=== PATIENT | female | born 1960 | race Caucasian/White ===

== ENCOUNTER 2020-06-20 15:31 | Outpatient (REF) | payer OTHER, SELFPAY ==
--- NOTE | 2020-06-20 | MM_ITS ---
EXAMINATION: MM SCREENING DIGITAL BREAST TOMOSYNTHESIS, BILATERAL CLINICAL INFORMATION: Screening. Asymptomatic. The lifetime risk of breast cancer based on the Tyrer-Cuzick Model is 11%. COMPARISON: Mammography: 09/20/2018, 09/06/2017, 07/31/2016 TECHNIQUE: Digital breast tomosynthesis is performed in both the craniocaudal and mediolateral oblique views along with computer-aided detection (CAD). Synthesized 2D images are generated from the tomosynthesis. Additional right MLO view is provided. FINDINGS: There are scattered areas of fibroglandular density (ACR BI-RADS breast composition Category b). There are no significant masses, abnormal calcifications, or other abnormalities. Parenchymal pattern is similar to prior studies. MM/MM tomosynthesis screening BI IMPRESSION: No mammographic evidence of malignancy. ASSESSMENT: BI-RADS 1: Negative RECOMMENDATION: Routine annual mammography screening. This patient's information was entered into a reminder system with a target due date for their next mammogram.
== END 2020-06-20 15:32 | disposition home or self-care (01) ==
LOC: HO.MAMMO 15:31
PROVIDERS: PCP Family Medicine; Visit Provider Family Medicine
DX: Z12.31 Encounter for screening mammogram for malignant neoplasm of breast (principal)
CPT/HCPCS: 77063; 77067

== ENCOUNTER 2020-09-23 17:35 | Emergency (ER) | payer OTHER, SELFPAY ==
--- NOTE | ~2020-09-23 | XR_ITS ---
EXAMINATION: LUMBAR SPINE AND LEFT HIP CLINICAL INFORMATION: Back pain radiating to hip COMPARISON: Lumbar spine 02/25/[address] abdomen pelvis 02/16/2011 TECHNIQUE: 4 views lumbosacral spine, single view pelvis with 2 additional views left hip FINDINGS: Lumbar spine: Degenerative changes are present in the lumbar spine with mild disc space narrowing at L2-L3 and L4-L5 with large anterior osteophytes. Degenerative changes also present at L5-S1. No bony destructive lesions are seen. Pelvis and left hip: Mild degenerative changes are present in both hips, left greater than right with supra-acetabular sclerosis and osteophyte formation. No fractures or bony destructive lesions are seen. Degenerative changes present in both SI joints as well. XR/XR lumbar spine 2-3V IMPRESSION: 1. Mild degenerative changes lumbar spine. 2. Mild degenerative changes both hips, left greater than right. 3. Sclerotic degenerative changes SI joints
--- NOTE | ~2020-09-23 | XR_ITS ---
EXAMINATION: LUMBAR SPINE AND LEFT HIP CLINICAL INFORMATION: Back pain radiating to hip COMPARISON: Lumbar spine 02/25/[address] abdomen pelvis 02/16/2011 TECHNIQUE: 4 views lumbosacral spine, single view pelvis with 2 additional views left hip FINDINGS: Lumbar spine: Degenerative changes are present in the lumbar spine with mild disc space narrowing at L2-L3 and L4-L5 with large anterior osteophytes. Degenerative changes also present at L5-S1. No bony destructive lesions are seen. Pelvis and left hip: Mild degenerative changes are present in both hips, left greater than right with supra-acetabular sclerosis and osteophyte formation. No fractures or bony destructive lesions are seen. Degenerative changes present in both SI joints as well. XR/XR hip LT w PEL1V IMPRESSION: 1. Mild degenerative changes lumbar spine. 2. Mild degenerative changes both hips, left greater than right. 3. Sclerotic degenerative changes SI joints
[2020-09-23 18:38] VITALS: BP 154/83; PULSE 98; RESP 18; TEMP 36.1; O2SAT 97; BMI 40.6
[2020-09-23] MEDS: predniSONE 20 MG TABLET 60 MG PO (19:59)
[2020-09-23] MEDS: Cyclobenzaprine HCl 5 MG TABLET PO (19:59)
[2020-09-23] MEDS: Ketorolac Tromethamine 30 MG/ML VIAL IM (20:00)
--- NOTE | 2020-09-23 20:05 | ED.GENADULT ---
HPI - General Adult General Chief complaint: Extremity Problem Stated complaint: LEG PAIN Time Seen by Provider: 09/23/20 18:50 Source: patient Mode of arrival: ambulatory Limitations: no limitations History of Present Illness HPI narrative: Patient presents to left lower back left hip pain radiating down leg. Patient states yesterday she was in the shower and took a step and turned too quickly and felt sudden pain in her left lower back and left hip. Patient states she feels like she pulled a muscle in her back. Patient denies falling to the ground hitting or head. Patient states left low back pain radiating down leg. Patient denies any actual pain on leg. Patient denies any urinary/bowel incontinence Related Data Previous Rx's Medication Instructions Recorded acetaminophen [Tylenol] 325 mg PO QID PRN #28 cap 09/23/20 cyclobenzaprine 10 mg PO TID PRN #18 tab 09/23/20 prednisone 40 mg PO DAILY 7 Days #14 tab 09/23/20 Allergies Allergy/AdvReac Type Severity Reaction Status Date / Time No Known Allergies Allergy Unverified 03/07/20 16:08 [No Known Allergies*] seafood Allergy Unknown Unknown Uncoded 09/23/20 18:35 whey protein Allergy Unknown Unknown Uncoded 09/23/20 18:35 Review of Systems Review of Systems: Yes all other systems are reviewed and are negative Constitutional: Constitutional: Reports as per HPI and Reports no additional constitutional complaints Eyes: Eyes: Reports as per HPI and Reports no additional eye complaints ENT: Reports system reviewed and no additional complaints, except as documented and Reports as per HPI Cardiovascular: Cardiovascular: Reports as per HPI and Reports no additional cardiovascular complaints Respiratory: Respiratory: Reports as per HPI and Reports no additional respiratory complaints Gastrointestinal: Gastrointestinal: Reports as per HPI and Reports no additional gastrointestinal complaints Genitourinary: Genitourinary: Reports no additional female genitourinary complaints and Reports as per HPI Musculoskeletal: Musculoskeletal: Reports no additional musculoskeletal complaints, Reports as per HPI and Reports back pain (Left-sided radiating down left leg.) Neurologic: Reports system reviewed and no additional complaints, except as documented and Reports as per HPI Psychiatric: Psychiatric: Reports no additional psychiatric complaints and Reports as per HPI PMF Social History Social History Alcohol intake: never Smoking Status: Former smoker Smoked in Last 30 Days: No Use of substances other than those prescribed or required for medical reasons: No Advance Directives: No Advance Directives Information Provided: Yes Physical Exam Vital Signs: Vital Signs: Last Vital Signs Temp 97.0 F 09/23/20 18:38 Pulse 98 09/23/20 18:38 Resp 18 09/23/20 18:38 BP 154/83 H 09/23/20 18:38 Pulse Ox 97 09/23/20 18:38 Body Mass Index 40.6 Const: General: cooperative, healthy appearing, comfortable, no acute distress, well developed, alert, awake and Physically active Orientation/consciousness: oriented to time and patient oriented x3 HENMT: Head: Yes normal to inspection, Yes No palpable skull fracture present, Yes normocephalic, Yes atraumatic, No abrasion, No Dorantes's sign, No contusion, No cranial bruits, No hematoma, No laceration, No occipital foramen tenderness, No palpable skull fracture, No raccoon eyes, No scalp lesion, No scalp tenderness, No Temporal artery tenderness present and No periorbital ecchymosis Eyes: General: appearance normal, both eyes and all related structures Neck: Neck: Yes normal visual inspection and Yes full ROM Chest: Chest palpation & inspection: normal inspection of the chest and normal palpation of entire chest wall Resp: Effort & Inspection: normal respiratory effort and able to speak in complete sentences Cardio: Jugular venous distension: no JVD Heart sounds: S1 normal heart sound present and S2 normal heart sound present GI: Inspection: Yes normal to inspection and No abdominal wall ecchymosis Palpation (GI): Soft to palpation, not firm, nontender, no guarding and not rigid : Other: Patient refused rectal exam. General: No CVA tenderness and Yes no CVA tenderness Back/Spine/Pelvis: Back: no CVA tenderness, No CVA tenderness and back tenderness ( left sided Lumbar tenderness) Skin: General skin exam: no rashes or lesions noted and elasticity normal Neuro: General: oriented to time, patient oriented x3 and CN's II-XI intact bilaterally Cranial nerves: Yes CN's II-XII intact bilaterally Extrem: Other: Bilateral lower extremities negative for any tenderness, redness, swelling, crepitus, or calf pain. Bilateral lower extremities positive for pedal pulses. Vascular and neuro exam is intact. Mild left hip tenderness Course Course Course Narrative: History physical exam indicates muscle spasm/muscle strain but due to the age will do x-ray to rule out fractures. patient does not want rectal exam, which was recommended due to slight dragging of left leg. Patient refused even when explained it was necessary to make there was no sign of cord compression ( although very unlikely due to history). Reevaluation(s) Reevaluation #1: X-ray negative for fracture but shows chronic arthritis. Patient informed to follow-up with PCP for MRI if back pain does not improve. Medical Decision Making MDM Narrative Medical decision making narrative: Osteoarthritis. Back strain Discharge Plan Discharge Clinical Impression: Low back strain, Hip strain, Osteoarthritis Patient Disposition: Home, Self-Care Instructions: Osteoarthritis (ED), Low Back Strain (ED), Arthritis (ED) Additional Instructions: Regrese inmediatamente al servicio de urgencias si tiene incontinencia urinaria / intestinal, incapacidad para caminar, dolor intenso, disuria, hematuria, v?mitos, dolor abdominal, par?lisis de las extremidades inferiores, fiebre, escalofr?os o cualquier otro s?ntoma que le preocupe. Tesha un seguimiento con olivares PCP para brody resonancia magn?otilio si no hay mejor?a en el dolor Prescriptions: New prednisone 20 mg tablet 40 mg PO DAILY 7 Days Qty: 14 RF: 0 cyclobenzaprine 10 mg tablet 10 mg PO TID PRN (Reason: muscle spasm) Qty: 18 RF: 0 acetaminophen [Tylenol] 325 mg capsule 325 mg PO QID PRN (Reason: pain) Qty: 28 RF: 0 Interventions: ED Discharge Assessment Last Done: 09/23/20 20:38 Discharge Date/Time: 09/23/20 20:42
== END 2020-09-23 20:42 | disposition home or self-care (01) ==
PROVIDERS: Emergency Provider Internal Medicine
DX: S76.012A Strain of muscle, fascia and tendon of left hip, initial encounter (principal); S39.012A Strain of muscle, fascia and tendon of lower back, initial encounter; X50.1XXA Overexertion from prolonged static or awkward postures, initial encounter; M16.0 Bilateral primary osteoarthritis of hip; M47.816 Spondylosis without myelopathy or radiculopathy, lumbar region; R60.0 Localized edema; Y93.E1 Activity, personal bathing and showering; Y92.012 Bathroom of single-family (private) house as the place of occurrence of the external cause; Y99.9 Unspecified external cause status
CPT/HCPCS: 72100; 73502; 96372; 99284; J1885

== ENCOUNTER 2020-10-23 10:59 | Outpatient (REF) | payer SELFPAY | END 2020-10-23 11:00 | disposition home or self-care (01) | LOC: HO.HAP 10:59 | PROVIDERS: Visit Provider Family Medicine | DX: Z46.1 Encounter for fitting and adjustment of hearing aid (principal) | CPT/HCPCS: V5267 ==

== ENCOUNTER 2020-10-23 11:02 | Outpatient (REF) | payer OTHER, SELFPAY | END 2020-10-23 11:03 | disposition home or self-care (01) | LOC: HO.HAP 11:02 | PROVIDERS: Visit Provider Family Medicine | DX: Z46.1 Encounter for fitting and adjustment of hearing aid (principal) | CPT/HCPCS: V5266 ==

== ENCOUNTER → 2020-12-18 08:47 | Outpatient (REF) | payer OTHER, SELFPAY | LOC: HO.CARD 08:47 | PROVIDERS: Visit Provider Internal Medicine Cardiovascular Disease | DX: Z13.89 Encounter for screening for other disorder (principal) ==

== ENCOUNTER → 2020-12-31 09:06 | Outpatient (REF) | payer OTHER, SELFPAY ==
--- NOTE | ~2020-12-31 | NM_ITS ---
Lexiscan Myocardial perfusion study Indication: Chest pain, diabetes, hypertension, hyperlipidemia, assess for coronary disease and ischemia Technique: The patient was brought in for a Lexiscan perfusion study on 12/31/2020 and was injected 0.4 mg of Lexiscan intravenously. Within a minute of this injection 30 mCi of sestamibi was given intravenously. Images were obtained using the SPECT gamma camera interlaced with the gating device. Images were obtained in supine position. Resting perfusion study was performed on 01/01/2021. Patient was administered 30 mCi of sestamibi intravenously at rest. Images were then obtained in supine position. Total DLP 175mGy-cm. Images were processed with the software and compared side to side in short axis, horizontal long axis and vertical long axis views. Findings: Raw acquisition was reviewed. The stress perfusion study showed diminished tracer uptake along the distal anterolateral wall. With CT attenuation correction there is improvement and hence could be from soft tissue attenuation artifact. The gated study shows normal LV systolic function with calculated LVEF of 65%. LV cavity is normal in size. The gated study shows normal wall thickening and contraction of segments. Resting study shows no significant perfusion abnormality. Gating at rest reveals normal wall motion with ejection fraction at 67%. The findings are consistent with reversible distal anterolateral defect suspected to be from soft tissue attenuation artifact. NM/NM kofi perf SPECT rest & str Impression: 1. Myocardial perfusion imaging study shows no definitive evidence of any ischemia or infarction. Reversible distal anterolateral defect but improving with CT attenuation correction and hence likely from soft tissue attenuation artifact. 2. Gated LVEF is 65% during stress and 67% during rest. 3. Transient ischemic dilatation not present. EKG component of the test reported separately.
--- NOTE | 2020-12-31 09:30 | CA_ITS ---
Acquisition Time: 2020-12-31 09:40:19 Total Exercise Time: 00:02:00 Test Indications: CP Medications: SEE CHART Protocol: LEXISCAN Max HR: 129 BPM 80% of Pred: 161 BPM Max BP: 128/080 mmHG Max Work Load: 1.0 METS Pharmacological stress test using Lexiscan while sitting and kicking her feet. Pt tolerated well, denies any anginal sx. EKG with occasional PVC's, non-diagnostic for ischemia. Nuclear images to follow. Normotensive response tpo test. Test reviewed with Dr. Aguilar. Referred By: Lonny Mattson Overread By: Kimberly Saenz NP
== END ==
LOC: HO.CARD 09:06
PROVIDERS: Visit Provider Internal Medicine Cardiovascular Disease
DX: R07.9 Chest pain, unspecified (principal)
CPT/HCPCS: 78452; 93017; A9500; J0280; J2785

== ENCOUNTER → 2021-02-26 09:45 | Outpatient (BNVA) | payer OTHER, SELFPAY | PROVIDERS: PCP Family Medicine; Referring Provider Family Medicine; Visit Provider Internal Medicine Cardiovascular Disease | DX: R07.89 Other chest pain (principal); E78.5 Hyperlipidemia, unspecified | CPT/HCPCS: 93005; 99202 ==

== ENCOUNTER 2021-05-07 13:43 | Outpatient (REF) | payer OTHER, SELFPAY | END 2021-05-07 13:44 | disposition home or self-care (01) | LOC: HO.HAP 13:43 | PROVIDERS: Visit Provider Family Medicine | DX: Z46.1 Encounter for fitting and adjustment of hearing aid (principal); H90.3 Sensorineural hearing loss, bilateral | CPT/HCPCS: V5266 ==

== ENCOUNTER 2021-05-07 13:54 | Outpatient (REF) | payer SELFPAY | END 2021-05-07 13:55 | disposition home or self-care (01) | LOC: HO.HAP 13:54 | PROVIDERS: Visit Provider Family Medicine | DX: Z46.1 Encounter for fitting and adjustment of hearing aid (principal); H90.3 Sensorineural hearing loss, bilateral | CPT/HCPCS: V5267 ==

== ENCOUNTER 2021-07-23 11:46 | Outpatient (REF) | payer OTHER, SELFPAY ==
--- NOTE | ~2021-07-23 | MM_ITS ---
EXAMINATION: MM SCREENING DIGITAL BREAST TOMOSYNTHESIS, BILATERAL CLINICAL INFORMATION: Screening. Asymptomatic. The lifetime risk of breast cancer based on the Tyrer-Cuzick Model is 13%. COMPARISON: Mammography: 06/20/2020, 09/20/2018, 09/06/2017 TECHNIQUE: Digital breast tomosynthesis is performed in both the craniocaudal and mediolateral oblique views along with computer-aided detection (CAD). Synthesized 2D images are generated from the tomosynthesis. Additional bilateral MLO views are provided. FINDINGS: There are scattered areas of fibroglandular density (ACR BI-RADS breast composition Category b). There are no significant masses, abnormal calcifications, or other abnormalities. Parenchymal pattern is similar to prior studies. There is no developing density or architectural abnormality. The axilla and skin contours are unremarkable. No significant changes. MM/MM tomosynthesis screening BI IMPRESSION: No mammographic evidence of malignancy. ASSESSMENT: BI-RADS 1: Negative RECOMMENDATION: Routine annual mammography screening. This patient's information was entered into a reminder system with a target due date for their next mammogram.
== END 2021-07-23 11:47 | disposition home or self-care (01) ==
LOC: HO.MAMMO 11:46
PROVIDERS: PCP Family Medicine; Visit Provider Family Medicine
DX: Z12.31 Encounter for screening mammogram for malignant neoplasm of breast (principal)
CPT/HCPCS: 77063; 77067

== ENCOUNTER → 2021-07-30 14:01 | Outpatient (BNVA) | payer OTHER, SELFPAY | PROVIDERS: PCP Family Medicine; Referring Provider Family Medicine; Visit Provider Internal Medicine Cardiovascular Disease | DX: R07.89 Other chest pain (principal); E78.5 Hyperlipidemia, unspecified | CPT/HCPCS: 99212 ==

== ENCOUNTER 2021-11-10 13:38 | Outpatient (REF) | payer MEDICARE, MEDICAID, SELFPAY ==
--- NOTE | 2021-11-12 15:22 | MHC.AU.HAS ---
Hearing Aid Evaluation Date of Visit: 11/10/21 Commercial Lines Underwriter Used: Setswana- By Phone Historical Information: Description of Hearing: Moderate to severe sensorineural hearing loss bilaterally, worse in the right ear Current personal amplification information, if applicable: Oticon Nera Pro CIC, obtaiend 08/10/2014 Summary: Patient was seen for audiological evaluation (see separate report for details). The shell broke on her right hearing aid. Maintenance performed on the left instrument. Patient is eligible for new hearing aids. Options were discussed. She would like to switch to the AGUEDA style. She reports that she does not have a smartphone. Hearing Aid Prescription: Based on the individual?s shared listening needs, communication environments, dexterity, desire for connectivity, and personal preferences, the following prescription for amplification has been made: Right ear: Conductor Orchestra: Phonak Model: Audeo P70-R Battery Size: Rechargeable Color: Silver Investor Relations Analyst: 0M Left ear: Conductor Orchestra: Phonak Model: Audeo P70-R Battery Size: Rechargeable Color: Silver Investor Relations Analyst: 0M Action Taken/Action Needed: Medical Clearance to be requested from PCP/ENT Hearing Instrument Fitting to be scheduled when materials arrive Primary Diagnosis: H90.3 Bilateral Sensorineural Hearing Loss Signature: Provider: Norberto Chung, [facility]
--- NOTE | 2021-11-12 15:23 | MHC.AU.AHA ---
Adult Audiological Evaluation Date of Visit: 11/10/21 Nutrition Professor Used: [place]- By Phone Reason for Appointment: History of hearing loss. Patient's hearing was last evaluated in 2016. She suspects her hearing has decreased over the last 6 years. Previous Hearing Test Results: At this clinic on 07/17/2015- Moderate to moderately-severe sensorineural hearing loss bilaterally, worse in the right ear. Medical History: Medical History: Diabetes, Hypothyroidism, Seasonal Allergies Hearing Instrument History- Right Ear: Caretaker Resort: Oticon Model: Nera Pro CIC Dispensed By: [facility] Date of Fittin08/10/2014 Hearing Instrument History- Left Ear: Caretaker Resort: Oticon Model: Nera Pro CIC Dispensed By: [facility] Date of Fittin08/10/2014 Otoscopy: Right Ear: Unremarkable Left Ear: Unremarkable Hearing Evaluation: Transducer(s) Used: Insert Earphones Method: Conventional Audiometry Stimuli Used: Pure Tones Right Ear: Description of Hearing: Moderate to severe sensorineural hearing loss Left Ear: Description of Hearing: Moderate to severe sensorineural hearing loss Speech Recognition Threshold (SRT): Method Used: Recorded Lists Stimuli Used: [place] Trisyllable Words Right Ear: 70 dBHL Left Ear: 65 dBHL Word Discrimination: Method: Recorded Lists Word Lists Used: Lista Bisil?bica (Anguillan) Right Ear: 96% at 95 dBHL Left Ear: 96% at 90 dBHL Comparison: Compared to the most recent evaluation: Thresholds have decreased bilaterally. Recommendations: Audiological re-evaluation in one year. See Hearing Aid Evaluation report for more information. Diagnosis: Primary Diagnosis: H90.3 Bilateral Sensorineural Hearing Loss Signature: Provider: Norberto Chung, [facility]
--- NOTE | 2021-11-12 15:24 | MHC.AU.MED ---
Medical Clearance for Hearing Instrumentation Date: 11/12/21 Patient Name: Aaron Ignacio Date of : 1960 Referring Provider: Yashira Bethea MD We have seen your patient on 11/10/21 and have determined that they are a candidate for amplification (See accompanying report). Specifically, they would benefit from: Hearing aid use in both ears There is a statute that addresses Medical Evaluation Requirements prior to fitting a patient with a hearing aid. According to [place] statute 265 CMR:6.03(1), (a) General. Except as provided in 265 CMR 6.03(1)(b), a tour bus driver/guide shall not sell a hearing aid unless the prospective user has presented to the tour bus driver/guide a written statement signed by a licensed physician that states that the patient's hearing loss has been medically evaluated and the patient may be considered a candidate for a hearing aid. The medical evaluation must have taken place within the preceding six months. Please note: Due to the [place] Statute referenced above, we cannot accept a signature other than that of a licensed physician. EMPLOYEE RELATIONS DIRECTOR and PA signatures cannot be accepted. I am in agreement with the above recommendation. There is no medical contraindication for hearing instrumentation. Physician Signature Date Physician Name (Printed)
== END 2021-11-10 13:39 | disposition home or self-care (01) ==
LOC: HO.SH 13:38
PROVIDERS: Visit Provider Family Medicine
DX: Z01.118 Encounter for examination of ears and hearing with other abnormal findings (principal); H90.3 Sensorineural hearing loss, bilateral
CPT/HCPCS: 92557; 92591

== ENCOUNTER 2021-12-04 12:20 | Outpatient (REF) | payer MEDICARE, MEDICAID, SELFPAY ==
--- NOTE | 2021-12-08 11:25 | MHC.AU.HFA ---
Hearing Instrument Fitting- Adult- Binaural Date of Visit: 12/04/21 Nurse Emergency Used: No in-person hospital interpreters were available. Patient signed waiver for Demarcus Parra to provide [place] interpretation at today's visit. Hearing Instruments Dispensed: Right Ear: Precision Lens Technician: Phonak Model: Audeo P70-R Serial Number: [id number] Repair Warranty: 02/17/2025 Loss and Damage Warranty: 02/17/2025 Battery Size: Rechargeable Color: Silver Nurses Director: 0M Type of Mold: Small Power Type of Wax Guard: CeruShield Left Ear: Precision Lens Technician: Phonak Model: Audeo P70-R Serial Number: [id number] Repair Warranty: 02/17/2025 Loss and Damage Warranty: 02/17/2025 Battery Size: Rechargeable Color: Silver Nurses Director: 0M Type of Dome: Small Power Type of Wax Guard: CeruShield Summary of Fitting: Patient arrived for hearing aid fitting. Feedback house manager was run. Verifit was performed and levels adjusted to better reach targets. Target gain set to 100%. Patient was pleased with the sound and feel of the instruments. Hearing aid care and maintenance were discussed and practiced. Patient does not currently have a smartphone. Recommendations: Patient is an experienced hearing aid user and will call for follow-up if needed. Diagnosis Code(s): Primary Diagnosis: H90.3 Bilateral Sensorineural Hearing Loss Signature: Provider: Norberto Chung, [facility]
== END 2021-12-04 12:21 | disposition home or self-care (01) ==
LOC: HO.HAP 12:20
PROVIDERS: Visit Provider Family Medicine
DX: Z46.1 Encounter for fitting and adjustment of hearing aid (principal); H90.3 Sensorineural hearing loss, bilateral
CPT/HCPCS: V5011; V5020; V5160; V5261

== ENCOUNTER → 2022-03-19 12:52 | Outpatient (BNVA) | payer MEDICARE, MEDICAID, SELFPAY | PROVIDERS: PCP Family Medicine; Referring Provider Family Medicine; Visit Provider Nurse Practitioner Family | DX: R07.89 Other chest pain (principal); E78.5 Hyperlipidemia, unspecified | CPT/HCPCS: 93005; 99212 ==

== ENCOUNTER 2022-04-07 10:27 | Outpatient (REF) | payer MEDICARE, MEDICAID, SELFPAY | END 2022-04-07 10:28 | disposition home or self-care (01) | LOC: HO.HAP 10:27 | PROVIDERS: Visit Provider Family Medicine | DX: Z13.89 Encounter for screening for other disorder (principal) ==

== ENCOUNTER 2022-04-08 09:56 | Outpatient (REF) | payer MEDICARE, MEDICAID, SELFPAY | END 2022-04-08 09:57 | disposition home or self-care (01) | LOC: HO.HAP 09:56 | PROVIDERS: Visit Provider Family Medicine | DX: Z13.89 Encounter for screening for other disorder (principal) ==

== ENCOUNTER 2022-07-13 10:31 | Outpatient (REF) | payer MEDICARE, MEDICAID, SELFPAY | END 2022-07-13 10:32 | disposition home or self-care (01) | LOC: HO.HAP 10:31 | PROVIDERS: Visit Provider Family Medicine | DX: Z13.89 Encounter for screening for other disorder (principal) ==

== ENCOUNTER 2022-07-14 10:35 | Outpatient (REF) | payer MEDICARE, MEDICAID, SELFPAY | END 2022-07-14 10:36 | disposition home or self-care (01) | LOC: HO.HAP 10:35 | PROVIDERS: Visit Provider Family Medicine | DX: Z13.89 Encounter for screening for other disorder (principal) ==

== ENCOUNTER 2022-07-14 10:40 | Outpatient (REF) | payer SELFPAY | END 2022-07-14 10:41 | disposition home or self-care (01) | LOC: HO.HAP 10:40 | PROVIDERS: PCP Family Medicine; Visit Provider Family Medicine | DX: Z46.1 Encounter for fitting and adjustment of hearing aid (principal); H90.3 Sensorineural hearing loss, bilateral | CPT/HCPCS: V5267 ==

== ENCOUNTER 2022-07-24 12:23 | Outpatient (REF) | payer MEDICARE, MEDICAID, SELFPAY ==
--- NOTE | ~2022-07-24 | MM_ITS ---
EXAMINATION: MM SCREENING DIGITAL BREAST TOMOSYNTHESIS, BILATERAL CLINICAL INFORMATION: Screening. Asymptomatic. The lifetime risk of breast cancer based on the Tyrer-Cuzick Model is 10.6%. COMPARISON: Mammography: July 23, 2021 and studies dating back to June 22, 2015 TECHNIQUE: Digital breast tomosynthesis is performed in both the craniocaudal and mediolateral oblique views along with computer-aided detection (CAD). Synthesized 2D images are generated from the tomosynthesis. FINDINGS: There are scattered areas of fibroglandular density (ACR BI-RADS breast composition Category b). There are no significant masses, abnormal calcifications, or other abnormalities. MM/MM tomosynthesis screening BI IMPRESSION: No significant changes from prior exam. ASSESSMENT: BI-RADS 1: Negative RECOMMENDATION: Routine annual mammography screening. This patient's information was entered into a reminder system with a target due date for their next mammogram.
== END 2022-07-24 12:24 | disposition home or self-care (01) ==
LOC: HO.MAMMO 12:23
PROVIDERS: PCP Family Medicine; Visit Provider Family Medicine
DX: Z12.31 Encounter for screening mammogram for malignant neoplasm of breast (principal)
CPT/HCPCS: 77063; 77067

== ENCOUNTER 2022-09-18 10:33 | Outpatient (REF) | payer MEDICARE, MEDICAID, SELFPAY ==
--- NOTE | 2022-09-18 13:51 | MHC.AU.HA3 ---
Hearing Instrument Follow-Up- Binaural Date of Visit: 09/18/22 Right Ear: Jero, , Color, Serial Number: Nate Paredes P 70-R Juan Carvalho, Serial #[id number] Structural Steel Fitter Repair Warranty: 02/17/2025 Structural Steel Fitter Loss and Damage Warranty: 02/17/2025 [facility] Service Plan: 12/04/2022 Battery Size: Rechargeable Assistant Gm Of Content & Delivery/Slim Tube: 0M Earmold/Dome/CShell/SlimTip:Small power dome Type of Wax Guard: CeruShield Dispensed By: [facility] Date of Fittin12/04/2021 Left Ear: Model Jero, Color, Serial Number: Nate Paredes P 70-R Juan Carvalho Serial # [id number] Structural Steel Fitter Repair Warranty: 02/17/2025 Structural Steel Fitter Loss and Damage Warranty: 02/17/2025 [facility] Service Plan: 12/04/2022 Battery Size: Rechargeable Assistant Gm Of Content & Delivery/Slim Tube: 0M Earmold/Dome/CShell/SlimTip: Small power dome Type of Wax Guard: CeruShield Dispensed By: [facility] Date of Fittin12/04/2021 Follow-Up Summary: Aaron dropped off both hearing aids as well as her optical instrument repairer, cord, and wall adapter reporting that the hearing aids are not charging properly. Upon inspection, hearing aids appear to charge successfully using Aaron's charging equipment; however, domes and wax guards were completely occluded. Cleaned hearing aids and replaced both domes and wax guards. Allowed hearing aids to charge for about 15 minutes in office. A listening check demonstrated that the hearing aids are in good working order. Recommendations: Hearing instrument maintenance in 6 months, or sooner if needed. Patient will call if problems persist. Diagnosis Code(s): Primary Diagnosis: H90.3 Bilateral Sensorineural Hearing Loss Signature: Provider: Nikolay Colón, [facility]
== END 2022-09-18 10:34 | disposition home or self-care (01) ==
LOC: HO.HAP 10:33
PROVIDERS: Visit Provider Family Medicine
DX: Z13.89 Encounter for screening for other disorder (principal)

== ENCOUNTER 2022-09-21 11:22 | Outpatient (REF) | payer MEDICARE, MEDICAID, SELFPAY | END 2022-09-21 11:23 | disposition home or self-care (01) | LOC: HO.HAP 11:22 | PROVIDERS: Visit Provider Family Medicine | DX: Z13.89 Encounter for screening for other disorder (principal) ==

== ENCOUNTER 2022-12-16 10:35 | Outpatient (REF) | payer MEDICARE, MEDICAID, SELFPAY | END 2022-12-16 10:36 | disposition home or self-care (01) | LOC: HO.HAP 10:35 | PROVIDERS: Visit Provider Family Medicine | DX: Z13.89 Encounter for screening for other disorder (principal) ==

== ENCOUNTER 2022-12-29 10:29 | Outpatient (REF) | payer MEDICARE, MEDICAID, SELFPAY | END 2022-12-29 10:30 | disposition home or self-care (01) | LOC: HO.HAP 10:29 | PROVIDERS: Visit Provider Family Medicine | DX: Z13.89 Encounter for screening for other disorder (principal) ==

== ENCOUNTER 2022-12-29 11:34 | Outpatient (REF) | payer MEDICARE, MEDICAID, SELFPAY ==
[2022-12-29 13:38] LABS: Estimated Average Glucose 163 mg/dL; Hemoglobin A1C 182.7698 umol/L; Hemoglobin A1c % 7.3 %
== END 2022-12-29 11:35 | disposition home or self-care (01) ==
LOC: HO.HHCL 11:34
PROVIDERS: Visit Provider Family Medicine
DX: E11.9 Type 2 diabetes mellitus without complications (principal); Z79.4 Long term (current) use of insulin
CPT/HCPCS: 36415; 83036

== ENCOUNTER 2023-01-31 10:17 | Emergency (ER) | payer MEDICARE, MEDICAID, SELFPAY ==
--- NOTE | ~2023-01-31 | XR_ITS ---
EXAMINATION: XR CHEST CLINICAL INFORMATION: Chest pain COMPARISON: Previous chest x-ray May 2018 TECHNIQUE: 2 views of the chest were obtained. FINDINGS: No significant abnormality is noted involving the heart, lungs, mediastinum, bony thorax or soft tissues. Degenerative changes of the spine. XR/XR chest 2V IMPRESSION: No evidence for acute disease in the chest.
--- NOTE | 2023-01-31 10:20 | ECG_ITS ---
Test Reason : CP Blood Pressure : / mmHG Vent. Rate : 102 BPM Atrial Rate : 102 BPM P-R Int : 144 ms QRS Dur : 084 ms QT Int : 338 ms P-R-T Axes : 039 -03 051 degrees QTc Int : 440 ms Sinus tachycardia Otherwise normal ECG When compared with ECG of 31-JAN-2023 10:23, No significant change was found Referred By: Generic ED Physician Electronically Signed By:BARB BISHOP MD
--- NOTE | 2023-01-31 10:23 | ECG_ITS ---
Test Reason : Chest Pain Blood Pressure : / mmHG Vent. Rate : 100 BPM Atrial Rate : 100 BPM P-R Int : 136 ms QRS Dur : 086 ms QT Int : 342 ms P-R-T Axes : 038 -03 051 degrees QTc Int : 441 ms Normal sinus rhythm Normal ECG When compared with ECG of 01-JUN-2018 12:40, No significant change was found Referred By: Phoenix Carreno Electronically Signed By:KATHY JENNINGS
[2023-01-31 10:28] VITALS: BP 148/87; PULSE 100; RESP 19; TEMP 36.9; O2SAT 96; BMI 46.3
[2023-01-31 10:44] VITALS: O2SAT 98
--- NOTE | 2023-01-31 10:55 | PC.NURSE ---
pt a&ox3. respirations even and unlabored. lung sounds clear bilaterally. pt reports having chest pain yesterday that gets worse with movement. pt states today the pain has not resolved. without movement the pain is 2/10. pt denies SOB.
[2023-01-31 11:31] LABS: MANUAL DIFF FLAG NO
[2023-01-31 11:33] LABS: Basophils Percent Auto 0.4 % (0-2); Eosinophils Absolute Auto 0.2 X10*3/uL (0.0-0.4); Eosinophils Percent Auto 2.2 % (0-4); Hemoglobin 12.3 g/dl (12.0-16.0); Imm Gran Abs Auto 0.02 X10*3/uL (0.00-0.03); Imm Gran Pct Auto 0.3 % (0.0-0.4); Lymphocytes Absolute Auto 2.1 X10*3/uL (1.2-4.9); Lymphocytes Percent Auto 28.1 % (20-40); Mean Corpuscular HGB Conc 31.5 g/dl (31.0-35.0); Mean Corpuscular Hemoglobin 25.8 pg (27.0-33.0); Mean Corpuscular Volume 81.9 fL (80.0-98.0); Mean Platelet Volume 9.4 fL (9.4-12.3); Monocytes Absolute Auto 0.6 X10*3/uL (0.1-1.2); Monocytes Percent Auto 8.2 % (2-11); Neutrophils Absolute Auto 4.4 x10*3/uL (2.0-8.3); Neutrophils Percent Auto 60.8 % (45-73); Platelet Count 204 X10*3/uL (160-400); Red Blood Count 4.76 X10*6/uL (4.20-5.50); Red Cell Distribution Width 14.7 % (11.0-16.0); White Blood Count 7.3 X10*3/uL (4.8-10.8)
[2023-01-31 11:53] LABS: Alanine Aminotransferase 32 U/L (0-31); Albumin Level 3.5 g/dL (3.5-5.0); Alkaline Phosphatase 99 U/L (39-117); Anion Gap 10 (12-20); Aspartate Amino Transferase 32 U/L (5-31); Bilirubin Total 0.3 mg/dL (0.0-1.0); Blood Urea Nitrogen 13 mg/dL (9-16); Calcium 9.4 mg/dL (8.4-10.2); Carbon Dioxide 25 mmol/L (22-29); Chloride 106 mmol/L (96-108); Estimated Glomerular Filt Rate > 60; Glucose Random 224 mg/dL (60-115); Potassium 4.2 mmol/L (3.3-5.1); Sodium 137 mmol/L (135-145); Total Protein 7.6 g/dL (6.5-8.0)
[2023-01-31 12:04] LABS: Troponin-I High Sensitivity < 2.7 ng/L (<3.5-17.0)
--- NOTE | 2023-01-31 12:05 | ED_ITS ---
HPI - General Adult General Chief complaint: General Medical Stated complaint: Chest pain/L arm pain Time Seen by Provider: 01/31/23 12:04 Source: patient Mode of arrival: ambulatory Limitations: no limitations History of Present Illness HPI narrative: 62 yo female with history of DM2, HTN, hypothyroidism, asthma, morbid obesity presents to the ER for evaluation of sharp chest pain that occurred yesterday while she was doing laundry. She states the pain was sharp and constant, came on gradually. Shortly after she also developed left shoulder pain when lifting the laundry basket. Her chest pain resolved but the shoulder pain persisted. Pain is worse with ROM. She states when she had the chest pain she was not SOB or nauseated. No diaphoresis. History of similar episodes in the past. She denies any current pain. MD complaint: chest pain & left shoulder pain Onset (ago): day(s) (1) Location: chest, left and upper extremity Radiation: non-radiation Severity: moderate Quality: aching and sharp Pain Consistency: now resolved Relieving factors: rest Exacerbating factors: movement and other (palpation) Associated symptoms: denies other symptoms Treatments prior to arrival: none Related Data Home Medications Medication Instructions Recorded Confirmed albuterol sulfate 90 mcg/actuation 2 puff PO Q4-6H PRN 02/26/21 03/19/22 aerosol inhaler aspirin 81 mg tablet,delayed 81 mg PO DAILY 02/26/21 03/19/22 release cetirizine 10 mg tablet 10 mg PO BEDTIME 02/26/21 03/19/22 dulaglutide 0.75 mg/0.5 mL mg subcut QWEEK 02/26/21 03/19/22 subcutaneous pen injector (Trulicity) insulin aspart U-100 100 unit/mL subcut 02/26/21 03/19/22 (3 mL) subcutaneous pen (Novolog FlexPen U-100 Insulin aspart) insulin glargine 100 unit/mL (3 48 unit subcut BEDTIME 02/26/21 03/19/22 mL) subcutaneous pen (Lantus Solostar U-100 Insulin) levothyroxine 75 mcg tablet 75 mcg PO DAILY 02/26/21 03/19/22 lisinopril 10 mg tablet 10 mg PO DAILY 02/26/21 03/19/22 loratadine 10 mg tablet 10 mg PO DAILY 02/26/21 03/19/22 cholecalciferol (vitamin D3) 50 50 mcg PO DAILY 08/29/21 03/19/22 mcg (2,000 unit) capsule fluticasone propionate 50 1 spray intranasal DAILY 08/29/21 03/19/22 mcg/actuation nasal spray,suspension (Allergy Relief (fluticasone)) furosemide 20 mg tablet 20 mg PO DAILY 08/29/21 03/19/22 latanoprost 0.005 % eye drops 1 drp ophthalmic (eye) DAILY 08/29/21 03/19/22 pravastatin 20 mg tablet 20 mg PO DAILY 08/29/21 03/19/22 Allergies Allergy/AdvReac Type Severity Reaction Status Date / Time whey protein Allergy Unknown Unknown Uncoded 01/31/23 10:27 Review of Systems Review of Systems: Yes all other systems are reviewed and are negative [facility] Past Medical History Surgical History No pertinent past surgical history Family History Family History Father No problems noted. Mother No problems noted. Social History Social History Alcohol intake: never Patient Tobacco Use Status: Never used Tobacco Smoked in Last 30 Days: No Use of substances other than those prescribed or required for medical reasons: No Advance Directives: No Advance Directives Information Provided: Yes Physical Exam ED Vital Signs: Vital Signs - 24 hr 01/31/23 10:28 01/31/23 10:44 01/31/23 12:13 Temperature 98.4 F Pulse Rate 100 82 Respiratory Rate 19 19 Blood Pressure 148/87 H 126/62 Pulse Oximetry 96 98 97 Oxygen Delivery Method Room Air Room Air Room Air BMI result Body Mass Index 46.3 Appearance: Alert. Oriented X3. No acute distress. Head: normocephalic, atraumatic. Eyes: Pupils equal, round and reactive to light. ENT: Pharynx normal. No tonsillar swelling or exudate. Neck: Normal inspection. Neck supple. CVS: Normal heart rate and rhythm. Pulses normal. +Anterior chest wall tenderness throughout Respiratory: No respiratory distress. Breath sounds normal. Abdomen: Obese, Soft and nontender. +BS x4 Skin: Skin warm and dry. Normal skin color. Normal skin turgor. No rashes. Extremities: No lower extremity edema. No joint swelling. No calf tenderness or redness. LUE normal to inspection. pain with passive ROM of the left shoulder, able to fully abduct. normal strength of LUE. mild tenderness of the lateral shoulder Neuro/psych: Oriented X 3. No motor deficit. No sensory deficit. CN II-XII intact. Normal speech and cognition. Medical Decision Making Medical Decision Making [facility] Narrative: 62-year-old female with history of obesity, HTN, HLD, dm, atypical chest pain who presents to the ER for evaluation of chest pain that started yesterday and left shoulder pain that started yesterday while doing laundry. She currently is pain-free. Her chest pain and shoulder pain seem to started different times. Both are worse with range of motion and palpation. Chest pain did not radiate to the left shoulder. She has history of similar episodes in the past. Her EKG today was unremarkable. Her troponin was negative. Her heart score is 3. She has had a negative stress test in the past. Low clinical suspicion for ACS. Low suspicion for PE. At this time comfortable discharge home with plan to follow-up with outpatient Cardiology. Strict return precautions were discussed. Stable for discharge home. Patient agrees with plan Differential Diagnosis Differential Diagnoses: The differential diagnosis associated with the presentation includes costocondritis, muscular pain, atypical chest pain, ACS, PE, myocarditis, pericarditis left shoulder strain, bursitis, tendonitis, rotator cuff injury Admission/Observation Consideration of admission/observation: Escalation of care including admission/observation considered multiple cormobidities w/ chest pain however heart score low and story and exam are not concerning for acs Lab Data [facility] Lab Attestation statement: I reviewed the patient's lab results. Negative troponin 01/31/23 11:26 01/31/23 11:26 Labs: Lab Results 01/31/23 01/31/23 01/31/23 Range/Units 11:26 11:26 11:26 WBC 7.3 (4.8-10.8) X10*3/uL RBC 4.76 (4.20-5.50) X10*6/uL Hgb 12.3 (12.0-16.0) g/dl Hct 39.0 (37.0-47.0) % MCV 81.9 (80.0-98.0) fL MCH 25.8 L (27.0-33.0) pg MCHC 31.5 (31.0-35.0) g/dl RDW 14.7 (11.0-16.0) % Plt Count 204 (160-400) X10*3/uL MPV 9.4 (9.4-12.3) fL Immature Gran % (Auto) 0.3 (0.0-0.4) % Neut % (Auto) 60.8 (45-73) % Lymph % (Auto) 28.1 (20-40) % Humphreys % (Auto) 8.2 (2-11) % Eos % (Auto) 2.2 (0-4) % Baso % (Auto) 0.4 (0-2) % Lymph # (Auto) 2.1 (1.2-4.9) X10*3/uL Humphreys # (Auto) 0.6 (0.1-1.2) X10*3/uL Eos # (Auto) 0.2 (0.0-0.4) X10*3/uL Baso # (Auto) 0.0 (0.0-0.2) X10*3/uL Abs Immat Gran (auto) 0.02 (0.00-0.03) X10*3/uL Absolute Neuts (auto) 4.4 (2.0-8.3) x10*3/uL Absolute Nucleated RBC 0.000 (0.0-0.012) X10*3/uL Nucleated RBC % (auto) 0.0 (0.0-0.2) /100WBC Sodium 137 (135-145) mmol/L Potassium 4.2 (3.3-5.1) mmol/L Chloride 106 (96-108) mmol/L Carbon Dioxide 25 (22-29) mmol/L Anion Gap 10 L (12-20) BUN 13 (9-16) mg/dL Creatinine 0.75 (0.5-1.4) mg/dL Estim Creat Clear Calc 77.0 Estimated GFR > 60 Random Glucose 224 H (60-115) mg/dL Calcium 9.4 (8.4-10.2) mg/dL Total Bilirubin 0.3 (0.0-1.0) mg/dL AST 32 H (5-31) U/L ALT 32 H (0-31) U/L Alkaline Phosphatase 99 (39-117) U/L Troponin I High Sens < 2.7 (<3.5-17.0) ng/L Total Protein 7.6 (6.5-8.0) g/dL Albumin 3.5 (3.5-5.0) g/dL Urine Color Urine Appearance Urine pH (5.0-9.0) Ur Specific [place] (1.005-1.025) Urine Protein (Neg-Trace) mg/dL Urine Glucose (UA) (Negative) mg/dL Urine Ketones (Negative) mg/dL Urine Blood (Negative) Urine Nitrite (Negative) Ur Leukocyte Esterase (Negative) Urine RBC (0-2) /HPF Urine WBC (0-5) /HPF Ur Squamous Epith Cells (0-2) /HPF Urine Bacteria (None Seen) Hyaline Casts (0-2) /LPF 01/31/23 Range/Units 12:15 WBC (4.8-10.8) X10*3/uL RBC (4.20-5.50) X10*6/uL Hgb (12.0-16.0) g/dl Hct (37.0-47.0) % MCV (80.0-98.0) fL MCH (27.0-33.0) pg MCHC (31.0-35.0) g/dl RDW (11.0-16.0) % Plt Count (160-400) X10*3/uL MPV (9.4-12.3) fL Immature Gran % (Auto) (0.0-0.4) % Neut % (Auto) (45-73) % Lymph % (Auto) (20-40) % Humphreys % (Auto) (2-11) % Eos % (Auto) (0-4) % Baso % (Auto) (0-2) % Lymph # (Auto) (1.2-4.9) X10*3/uL Humphreys # (Auto) (0.1-1.2) X10*3/uL Eos # (Auto) (0.0-0.4) X10*3/uL Baso # (Auto) (0.0-0.2) X10*3/uL Abs Immat Gran (auto) (0.00-0.03) X10*3/uL Absolute Neuts (auto) (2.0-8.3) x10*3/uL Absolute Nucleated RBC (0.0-0.012) X10*3/uL Nucleated RBC % (auto) (0.0-0.2) /100WBC Sodium (135-145) mmol/L Potassium (3.3-5.1) mmol/L Chloride (96-108) mmol/L Carbon Dioxide (22-29) mmol/L Anion Gap (12-20) BUN (9-16) mg/dL Creatinine (0.5-1.4) mg/dL Estim Creat Clear Calc Estimated GFR Random Glucose (60-115) mg/dL Calcium (8.4-10.2) mg/dL Total Bilirubin (0.0-1.0) mg/dL AST (5-31) U/L ALT (0-31) U/L Alkaline Phosphatase (39-117) U/L Troponin I High Sens (<3.5-17.0) ng/L Total Protein (6.5-8.0) g/dL Albumin (3.5-5.0) g/dL Urine Color Yellow Urine Appearance Clear Urine pH 6.5 (5.0-9.0) Ur Specific [place] 1.010 (1.005-1.025) Urine Protein Negative (Neg-Trace) mg/dL Urine Glucose (UA) 100 H (Negative) mg/dL Urine Ketones Negative (Negative) mg/dL Urine Blood Negative (Negative) Urine Nitrite Negative (Negative) Ur Leukocyte Esterase Trace H (Negative) Urine RBC 0-2 (0-2) /HPF Urine WBC 0-5 (0-5) /HPF Ur Squamous Epith Cells 0-2 (0-2) /HPF Urine Bacteria None Seen (None Seen) Hyaline Casts 0-2 (0-2) /LPF Independent Interpretation I performed an independent interpretation of an: EKG and Plain X-Ray Interpretation: EKG was sinus tachycardia, ventricular rate 102 beats per minute, normal DC interval, normal QTC, no ST segment elevations or depressions. No change from prior. Chest x-ray with clear lungs, no evidence of focal infiltrate or effusion, agree with radiologist read Radiology Impression Discussion of test interpretation with radiology: I have reviewed the radiologist's reading. Radiologist Impression: EXAMINATION: XR CHEST CLINICAL INFORMATION: Chest pain COMPARISON: Previous chest x-ray May 2018 TECHNIQUE: 2 views of the chest were obtained. FINDINGS: No significant abnormality is noted involving the heart, lungs, mediastinum, bony thorax or soft tissues. Degenerative changes of the spine. XR/XR chest 2V IMPRESSION: No evidence for acute disease in the chest. Independent Historian Clinical information obtained from an independent historian. History obtained from or confirmed by: Other (adult son at bedside) External Record Review External record reviewed: Office record, Outpatient record and Prior outpatient labs Tests considered The following testing was considered but not selected: Considered CTA of the chest however low clinical suspicion for pulmonary embolism Prescription Management I considered prescription management with: Pain Medication Chronic Conditions Patient?s care impacted by: Diabetes, Hypertension and Other (Morbid obesity) Scores Heart Score History: -0- slightly suspicious ECG: -0- normal Age: -1- >45 - <65 Risk factory: -2- 3 or more risk factors or treated atherosclerosis Troponin: -0- < or = normal limit Score: 3 Risk: 1.7% Critical Care Time Critical Care Time Critical Care Time: No Discharge Plan Discharge Clinical Impression: Atypical chest pain Patient Disposition: Home, Self-Care Instructions: Chest Pain (DC) Additional Instructions: Your workup today was unremarkable. Your chest pain is not thought to be cardiac in nature. Is most likely muscular. Recommend rest, anti-inflammatory medications as needed for pain. Recommend following up with Cardiology. If your chest pain returns, changes, or if you develop any new or concerning symptoms call 911 and come back to the ER for re-evaluation Tu trabajo de hoy no fue nada especial. No se kevin que olivares dolor de pecho sea de naturaleza card?concepcion. Es muy probable que sea musculoso. Recomiende reposo, medicamentos antiinflamatorios seg?n sea necesario para el dolor. Se recomienda seguimiento con Cardiolog?a. Si olivares dolor de pecho regresa, cambia o si desarrolla alg?n s?ntoma nuevo o preocupante, llame al 911 y regrese a la canelo de emergencias para brody reevaluaci?n. Prescriptions: No Action fluticasone propionate [Allergy Relief (fluticasone)] 50 mcg/actuation spray,suspension 1 spray intranasal DAILY Rx Instructions: administer into each nostril latanoprost 0.005 % drops 1 drp ophthalmic (eye) DAILY furosemide 20 mg tablet 20 mg PO DAILY cholecalciferol (vitamin D3) 50 mcg (2,000 unit) capsule 50 mcg PO DAILY pravastatin 20 mg tablet 20 mg PO DAILY albuterol sulfate 90 mcg/actuation HFA aerosol inhaler 2 puff PO Q4-6H PRN Trulicity 0.75 mg/0.5 mL pen injector subcut QWEEK aspirin 81 mg tablet,delayed release (DR/EC) 81 mg PO DAILY Lantus Solostar U-100 Insulin 100 unit/mL (3 mL) insulin pen 48 unit subcut BEDTIME insulin aspart U-100 [Novolog FlexPen U-100 Insulin] 100 unit/mL (3 mL) insulin pen subcut cetirizine 10 mg tablet 10 mg PO BEDTIME loratadine 10 mg tablet 10 mg PO DAILY levothyroxine 75 mcg tablet 75 mcg PO DAILY lisinopril 10 mg tablet 10 mg PO DAILY Referrals: [facility] Cardi[facility] Services [Provider Group] (Chest pain) Yashira Bethea MD [Primary Care Provider] - Interventions: ED Discharge Assessment Last Done: 01/31/23 12:36 Discharge Date/Time: 01/31/23 12:36 Print Language: Indonesian
[2023-01-31 12:13] VITALS: BP 126/62; PULSE 82; RESP 19; O2SAT 97
[2023-01-31 12:21] LABS: Appearance Urine Clear; Color Urine Yellow; Glucose Urine UA 100 mg/dL (Negative); Leukocyte Esterase Urine Trace (Negative); Nitrite Urine Negative (Negative); PH 6.5 (5.0-9.0); UMIC TRIGGER UACC YES; Urine Blood Negative (Negative); Urine Ketones Negative (Negative); Urine Protein Negative (Neg-Trace)
[2023-01-31 13:03] LABS: Bacteria Urine None Seen (None Seen); Hyaline Casts Urine 0-2 /LPF (0-2); RBC Urine 0-2 /HPF (0-2); Squamous Epithelial Cell Urine 0-2 /HPF (0-2); WBC Urine 0-5 /HPF (0-5)
== END 2023-01-31 12:36 | disposition home or self-care (01) ==
PROVIDERS: Emergency Provider Emergency Medicine Emergency Medical Services; PCP Family Medicine
DX: R07.89 Other chest pain (principal); M79.602 Pain in left arm; E11.9 Type 2 diabetes mellitus without complications; R00.0 Tachycardia, unspecified; R00.2 Palpitations; Z79.899 Other long term (current) drug therapy; Z79.4 Long term (current) use of insulin
CPT/HCPCS: 36415; 71046; 80053; 81001; 84484; 85025; 93005; 99284

== ENCOUNTER → 2023-01-31 10:20 | Outpatient (BNV) | payer MEDICARE, MEDICAID, SELFPAY | PROVIDERS: Emergency Provider Emergency Medicine Emergency Medical Services; PCP Family Medicine; Visit Provider Internal Medicine Cardiovascular Disease | DX: R07.9 Chest pain, unspecified (principal) | CPT/HCPCS: 93010 ==

== ENCOUNTER 2023-03-22 10:27 | Outpatient (AMB) | payer MEDICARE, MEDICAID, SELFPAY ==
[2023-03-22 10:41] VITALS: BP 102/69; PULSE 92; O2SAT 98; BMI 45.8
--- NOTE | 2023-03-22 10:41 | A.OFFVIS_ITS ---
Intake Vital Signs 03/22/23 10:41 Height 4 ft 9 in Weight 211 lb 10.3 oz BMI 45.8 BP 102/69 Blood Pressure Location Rt brachial Position Sitting Pulse 92 Pulse Source Doppler Pulse Oximetry (%) 98 Oxygen Delivery Method Room Air Intake Visit Reasons: asthma Allergies whey protein Allergy (Unknown, Uncoded 01/31/23 10:27) Unknown HPI asthma HPI Details 62-year-old lady, nonsmoker, with underl noah history of asthma since childhood, now controlled on Flovent and albuterol MDI, previously followed by habilitation worker[facility] in [place], now presents to transfer her care. Patient states she does not have any recent exacerbations and her symptoms have been well controlled. She denies recent pulmonary function or allergy testing. She denies family history of lung disease. Patient does not have any pets. 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 [facility] Surgical History No pertinent past surgical history Family History Father No problems noted. Mother No problems noted. Social History Alcohol intake: never Patient Tobacco Use Status: Never used Tobacco Review of Systems Const Denies daytime sleepiness, Denies excessive sweating, Denies fatigue, Denies fever(s), Denies lethargy, Denies malaise, Denies night sweats, Denies snoring and Denies weight loss Eyes Denies blurry vision and Denies itchy eyes ENT Denies nasal congestion, Denies post nasal drip, Denies sinus pain, Denies sinus pressure and Denies other ( Thrush) Card Denies chest pain, Denies pedal edema, Denies dyspnea, Denies orthopnea and Denies paroxysmal nocturnal dyspnea Resp Denies cough, Denies hemoptysis, Denies excessive phlegm production, Denies dyspnea, Denies snoring and Denies wheezing GI Denies abdominal pain and Denies heartburn Musc Denies myalgias, Denies arthralgias and Denies joint swelling Skin/Breast Denies rash Neuro Denies memory loss and Denies seizure-like activity Psych Denies abnormal sleep pattern, Denies anxiety and Denies memory loss Endo Denies excessive sweating, Denies fatigue and Denies heat intolerance Odilon/Lymph Denies easy bruising Aller/Immun Denies itchy eyes, Denies seasonal rhinorrhea and Denies wheezing Physical Exam Vital Signs: Last Vital Signs Pulse 92 03/22/23 10:41 BP 102/69 03/22/23 10:41 Pulse Ox 98 03/22/23 10:41 Oxygen Delivery Method Room Air 03/22/23 10:41 BMI result Body Mass Index 45.8 Const General: no acute distress and alert Nutritional Appearance: obese Orientation/consciousness: Other orientation findings ( oriented) HEENT Head: Yes atraumatic Eyes General: appearance normal, both eyes and all related structures Sclerae: sclerae normal EOM: EOMs intact bilaterally Neck Neck: Yes supple Lymphatic: no lymphadenopathy noted Resp Effort & Inspection: normal respiratory effort and no use of accessory muscles Auscultation: clear to auscultation bilaterally Cardio Rate: regular rate Rhythm: regular rhythm Heart sounds: no gallops, no murmurs and no rubs Skin General skin exam: other ( warm) Extrem General: No clubbing, No cyanosis and No edema Assessment & Plan Assessment & Plan (1) Asthma: Code(s): J45.909 - Unspecified asthma, uncomplicated Plan: Unclear severity. Will obtain full PFT. Now well controlled on Flovent 110 and albuterol MDI. Continue current regimen. (2) Environmental allergies: Code(s): Z91.09 - Other allergy status, other than to drugs and biological substances Plan: Will obtain IgE level, CBC with differential, and RAST for further evaluation. Orders: Orders Rast Allergen Today Z91.09 - Other allergy status, other than to drugs and biological substances PFT pulmonary function test Today J45.909 - Unspecified asthma, uncomplicated Complete Blood Count Auto Diff Today Z91.09 - Other allergy status, other than to drugs and biological substances Coding Level of Care Code New Pt Level 4 (94129) Diagnoses Asthma J45.909 Environmental allergies Z91.09
== END 2023-03-22 11:09 | disposition home or self-care (01) ==
PROVIDERS: PCP Family Medicine; Referring Provider Family Medicine; Visit Provider Internal Medicine Pulmonary Disease
DX: J45.909 Unspecified asthma, uncomplicated (principal); Z91.09 Other allergy status, other than to drugs and biological substances
CPT/HCPCS: 99204

== ENCOUNTER → 2023-03-22 10:27 | Outpatient (BNVA) | payer MEDICARE, MEDICAID, SELFPAY | PROVIDERS: PCP Family Medicine; Visit Provider Internal Medicine Pulmonary Disease ==

== ENCOUNTER 2023-04-16 07:08 | Outpatient (REF) | payer MEDICARE, MEDICAID, SELFPAY ==
--- NOTE | 2023-04-16 09:11 | PFT_ITS ---
INDICATION: Asthma. SPIROMETRY: FEV1 to FVC of 80% with an FEV1 of 1.85 L, which is 102% predicted and an FVC of 2.33 L, which is 107% predicted. No significant change after bronchodilators is administered. Maximum voluntary ventilation 85% predicted. LUNG VOLUMES: The patient had difficulty performing the maneuver, and therefore, could not be measured. DIFFUSION CAPACITY: DLCO of 94% predicted. COMPARISONS: None. INTERPRETATION: No obstructive ventilatory defects. No significant response to bronchodilators noted. To note, the FEF 25-75 decreased down to 23% predicted and then improved to 146% predicted after bronchodilators were administered, suggesting small airway disease, which could be related to underlying asthma. Again, lung volumes cannot be measured. Diffusion capacity is within normal limits. Clinical correlation warranted. Zaheer Walton MD MR/MODL / [id number]
== END 2023-04-16 07:09 | disposition home or self-care (01) ==
LOC: HO.RESP 07:08
PROVIDERS: PCP Family Medicine; Visit Provider Internal Medicine Pulmonary Disease
DX: J45.909 Unspecified asthma, uncomplicated (principal)
CPT/HCPCS: 94010; 94727; 94729

== ENCOUNTER → 2023-04-16 09:11 | Outpatient (BNV) | payer MEDICARE, MEDICAID, SELFPAY | PROVIDERS: PCP Family Medicine; Visit Provider Hospitalist | DX: J45.909 Unspecified asthma, uncomplicated (principal) | CPT/HCPCS: 94060; 94727 ==

== ENCOUNTER 2023-04-19 07:24 | Outpatient (REF) | payer MEDICARE, MEDICAID, SELFPAY ==
[2023-04-19 07:35] LABS: MANUAL DIFF FLAG NO
[2023-04-19 08:40] LABS: Basophils Absolute Auto 0.1 X10*3/uL (0.0-0.2); Basophils Percent Auto 0.7 % (0-2); Eosinophils Absolute Auto 0.2 X10*3/uL (0.0-0.4); Eosinophils Percent Auto 2.3 % (0-4); Hematocrit 39.3 % (37.0-47.0); Hemoglobin 12.3 g/dl (12.0-16.0); Imm Gran Abs Auto 0.04 X10*3/uL (0.00-0.03); Imm Gran Pct Auto 0.4 % (0.0-0.4); Lymphocytes Absolute Auto 2.9 X10*3/uL (1.2-4.9); Lymphocytes Percent Auto 27.9 % (20-40); Mean Corpuscular HGB Conc 31.3 g/dl (31.0-35.0); Mean Corpuscular Hemoglobin 25.9 pg (27.0-33.0); Mean Corpuscular Volume 82.7 fL (80.0-98.0); Mean Platelet Volume 9.6 fL (9.4-12.3); Monocytes Absolute Auto 0.9 X10*3/uL (0.1-1.2); Monocytes Percent Auto 8.5 % (2-11); Neutrophils Absolute Auto 6.3 x10*3/uL (2.0-8.3); Neutrophils Percent Auto 60.2 % (45-73); Platelet Count 235 X10*3/uL (160-400); Red Blood Count 4.75 X10*6/uL (4.20-5.50); Red Cell Distribution Width 14.9 % (11.0-16.0); White Blood Count 10.5 X10*3/uL (4.8-10.8)
== END 2023-04-19 07:25 | disposition home or self-care (01) ==
LOC: HO.LAB 07:24
PROVIDERS: PCP Family Medicine; Visit Provider Internal Medicine Pulmonary Disease
DX: Z91.09 Other allergy status, other than to drugs and biological substances (principal)
CPT/HCPCS: 36415; 82785; 85025; 86003

== ENCOUNTER 2023-04-23 09:20 | Outpatient (AMB) | payer MEDICARE, MEDICAID, SELFPAY ==
[2023-04-23 09:35] VITALS: BP 120/82; PULSE 98; BMI 46.2
--- NOTE | 2023-04-23 09:35 | A.OFFVIS_ITS ---
Intake Vital Signs 04/23/23 09:35 Height 4 ft 9 in Weight 213 lb 6.519 oz BMI 46.2 BP 120/82 Blood Pressure Location Lt brachial Position Sitting Pulse 98 Intake Visit Reasons: 1 year follow up [employer] Compliance Manager Required: No Allergies whey protein Allergy (Unknown, Uncoded 01/31/23 10:27) Unknown Medication List - Last Reconciled 04/23/23 by Lucia Mendoza, [employer] LOSS PREVENTION MANAGER-C albuterol sulfate 90 mcg/actuation 2 puffs PO Q4-6H PRN aspirin 81 mg PO DAILY cetirizine 10 mg PO BEDTIME cholecalciferol (vitamin D3) 50 mcg PO DAILY dulaglutide (Trulicity) mg subcut QWEEK fluticasone propionate 50 mcg/actuation (Allergy Relief (fluticasone)) 1 spray intranasal DAILY fluticasone propionate 110 mcg/actuation (Flovent HFA) 2 puffs inhalation BID insulin aspart U-100 (Novolog FlexPen U-100 Insulin aspart) subcut insulin glargine (Lantus Solostar U-100 Insulin) 48 units subcut BEDTIME levothyroxine 75 mcg PO DAILY lisinopril 10 mg PO DAILY loratadine 10 mg PO DAILY pravastatin 20 mg PO DAILY HPI 1 year follow up HPI Details Aaron is a 62-year-old female with past medical history of morbid obesity, hyperlipidemia and prior reports of chest discomfort who presents for cardiology follow-up. Today she reports that she has been doing well since her last visit 03/19/2022. She has not been having any concerning chest discomfort. No chest discomfort at rest or with activity. No shortness of breath, palpitations, presyncope, syncope, PND, orthopnea or edema. She reports good activity tolerance. is present and assisting with Welsh translation at their request, permit signed. [facility] Medical History (Updated 04/23/23 @ 10:24 by ROCIO Lutz) Asthma Atypical chest pain Surgical History No pertinent past surgical history Family History Father No problems noted. Mother No problems noted. Social History Alcohol intake: never Patient Tobacco Use Status: Never used Tobacco Review of Systems Const All systems reviewed & are unremarkable except as noted in HPI and below ENT Denies dizziness Card Denies chest pain, Denies chest pain at rest, Denies chest pain with activity, Denies rapid heart rate, Denies pedal edema, Denies edema, Denies leg edema, Denies lightheadedness, Denies palpitations, Denies dyspnea, Reports dyspnea on exertion and Denies orthopnea Resp Denies cough, Denies dyspnea and Reports dyspnea on exertion GI Denies hematochezia and Denies change in stool character Musc Denies abnormal gait, Denies limited range of motion, Denies muscle cramps, Denies muscle weakness, Denies numbness, Denies radiating pain into limb, Denies stiffness and Denies tingling Neuro Denies abnormal gait, Denies dizziness, Denies numbness and Denies tingling Endo Denies palpitations Physical Exam Vital Signs: Last Vital Signs Pulse 98 04/23/23 09:35 BP 120/82 04/23/23 09:35 BMI result Body Mass Index 46.2 Const Other: Morbid obesity General: cooperative, comfortable and no acute distress Neck Neck: Yes normal visual inspection and Yes no JVD Resp Effort & Inspection: normal respiratory effort Auscultation: clear to auscultation bilaterally, no crackles, no rales, no rhonchi and no wheezes Cardio Rate: regular rate Rhythm: regular rhythm Heart sounds: S1 normal heart sound present, S2 normal heart sound present, no gallops, no murmurs and no rubs Extrem General: Yes normal to inspection Psych Appearance: grossly normal Mental Status: mental status grossly normal Speech and movement: Normal speech and movement present Office Procedures EKG Details: Today reviewed by me, normal sinus rhythm, septal Q-wave, seen on prior EKG, could be related to body habitus, rate 98 [id number], Complete Assessment & Plan Assessment & Plan (1) Atypical chest pain: Code(s): R07.89 - Other chest pain Plan: Prior reports of chest discomfort. Nuclear stress test done 12/31/20 showed no defiinite infarct or ischemia. EKG 02/26/21 showed SR, no acute ST/ T wave abn 87. She has no known CAD. Cardiac risks of obesity, HLD. Today reports she has been doing well with no anginal symptoms. EKG today again shows SR, no acute ST/ T wave abn, septal Q-wave which has been present on prior EKGs, rate 98. She would like to continue to follow with cardiology. Signs and symptoms of angina r eviewed with her. Cardiac risk factor modifications reviewed. Benefits of weight loss discussed. Will arrange for 1 yr follow up. (2) Hyperlipidemia: Code(s): E78.5 - Hyperlipidemia, unspecified Plan: Wallace LDL goal < 100. No recent Lipid profile in our system. Last known LDL 72 from 12/16/19. She is on Pravastatin. Labs are followed by PCP. Coding Level of Care Code Est Pt Level 3 (71298) Diagnoses Atypical chest pain R07.89 Hyperlipidemia E78.5 CPT Codes EKG - CPT: 86691-[id number], Complete ([id number]) Time Spent (min) 20
== END 2023-04-23 10:05 | disposition home or self-care (01) ==
PROVIDERS: PCP Family Medicine; Visit Provider Nurse Practitioner Family
DX: R07.89 Other chest pain (principal); E78.5 Hyperlipidemia, unspecified
CPT/HCPCS: 93010; 99213

== ENCOUNTER → 2023-04-23 09:20 | Outpatient (BNVA) | payer MEDICARE, MEDICAID, SELFPAY | PROVIDERS: PCP Family Medicine; Visit Provider Nurse Practitioner Family | DX: R07.89 Other chest pain (principal); E78.5 Hyperlipidemia, unspecified | CPT/HCPCS: 93005; 99212 ==

== ENCOUNTER 2023-04-26 10:27 | Outpatient (REF) | payer MEDICARE, MEDICAID, SELFPAY ==
[2023-04-26 12:17] LABS: Cortisol Random 7.4 ug/dL
[2023-04-26 12:19] LABS: Alanine Aminotransferase 33 U/L (0-31); Albumin Level 3.7 g/dL (3.5-5.0); Alkaline Phosphatase 118 U/L (39-117); Aspartate Amino Transferase 42 U/L (5-31); Bilirubin Direct 0.2 mg/dL (0.0-0.5); Bilirubin Total 0.4 mg/dL (0.0-1.0); Cholesterol 133 mg/dL (<200); HDL Cholesterol 48 mg/dL (>40); LDL Cholesterol Calculated 61 mg/dL (<100); Triglycerides 120 mg/dL (<150)
[2023-04-26 14:10] LABS: Creatinine Urine 228.76 mg/dL; Microalbum/Creatinine Ratio Ur 21.4 ug/mg cr (<30)
== END 2023-04-26 10:28 | disposition home or self-care (01) ==
LOC: HO.HHCL 10:27
PROVIDERS: Visit Provider Family Medicine
DX: R74.01 Elevation of levels of liver transaminase levels (principal); E78.5 Hyperlipidemia, unspecified; E03.9 Hypothyroidism, unspecified; E11.9 Type 2 diabetes mellitus without complications; R68.89 Other general symptoms and signs; Z79.4 Long term (current) use of insulin
CPT/HCPCS: 36415; 80061; 80076; 82043; 82533; 82570; 84443

== ENCOUNTER 2023-04-28 08:20 | Outpatient (REF) | payer MEDICARE, MEDICAID, SELFPAY ==
[2023-05-04 21:48] LABS: Adrenocorticotropic Hormone 14 pg/mL (6-50)
== END 2023-04-28 08:21 | disposition home or self-care (01) ==
LOC: HO.LAB 08:20
PROVIDERS: PCP Family Medicine; Visit Provider Family Medicine
DX: R68.89 Other general symptoms and signs (principal)
CPT/HCPCS: 36415; 82024

== ENCOUNTER 2023-07-30 12:09 | Outpatient (REF) | payer MEDICARE, MEDICAID, SELFPAY | END 2023-07-30 12:10 | disposition home or self-care (01) | LOC: HO.MAMMO 12:09 | PROVIDERS: PCP Family Medicine; Visit Provider Family Medicine | DX: Z12.31 Encounter for screening mammogram for malignant neoplasm of breast (principal) | CPT/HCPCS: 77063; 77067 ==

== ENCOUNTER → 2023-07-30 12:30 | Outpatient (BNV) | payer MEDICARE, MEDICAID, SELFPAY | PROVIDERS: PCP Family Medicine; Visit Provider Radiology Diagnostic Radiology | DX: Z12.31 Encounter for screening mammogram for malignant neoplasm of breast (principal) | CPT/HCPCS: 77063; 77067 ==

== ENCOUNTER 2023-10-11 10:20 | Emergency (ER) | payer MEDICARE, MEDICAID, SELFPAY ==
--- NOTE | ~2023-10-11 | US_ITS ---
EXAMINATION: US ABDOMEN LIMITED CLINICAL INFORMATION: Right upper quadrant tenderness, history of cholecystectomy. COMPARISON: Abdominal ultrasound 11/24/2013. TECHNIQUE: Real-time imaging of the right upper quadrant abdominal viscera. FINDINGS: PANCREAS: Normal. LIVER: Normal. The liver is normal in size. The liver contour is normal. Parenchymal echogenicity is normal. No focal hepatic lesion. There is no intrahepatic biliary duct dilatation seen. GALLBLADDER: Cholecystectomy. COMMON BILE DUCT: Dilated measuring 0.9 cm in diameter. RIGHT KIDNEY: Normal. No hydronephrosis. No renal calculi or focal parenchymal lesions. The kidney measures 11 cm in maximum dimension. FREE FLUID: None. US/US abdomen limited IMPRESSION: Status post cholecystectomy with dilatation of the common bile duct which is nonspecific and could be related with patient's age and postcholecystectomy state. However, if there is clinical concern for biliary obstruction, correlation with MRCP could be obtained.
[2023-10-11 10:28] VITALS: BP 153/77; PULSE 82; RESP 18; TEMP 36.6; O2SAT 95; BMI 46.0
[2023-10-11 11:45] LABS: MANUAL DIFF FLAG NO
[2023-10-11 11:46] LABS: Basophils Percent Auto 0.4 % (0-2); Eosinophils Absolute Auto 0.2 X10*3/uL (0.0-0.4); Eosinophils Percent Auto 1.7 % (0-4); Hematocrit 40.1 % (37.0-47.0); Hemoglobin 12.6 g/dl (12.0-16.0); Imm Gran Abs Auto 0.02 X10*3/uL (0.00-0.03); Imm Gran Pct Auto 0.2 % (0.0-0.4); Lymphocytes Absolute Auto 2.4 X10*3/uL (1.2-4.9); Lymphocytes Percent Auto 26.2 % (20-40); Mean Corpuscular HGB Conc 31.4 g/dl (31.0-35.0); Mean Corpuscular Hemoglobin 25.7 pg (27.0-33.0); Mean Corpuscular Volume 81.8 fL (80.0-98.0); Mean Platelet Volume 9.2 fL (9.4-12.3); Monocytes Absolute Auto 0.7 X10*3/uL (0.1-1.2); Neutrophils Absolute Auto 5.7 x10*3/uL (2.0-8.3); Neutrophils Percent Auto 63.5 % (45-73); Platelet Count 218 X10*3/uL (160-400); Red Cell Distribution Width 14.8 % (11.0-16.0)
[2023-10-11 11:48] LABS: Appearance Urine Clear; Color Urine Yellow; Glucose Urine UA 250 mg/dL (Negative); Leukocyte Esterase Urine Trace (Negative); Nitrite Urine Negative (Negative); UMIC TRIGGER UACC YES; Urine Blood Negative (Negative); Urine Ketones Negative (Negative); Urine Protein Negative (Neg-Trace)
[2023-10-11 11:55] LABS: Bacteria Urine None Seen (None Seen); Hyaline Casts Urine 0-2 /LPF (0-2); RBC Urine 0-2 /HPF (0-2); Squamous Epithelial Cell Urine 0-2 /HPF (0-2); WBC Urine 0-5 /HPF (0-5)
[2023-10-11 12:03] LABS: Alanine Aminotransferase 34 U/L (0-31); Albumin Level 3.9 g/dL (3.5-5.0); Alkaline Phosphatase 121 U/L (39-117); Anion Gap 9 (12-20); Aspartate Amino Transferase 47 U/L (5-31); Bilirubin Total 0.4 mg/dL (0.0-1.0); Blood Urea Nitrogen 14 mg/dL (9-16); Calcium 9.5 mg/dL (8.4-10.2); Carbon Dioxide 28 mmol/L (22-29); Chloride 105 mmol/L (96-108); Creatinine Clr Calc Pharmacy 88.4; Estimated Glomerular Filt Rate > 60; Glucose Random 207 mg/dL (60-115); Potassium 4.2 mmol/L (3.3-5.1); Sodium 138 mmol/L (135-145); Total Protein 8.3 g/dL (6.5-8.0)
--- NOTE | 2023-10-11 17:16 | ED.GENADULT ---
HPI - General Adult General Chief complaint: Abdominal Pain Stated complaint: abd and back pain Time Seen by Provider: 10/11/23 17:16 Source: patient, family and editorial assistant Mode of arrival: ambulatory Limitations: language barrier History of Present Illness HPI narrative: Patient is a 62-year-old Croatian-speaking female with history of cholecystectomy, asthma, T2DM, HTN, hypothyroidism, hyperlipidemia, obesity presenting to the emergency department with complaint of right upper back pain radiating around to right upper quadrant of abdomen since yesterday afternoon. States that she took Tylenol and went to bed but pain has persisted. She denies any nausea, vomiting, diarrhea, constipation. She reports urinary frequency but states this is her baseline. Denies any dysuria or hematuria. Reports feeling warm last night but did not check her temperature with a thermometer. Denies any recent fall or other trauma. MD complaint: back and abdominal pain Onset (ago): hour(s) Location: back Radiation: abdomen Severity: severe Quality: aching Pain Consistency: constant Relieving factors: none Exacerbating factors: movement Associated symptoms: denies other symptoms Treatments prior to arrival: other (Tylenol) Related Data Home Medications ?Medication ?Instructions ?Recorded ?Confirmed albuterol sulfate 90 mcg/actuation 2 puff PO Q4-6H PRN 02/26/21 04/23/23 aerosol inhaler aspirin 81 mg tablet,delayed 81 mg PO DAILY 02/26/21 04/23/23 release cetirizine 10 mg tablet 10 mg PO BEDTIME 02/26/21 04/23/23 dulaglutide 0.75 mg/0.5 mL mg subcut QWEEK 02/26/21 04/23/23 subcutaneous pen injector (Trulicity) insulin aspart U-100 100 unit/mL subcut 02/26/21 04/23/23 (3 mL) subcutaneous pen (Novolog FlexPen U-100 Insulin aspart) insulin glargine 100 unit/mL (3 48 unit subcut BEDTIME 02/26/21 04/23/23 mL) subcutaneous pen (Lantus Solostar U-100 Insulin) levothyroxine 75 mcg tablet 75 mcg PO DAILY 02/26/21 04/23/23 lisinopril 10 mg tablet 10 mg PO DAILY 02/26/21 04/23/23 loratadine 10 mg tablet 10 mg PO DAILY 02/26/21 04/23/23 cholecalciferol (vitamin D3) 50 50 mcg PO DAILY 08/29/21 04/23/23 mcg (2,000 unit) capsule fluticasone propionate 50 1 spray intranasal DAILY 08/29/21 04/23/23 mcg/actuation nasal spray,suspension (Allergy Relief (fluticasone)) pravastatin 20 mg tablet 20 mg PO DAILY 08/29/21 04/23/23 fluticasone propionate 110 2 puff inhalation BID 03/22/23 04/23/23 mcg/actuation HFA aerosol inhaler (Flovent HFA) Previous Rx's ?Medication ?Instructions ?Recorded cyclobenzaprine 5 mg tablet 5 mg PO TID PRN muscle spasm #10 10/11/23 tabs lidocaine 5 % topical patch 1 patch topical DAILY #15 ea 10/11/23 Allergies Allergy/AdvReac Type Severity Reaction Status Date / Time No Known Allergies Allergy Verified 10/11/23 10:31 Review of Systems Review of Systems: As per HPI. Yes all other systems are reviewed and are negative Constitutional: Constitutional: Reports as per HPI [facility] Past Medical History Medical History (Updated 10/11/23 @ 22:04 by Meri Colin NP) Asthma Atypical chest pain Surgical History No pertinent past surgical history Family History Family History Father No problems noted. Mother No problems noted. Social History Social History Alcohol intake: never Patient Tobacco Use Status: Never used Tobacco Smoked in Last 30 Days: No Use of substances other than those prescribed or required for medical reasons: No Advance Directives: No Advance Directives Information Provided: No Patient : No Physical Exam ED Vital Signs: Vital Signs - 24 hr 10/11/23 10:28 10/11/23 19:02 10/11/23 21:35 Temperature 97.9 F 98.6 F 97.9 F Pulse Rate 82 78 92 Respiratory Rate 18 18 20 Blood Pressure 153/77 H 132/63 144/83 H Pulse Oximetry 95 98 99 Oxygen Delivery Method Room Air Room Air Room Air BMI result Body Mass Index 46.0 Vital signs have been reviewed and appear to be correct. Blood pressure elevated. Heart rate normal. Respiratory rate normal. Temperature normal. Oxygen saturation normal. Const General: cooperative and no acute distress Nutritional Appearance: obese Orientation/consciousness: oriented to person, oriented to place, oriented to time and patient oriented x3 Limitations: no limitations [facility] Head: Yes normocephalic and Yes atraumatic Ears: external ears normal General nose exam: Normal external nose present Face and sinus: Yes face symmetric Mouth: oropharynx normal and moist mucous membranes Throat: Yes uvula midline Eyes Pupils: Equal, round and reactive pupils present Neck Neck: Yes normal visual inspection and Yes supple Chest Chest palpation & inspection: tenderness rib right mid-axillary line involving the 7th rib, involving the 8th rib and involving the 9th rib Resp Effort & Inspection: normal respiratory effort and able to speak in complete sentences Auscultation: clear to auscultation bilaterally Cardio Rate: regular rate Rhythm: regular rhythm Heart sounds: S1 normal heart sound present and S2 normal heart sound present GI Palpation (GI): Soft to palpation and Tenderness to palpation present (GI) in the RUQ (mild); Mitchell's sign negative and with no rebound tenderness Auscultation: normoactive bowel sounds General: Yes no CVA tenderness Back/Spine/Pelvis Back: no CVA tenderness Thoracic/Lumbar Spine: thoracic and lumbar spine normal to inspection, thoraco-lumbar ROM normal, pain with thoraco-lumbar ROM, paraspinal muscle tenderness on the right in the mid thoracic, No thoracic spinal tenderness and No lumbar spinal tenderness Skin General skin exam: elasticity normal and turgor normal Neuro General: oriented to person, oriented to place, oriented to time, patient oriented x3, moves all extremities, no focal motor deficits and CN's II-XI intact bilaterally Cranial nerves: Yes Equal, round and reactive pupils present Cognition (Neuro): normal cognition Extrem General: Yes full ROM, Yes no pedal edema and Yes no calf tenderness Psych Mental Status: mental status grossly normal Affect: normal affect Thought process: Normal thought process present Medications Administered Discontinued Medications Generic Name Dose Route Start Last Admin Trade Name Freq PRN Reason Stop Dose Admin Ketorolac Tromethamine 15 mg 10/11/23 17:29 10/11/23 18:21 Ketorolac Tromethamine 15 Mg/Ml Vial IVPUSH 10/11/23 17:30 15 mg ONCE ONE Administration Medical Decision Making Medical Decision Making [facility] Narrative: Patient is a 62-year-old Croatian-speaking female with history of cholecystectomy, asthma, T2DM, HTN, hypothyroidism, hyperlipidemia, obesity presenting to the emergency department with complaint of right upper back pain radiating around to right upper quadrant of abdomen since yesterday afternoon. On exam patient is awake, A+Ox3, BP elevated, VS oherwise WNL, afebrile, normal neurological exam without focal deficits, physical exam findings as above. Given reported symptoms and physical exam findings, initial differential includes ductal stone, musculoskeletal pain, UTI/pyelonephritis, renal/ureteral calculi. Labs notable for no leukocytosis, no anemia, no evidence of SHANKAR, mildly elevated LFTs which appears chronic, T bili normal. Urinalysis notable for trace leukocytes and elevated glucose, do not suspect infection. Ultrasound notable for dilation of CBD. My interpretation is in agreement with the radiologist's interpretation. Patient reports full resolution of pain after ketorolac. Feel symptoms are due to musculoskeletal strain. Case discussed with Dr. Barth who is in agreement with this. Will discharge patient home with prescriptions for cyclobenzaprine and lidocaine patches, advised patient to alternate Tylenol and ibuprofen as well. Instructed patient to follow-up with her primary care provider. Return precautions discussed at bedside. Patient verbalized understanding of and agreement with plan. All results, plan and return precautions discussed via labor relations teacher. Differential Diagnosis Differential Diagnoses: The differential diagnosis associated with the presentation includes As per [facility] Admission/Observation Consideration of admission/observation: Escalation of care including admission/observation considered Patient would have been admitted to the hospital had their work up had any findings where hospital admission was appropriate and their clinical presentation warranted hospital admission. Lab Data [facility] Lab Attestation statement: I reviewed the patient's lab results. As per [facility] 10/11/23 11:34 10/11/23 11:34 Labs: Lab Results 10/11/23 Range/Units 11:34 WBC 9.0 (4.8-10.8) X10*3/uL RBC 4.90 (4.20-5.50) X10*6/uL Hgb 12.6 (12.0-16.0) g/dl Hct 40.1 (37.0-47.0) % MCV 81.8 (80.0-98.0) fL MCH 25.7 L (27.0-33.0) pg MCHC 31.4 (31.0-35.0) g/dl RDW 14.8 (11.0-16.0) % Plt Count 218 (160-400) X10*3/uL MPV 9.2 L (9.4-12.3) fL Immature Gran % (Auto) 0.2 (0.0-0.4) % Neut % (Auto) 63.5 (45-73) % Lymph % (Auto) 26.2 (20-40) % Gregory % (Auto) 8.0 (2-11) % Eos % (Auto) 1.7 (0-4) % Baso % (Auto) 0.4 (0-2) % Lymph # (Auto) 2.4 (1.2-4.9) X10*3/uL Gregory # (Auto) 0.7 (0.1-1.2) X10*3/uL Eos # (Auto) 0.2 (0.0-0.4) X10*3/uL Baso # (Auto) 0.0 (0.0-0.2) X10*3/uL Abs Immat Gran (auto) 0.02 (0.00-0.03) X10*3/uL Absolute Neuts (auto) 5.7 (2.0-8.3) x10*3/uL Absolute Nucleated RBC 0.000 (0.0-0.012) X10*3/uL Nucleated RBC % (auto) 0.0 (0.0-0.2) /100WBC Sodium 138 (135-145) mmol/L Potassium 4.2 (3.3-5.1) mmol/L Chloride 105 (96-108) mmol/L Carbon Dioxide 28 (22-29) mmol/L Anion Gap 9 L (12-20) BUN 14 (9-16) mg/dL Creatinine 0.68 (0.5-1.4) mg/dL Estim Creat Clear Calc 88.4 Estimated GFR > 60 Random Glucose 207 H (60-115) mg/dL Calcium 9.5 (8.4-10.2) mg/dL Total Bilirubin 0.4 (0.0-1.0) mg/dL AST 47 H (5-31) U/L ALT 34 H (0-31) U/L Alkaline Phosphatase 121 H (39-117) U/L Total Protein 8.3 H (6.5-8.0) g/dL Albumin 3.9 (3.5-5.0) g/dL Urine Color Yellow Urine Appearance Clear Urine pH 6.0 (5.0-9.0) Ur Specific Sondheimer 1.020 (1.005-1.025) Urine Protein Negative (Neg-Trace) mg/dL Urine Glucose (UA) 250 H (Negative) mg/dL Urine Ketones Negative (Negative) mg/dL Urine Blood Negative (Negative) Urine Nitrite Negative (Negative) Ur Leukocyte Esterase Trace H (Negative) Urine RBC 0-2 (0-2) /HPF Urine WBC 0-5 (0-5) /HPF Ur Squamous Epith Cells 0-2 (0-2) /HPF Urine Bacteria None Seen (None Seen) Hyaline Casts 0-2 (0-2) /LPF Independent Interpretation I performed an independent interpretation of an: CT Scan Interpretation: RUQ U/S shows dilation of CBD Radiology Impression Discussion of test interpretation with radiology: I have reviewed the radiologist's reading. Radiologist Impression: US/US abdomen limited IMPRESSION: Status post cholecystectomy with dilatation of the common bile duct which is nonspecific and could be related with patient's age and postcholecystectomy state. However, if there is clinical concern for biliary obstruction, correlation with MRCP could be obtained. External Record Review External record reviewed: Inpatient record, Office record and Outpatient record Prescription Management I considered prescription management with: Pain Medication and Other Discharge Plan Discharge Clinical Impression: Strain of mid-back Qualifiers: Encounter type: initial encounter Qualified Code(s): S29.012A - Strain of muscle and tendon of back wall of thorax, initial encounter Patient Disposition: Home, Self-Care Instructions: Thoracic Back Strain (ED) Additional Instructions: You were evaluated in the emergency department today for back pain. Your evaluation did not show signs of medical conditions requiring emergent intervention at this time. We recommended that you use ibuprofen or Tylenol per package directions every 6 hours as needed for pain. If necessary, you can alternate these medications so that you take one medication every 3 hours. For instance, at noon take ibuprofen, then at 3:00 p.m. take Tylenol, then at 6:00 p.m. take ibuprofen. You have been prescribed a muscle relaxer which you may take every 8 hours as needed for spasms. You have been prescribed 5% topical lidocaine patches which you can wear for up to 12 hours in a 24 hour period. Do not apply heat directly over the patches. Please schedule an appointment for follow-up with your primary care physician this week for further evaluation of your symptoms. Return to the emergency department if you experience worsening back pain, difficulty walking, fevers, numbness, tingling, incontinence, groin numbness or tingling, or any other concerning symptoms. Prescriptions: New cyclobenzaprine 5 mg tablet 5 mg PO TID PRN (Reason: muscle spasm) Qty: 10 0RF lidocaine 5 % adhesive patch,medicated 1 patch topical DAILY Qty: 15 0RF Rx Instructions: leave on most painful area for up to 12 hrs No Action fluticasone propionate [Allergy Relief (fluticasone)] 50 mcg/actuation spray,suspension 1 spray intranasal DAILY Rx Instructions: administer into each nostril cholecalciferol (vitamin D3) 50 mcg (2,000 unit) capsule 50 mcg PO DAILY pravastatin 20 mg tablet 20 mg PO DAILY albuterol sulfate 90 mcg/actuation HFA aerosol inhaler 2 puff PO Q4-6H PRN Trulicity 0.75 mg/0.5 mL pen injector subcut QWEEK aspirin 81 mg tablet,delayed release (DR/EC) 81 mg PO DAILY Lantus Solostar U-100 Insulin 100 unit/mL (3 mL) insulin pen 48 unit subcut BEDTIME insulin aspart U-100 [Novolog FlexPen U-100 Insulin] 100 unit/mL (3 mL) insulin pen subcut cetirizine 10 mg tablet 10 mg PO BEDTIME loratadine 10 mg tablet 10 mg PO DAILY levothyroxine 75 mcg tablet 75 mcg PO DAILY lisinopril 10 mg tablet 10 mg PO DAILY fluticasone propionate [Flovent HFA] 110 mcg/actuation HFA aerosol inhaler 2 puff inhalation BID Print Language: Croatian
[2023-10-11] MEDS: Ketorolac Tromethamine 15 MG/ML VIAL IVPUSH (18:21)
[2023-10-11 19:02] VITALS: BP 132/63; PULSE 78; RESP 18; TEMP 37; O2SAT 98
--- NOTE | 2023-10-11 19:15 | PC.NURSE ---
Assumed care of pt. pt lying on stretcher, no complaints at this time. Pt states no pain without movement, however when she slid up in bed, endorsed mild R lower back pain with movement. Resolved when she stopped moving. pt ambulating with steady og to bathroom. pending US read for dispo.
[2023-10-11 21:35] VITALS: BP 144/83; PULSE 92; RESP 20; TEMP 36.6; O2SAT 99
[2023-10-11 22:18] VITALS: BP 148/88; PULSE 78; RESP 18; TEMP 36.6; O2SAT 98
== END 2023-10-11 22:20 | disposition home or self-care (01) ==
PROVIDERS: Emergency Provider Internal Medicine
DX: S29.012A Strain of muscle and tendon of back wall of thorax, initial encounter (principal); E11.9 Type 2 diabetes mellitus without complications; I10 Essential (primary) hypertension; X58.XXXA Exposure to other specified factors, initial encounter; Y93.9 Activity, unspecified; Y92.9 Unspecified place or not applicable; Y99.9 Unspecified external cause status; Z90.49 Acquired absence of other specified parts of digestive tract
CPT/HCPCS: 36415; 76705; 80053; 81001; 85025; 96374; 99284; J1885

== ENCOUNTER 2023-10-18 12:04 | Outpatient (REF) | payer MEDICARE, MEDICAID, SELFPAY ==
--- NOTE | 2023-10-18 12:47 | MHC.AU.HA3 ---
Hearing Instrument Follow-Up- Binaural Date of Visit: 10/18/23 Right Ear: Jero, Model, Color, Serial Number: Nate Paredes P 70-R Juan Carvalho, Serial #[id number] [employer] Warranty: 02/17/2025 [employer] Loss [employer] Damage Warranty: 02/17/2025 [facility] Service Plan: 12/04/2022 Battery Size: Rechargeable Central Processing Tech/Slim Tube: 0M Earmold/Dome/CShell/SlimTip:Small power dome Type of Wax Guard: CeruShield Dispensed By: [facility] Date of Fittin12/04/2021 Left Ear: Jero, , Color, Serial Number: Nate Paredes P 70-R Juan Carvalho Serial # [id number] [employer] Warranty: 02/17/2025 [employer] Loss and Damage Warranty: 02/17/2025 [facility] Service Plan: 12/04/2022 Battery Size: Rechargeable Central Processing Tech/Slim Tube: 0M Earmold/Dome/CShell/SlimTip: Small power dome Type of Wax Guard: CeruShield Dispensed By: [facility] Date of Fittin12/04/2021 Follow-Up Summary: Aids and compressor operator portable dropped off. Report aids not lasting, left worse. Found both aids completely occluded with wax, had to replace receivers. Mics blocked as well. Cleaned aids, replaced receivers, replaced domes. Listening check positive. Checked settings. Both batteries shown to have high charge upon arrival today with relatively even battery %. Firmware update performed. Charging normal in our compressor operator portable. Will have patient picker tender helper aids incase this was an amplification problem due to wax rather than a true charging problem. Recommendations: Recommendations: Hearing instrument follow-up or maintenance as needed. Patient will call if problems persist. Recommendations (Other): Bring aids back in to be sent to hospice home health aide if still having a battery life problem. Diagnosis Code(s): Primary Diagnosis: H90.3 Bilateral Sensorineural Hearing Loss Signature: Provider: Nikolay Monae, CCC-A
== END 2023-10-18 12:05 | disposition home or self-care (01) ==
LOC: HO.HAP 12:04
PROVIDERS: Visit Provider Family Medicine
DX: Z13.89 Encounter for screening for other disorder (principal)

== ENCOUNTER 2023-10-19 12:19 | Outpatient (REF) | payer MEDICARE, MEDICAID, SELFPAY | END 2023-10-19 12:20 | disposition home or self-care (01) | LOC: HO.HAP 12:19 | PROVIDERS: Visit Provider Family Medicine | DX: Z46.1 Encounter for fitting and adjustment of hearing aid (principal); H90.3 Sensorineural hearing loss, bilateral | CPT/HCPCS: 92593; 99499 ==

== ENCOUNTER 2024-02-02 10:44 | Outpatient (REF) | payer MEDICARE, MEDICAID, SELFPAY ==
[2024-02-02 12:41] LABS: Creatinine Urine 158.61 mg/dL; Microalbum/Creatinine Ratio Ur 35.9 ug/mg cr (<30)
[2024-02-02 12:42] LABS: Alanine Aminotransferase 38 U/L (0-31); Alkaline Phosphatase 104 U/L (39-117); Anion Gap 15 (12-20); Aspartate Amino Transferase 32 U/L (5-31); Bilirubin Direct 0.2 mg/dL (0.0-0.5); Bilirubin Total 0.4 mg/dL (0.0-1.0); Blood Urea Nitrogen 15 mg/dL (9-16); Calcium 9.3 mg/dL (8.4-10.2); Carbon Dioxide 21 mmol/L (22-29); Chloride 105 mmol/L (96-108); Cholesterol 137 mg/dL (<200); Estimated Glomerular Filt Rate > 60; Glucose Random 130 mg/dL (60-115); HDL Cholesterol 56 mg/dL (>40); LDL Cholesterol Calculated 61 mg/dL (<100); Potassium 3.7 mmol/L (3.3-5.1); Sodium 137 mmol/L (135-145); Total Protein 8.2 g/dL (6.5-8.0); Triglycerides 102 mg/dL (<150)
== END 2024-02-02 10:45 | disposition home or self-care (01) ==
LOC: HO.HHCL 10:44
PROVIDERS: Visit Provider Family Medicine
DX: E78.5 Hyperlipidemia, unspecified (principal); E11.9 Type 2 diabetes mellitus without complications; Z79.4 Long term (current) use of insulin
CPT/HCPCS: 36415; 80048; 80061; 80076; 82043; 82570

== ENCOUNTER 2024-03-31 08:35 | Outpatient (REF) | payer MEDICARE, MEDICAID, SELFPAY ==
--- NOTE | ~2024-03-31 | US_ITS ---
EXAMINATION: US ABDOMEN COMPLETE CLINICAL INFORMATION: Transaminitis. COMPARISON: Ultrasound abdomen limited 10/11/2023. CT abdomen and pelvis 02/16/2011. TECHNIQUE: Real-time imaging of the abdominal viscera. Technically limited study secondary to body habitus. FINDINGS: PANCREAS: The visualized pancreas appears unremarkable but the pancreatic tail is obscured by bowel gas. ABDOMINAL AORTA: The proximal, mid, and distal segments are normal in caliber. INFERIOR VENA CAVA: Visualized portions are normal. LIVER: The liver is normal in size. The liver contour is normal. There is diffuse increased liver parenchymal echogenicity, consistent with hepatic steatosis similar to prior ultrasound as well as the CT from 2010. No focal hepatic lesion. There is no intrahepatic biliary duct dilatation seen. GALLBLADDER: Surgically absent. COMMON BILE DUCT: Normal in caliber measuring 0.9 cm in diameter. RIGHT KIDNEY: Normal. No hydronephrosis. No renal calculi or focal parenchymal lesions. The kidney measures 12.7 cm in maximum dimension. LEFT KIDNEY: Normal. No hydronephrosis. No renal calculi or focal parenchymal lesions. The kidney measures 12.3 cm in maximum dimension. SPLEEN: Spleen upper limits of normal in size measuring 12.2 cm in maximum dimension. FREE FLUID: None. US/US abdomen complete IMPRESSION: Hepatic steatosis. Electronically signed by: Santiago Chamberlain MD 05/26/2024 01:40 PM [facility]
== END 2024-03-31 08:36 | disposition home or self-care (01) ==
LOC: HO.US 08:35
PROVIDERS: PCP Family Medicine; Visit Provider Family Medicine
DX: R74.01 Elevation of levels of liver transaminase levels (principal)
CPT/HCPCS: 76700

== ENCOUNTER 2024-08-28 11:11 | Outpatient (REF) | payer MEDICARE, MEDICAID, SELFPAY ==
--- OUTSIDE RECORDS SUMMARY | 2024-08-28 12:44 | XMS_ITS | Encounter Summary ---
Author Organization [facility] Address [address] [place] [address] Care Team Providers Care Caul Fat Puller Name Role Phone Yashira Bethea MD Primary Care Provider [phone]- [phone] Nilda Alford PharmD Unavailable Encounter Details Date Type Department Care Team (Late st Contact Info) Description 08/18/2023 Orders Only [facility] MEDICINE [address] [place] [address] Yashira Bethea MD [address], [place] [phone] Social History Tobacco Use Types Packs/Day Years Used Date Smoking Tobacco: Never Smokeless Tobacco: Never PHQ-2 Answer Date Recorded Patient Health Questionnaire-2 Score 0 07/08/2022 Housing Stability Answer Date Recorded What is your housing situation today? I have housing today, but I am worried about losing housing in the future 04/07/[address] you li ve. Do you have problems with any of the following? None of the above 04/07/2023 Food Insecurity Answer Date Recorded Within the past 12 months, y ou worried that your food would run out before you got money to buy more: Never True 04/07/2023 Within the past 12 months,th e food you bought just didn't last and you didn't have enough money to get more: Never True Transportation Answer Date Recorded In the past 12 months, has l ack of transportation kept you from medical appts, meetings, work or from getting things needed for daily living? No 04/07/2023 Utilities Answer Date Recorded In the past 12 months, has t he electric, gas, oil or water company threatened to shut off services in your home? No 04/07/2023 Depression Answer Date Recorded Patient Health Questionnaire-2 Score 0 07/08/2022 Comments Unknown Sex and Gender Information Value Date Recorded Sex Assigned at Female 04/20/2022 10:16 AM EDT Legal Sex Female 10:16 AM EDT Gender Identity Female 04/20/2022 10:16 AM EDT Sexual Orientation Straight 04/20/2022 10 :16 AM EDT documented as of this encounter Plan of Treatment Upcoming Encounters Date Type Department Care Team (Late st Contact Info) Description 09/19/2024 11:30 AM EDT Medication Management [facility] MEDICINE [address] [place] [phone] Nilda Alford, PharmD [address] [place] [phone] 10/04/2024 2:15 PM EDT Office Visit [facility]INE [address] [place] [phone] Yashira Bethea MD [address] [place] [phone] documented as of this encounter Goals Goal Patient Goal Type Associated Problems Recent Progress Patient-Stated? Author Blood Pressure < 140/90 Blood Pressure 128/74(2024 11:40 AM EST) No Tazs-Kathy Saucedosa, PharmD Hemoglobin A1c < 7 Result Component 7.9( 11:00 AM EST) No Tazs-Ejl fili, Nilda, PharmD documented as of this encounter Visit Diagnoses Not on filedocumented in this encounter Care Teams Caul Fat Puller Relationship Specialty Start Date End Date Yashira Bethea MD [address] [place] [id number] PCP - General Family Medicine 05/02/13 Nilda Alford, PharmD [address] [place] [id number] Pharmacist Internal Medicine 06/16/22 documented as of this encounter
--- OUTSIDE RECORDS SUMMARY | 2024-08-28 12:44 | XMS_ITS | Encounter Summary ---
Author Organization [employer] [facility] Address [address] [facility] [address] [place] [address] Care Team Providers Care Radiology Director Name Role Phone Yashira Bethea MD Primary Care Provider +- [phone] Nilda Alford PharmD Unavailable [phone]- [phone] Reason for Referral * Consultation (Routine) - Pending Review Specialty Diagnoses / Procedures Referred By Arielle proctor Referred To Contact Pharmacy Diagnoses Primary hypertension Insulin dependent type 2 diabetes mellitus (CMS/HCC) Yashira Bethea MD [address] [place] [phone] Phone: tel: fax: Referral ID Status Reason Start Date Expiration Date Visits Requested Visits Authorized [id number] Pending Review Consult and Treat 04/27/2024 04/27/2025 6 6 Encounter Details Date Type Department Care Team (Late st Contact Info) Description 04/27/2024 Orders Only [facility] [address] [place] [id number] Yashira Bethea MD [address] [place] [address] [phone] Primary hypertension (Primary Dx); Insulin dependent type 2 diabetes mellitus (CMS/HCC) Social History Tobacco Use Types Packs/Day Years Used Date Smoking Tobacco: Never Smokeless Tobacco: Never Alcohol Answer Date Recorded Frequency of Alcohol Consumption Not on file 03/27/2024 Average Number of Drinks Not on file 024 Frequency of Binge Drinking Not on file 12/2023 Score 0 03/27/2024 Depression Answer Date Recorded Patient Health Questionnaire-9 Score 0 03/27/2024 Patient Health Questionnaire-9 Score 0 03/27/2024 Last PHQ-9: Questionnaire Data Not on file 1 Housing Stability Answer Date Recorded What is your housing situation today? I have clara dominguez 03/27/[address] you li ve. Do you have problems with any of the following? None of the above 03/27/2024 Food Insecurity Answer Date Recorded Within the past 12 months, y ou worried that your food would run out before you got money to buy more: Never True 03/27/2024 Within the past 12 months,th e food you bought just didn't last and you didn't have enough money to get more: Never True 12/2023 Transportation Answer Date Recorded In the past 12 months, has l ack of transportation kept you from medical appts, meetings, work or from getting things needed for daily living? No 03/27/2024 Utilities Answer Date Recorded In the past 12 months, has t he electric, gas, oil or water company threatened to shut off services in your home? No 03/27/2024 Depression Answer Date Recorded Patient Health Questionnaire-2 Score 0 03/27/2024 Internet Access Answer Date Recorded Internet Access Q1 No 03/27/2024 Internet Access Q2 Not on file 03/27/2024 Comments Unknown Sex and Gender Information Value [...] Description 09/19/2024 11:30 AM EDT Medication Management [facility] [address] [place] [address] Nilda Alford, PharmD [address] [place] [address] 10/04/2024 2:15 PM EDT Office Visit [facility] [address] [place] [address] Yashira Bethea MD [address] [place] [address] Scheduled Referrals Name Type Priority Associated Diagnoses Orde r Schedule Referral to Pharmacy CDTM Outpatient Referral Routine Primary hypertension Insulin dependent type 2 diabetes mellitus (CMS/HCC) Ordered: 04/27/2024 documented as of this encounter Goals Goal Patient Goal Type Associated Problems Recent Progress Patient-Stated? Author Blood Pressure < 140/90 Blood Pressure 128/74(2024 11:40 AM EST) No Nilda Toney [facility] Hemoglobin A1c < 7 Result Component 7.9( 11:00 AM EST) No Nilda Toney PharmD documented as of this encounter Visit Diagnoses Diagnosis Primary hypertension- Primary Unspecified essential hypertension Insulin dependent type 2 diabetes mellitus (CMS/HCC) documented in this encounter Additional Health Concerns Assessment Noted Time PHQ-9 Depression Total Score: 0 03/27/20 24 10:39 AM EDT documented as of this encounter Care Teams Radiology Director Relationship Specialty Start Date End Date Yashira Bethea MD [address] [place] [phone] PCP - General Family Medicine 05/02/13 Nilda Alford PharmD [address] [place] [phone] Pharmacist Internal Medicine 06/16/22 documented as of this encounter
--- OUTSIDE RECORDS SUMMARY | 2024-08-28 12:44 | XMS_ITS | Encounter Summary ---
Author Organization [facility] Address [address] [facility] [address] [place] [address] Care Team Providers Care Hydraulic Technician Name Role Phone Yashira Bethea MD Primary Care Provider [phone]- [phone] Nilda Alford PharmD Unavailable Reason for Visit * Reason Comments Med Refill Encounter Details Date Type Department Care Team (Late st Contact Info) Description 10/14/2022 Refill [facility] [address] [place] [address] Yashira Bethea MD [address] [place], [place] [phone] Social History Tobacco Use Types Packs/Day Years Used Date Smoking Tobacco: Never Smokeless Tobacco: Never PHQ-2 Answer Date Recorded Patient Health Questionnaire-2 Score 0 07/08/2022 Depression Answer Date Recorded Patient Health Questionnaire-2 Score 0 07/08/2022 Comments Unknown Sex and Gender Information Value Date Recorded Sex Assigned at Female 04/20/2022 10:16 AM EDT Legal Sex Female 10:16 AM EDT Gender Identity Female 04/20/2022 10:16 AM EDT Sexual Orientation Straight 04/20/2022 10 :16 AM EDT COVID-19 Exposure Response Date Recorded In the last 10 days, have yo u been in contact with someone who was confirmed or suspected to have Coronavirus/COVID-19? No / Unsure 10/01/2022 12:54 PM EDT documented as of this encounter Plan of Treatment Upcoming Encounters Date Type Department Care Team (Late st Contact Info) Description 09/19/2024 11:30 AM EDT Medication Management [facility] [address] [place] [phone] Nilda Alford PharmD [address] [place] [phone] 10/04/2024 2:15 PM EDT Office Visit [facility] [address] [place] [phone] Yashira Bethea MD [address] [place] [phone] documented as of this encounter Goals Goal Patient Goal Type Associated Problems Recent Progress Patient-Stated? Author Hemoglobin A1c < 7 Result Component 7.9(07/25/2024 11:00 AM EST) No Nilda Alford PharmD documented as of this encounter Visit Diagnoses Not on filedocumented in this encounter Care Teams Hydraulic Technician Relationship Specialty Start Date End Date Yashira Bethea MD [address] [place] [phone] PCP - General Family Medicine 05/02/13 Nilda Alford PharmD [address] [place] [phone] Pharmacist Internal Medicine 06/16/22 documented as of this encounter
--- OUTSIDE RECORDS SUMMARY | 2024-08-28 12:44 | XMS_ITS | Clinical Summary ---
Author Organization [employer] Address [address] [place] [address] Care Team Providers Care Acid Concentrator Name Role Phone Yashira Bethea MD Primary Care Provider [phone]- [phone] Nilda Alford PharmD Unavailable Allergies Active Allergy Reactions Criticality Noted Date Comments Shellfish Allergy 09/24/2022 Protein Unknown 01/31/2023 Medications nystatin (Mycostatin) 116326 UNIT/GM powder apply by topical route 2 times every day to the affected area(s) Active fluticasone (Flonase) 50 MCG/ACT nasal spray TAKE 1 SPRAY IN EACH NOSTRIL ONCE A DAY Active latanoprost (Xalatan) 0.005 % ophthalmic solution INSTILL 1 DROP EVERY EVENING Active ketoconazole (NIZOral) 2 % shampoo APPLY TO THE SCALP TWO TIMES PER WEEK. LEAVE ON FOR 5 MINUTES THEN WASH OFF. Active hydrocortisone 2.5 % cream APPLY TOPICALLY TO AFFECTED AREA(S) TWICE DAILY. DECREASE WHEN SYMPTOMS IMPROVE. 023 Active pravastatin (Pravachol) 40 MG tabletIndication s:Hyperlipidemia , unspecified hyperlipidemia type TAKE 1 TABLET BY MOUTH EVERY EVENING 90 tablet 3 Active alclometasone (Aclovate) 0.05 % cream APPLY TO THE AFFECTED AREA(S) UNDER BREASTS, ABDOMINAL, AND BETWEEN LEGS ONCE DAILY NEEDED. DECREASE WHEN SYMPTOMS IMPROVE 02/06/2 024 Active insulin pen needle (UltiGuard SafePack Pen Needle) 32G x 4 mm miscIndications: Insulin dependent type 2 diabetes mellitus ([facility]/HCC) USE DIRECTED FOUR TIMES DAILY 100 each 11 024 Active D3 Super Strength 50 MCG (1999 UT) capsuleIndicatio ns:Vitamin D deficiency TAKE 1 CAPSULE BY MOUTH EVERY EVENING 90 capsule 3 024 Active cyclobenzaprine (Flexeril) 5 MG tablet Take 5 mg by mouth if needed in the morning, at noon, and at bedtime for muscle spasms. 024 Active cetirizine (ZyrTEC) 10 MG tabletIndication s:Seasonal allergies TAKE 1 TABLET BY MOUTH EVERYDAY AT NOON 90 tablet 1 024 Active glucose blood (FREESTYLE LITE) test stripIndications :Type 2 diabetes mellitus without complications ([facility]/HCC) TEST BLOOD SUGAR THREE TIMES DAILY 100 strip 3 024 Active TRUEplus Lancets 33G miscIndications: Type 2 diabetes mellitus without complications (CMS/HCC) TEST BLOOD SUGAR THREE TIMES DAILY 100 each 11 024 Active Aspirin Low Dose 81 MG EC tabletIndication s:Cardiomyopathy , unspecified type (CMS/HCC) TAKE 1 TABLET BY MOUTH EVERY EVENING 90 tablet 1 024 Active Dulaglutide (Trulicity) 3 MG/0.5ML solution auto-injectorInd ications:Type 2 diabetes mellitus without complication, with long-term current use of insulin ([facility]) Inject 0.5 mL (3 mg) under the skin 1 (one) time per week. 2 mL 3 024 Active levothyroxine (Synthroid, Levoxyl) 75 MCG tabletIndication s:Acquired hypothyroidism TAKE 1 TABLET BY MOUTH EVERY MORNING 90 tablet 3 025 Active Ventolin HFA 108 (90 Base) MCG/ACT inhalerIndicatio ns:Mild intermittent asthma without complication INHALE 2 PUFFS BY MOUTH EVERY 4 HOURS NEEDED FOR WHEEZING 18 g 1 025 Active lisinopril 10 MG tabletIndication s:Primary hypertension Take 1 tablet (10 mg) by mouth Once per day. 90 tablet 3 025 Active insulin glargine (Basaglar KwikPen) 100 UNIT/ML penIndications:T ype 2 diabetes mellitus without complication, unspecified whether prison insulin use ([facility]) Inject subcutaneously 64 units once daily 025 Active insulin aspart (NovoLOG FLEXPEN) 100 UNIT/ML penIndications:T ype 2 diabetes mellitus without complication, unspecified whether prison insulin use ([facility]) Inject subcutaneously 10 units with breakfast, 14 units with lunch and 26 units with dinner. Do not use if skipping the meal. 025 Active triamcinolone (Kenalog) 0.1 % ointment APPLY TO THE AFFECTED AREA TWICE DAILY 2024 Discontinued(M ed list cleanup (will not trigger notification to Pharmacy)) insulin glargine (Lantus SoloStar) 100 UNIT/ML penIndications:T ype 2 diabetes mellitus without complication, unspecified whether prison insulin use ([facility]) INJECT 60 UNITS SUBCUTANEOUSLY ONCE DAILY 024 2024 Discontinued(F ormulary change) insulin lispro (HumaLOG KWIKPEN) 100 UNIT/ML injectionIndicat ions:Type 2 diabetes mellitus without complications ([facility]) INJECT 10 UNITS SUBCUTANEOUSLY BEFORE BREAKFAST, 14 UNITS BEFORE LUNCH, AND 22 UNITS BEFORE SUPPER 15 mL 3 025 2024 Discontinued(F ormulary change) lisinopril 10 MG tabletIndication s:Primary hypertension Take 1 tablet (10 mg) by mouth Once per day. 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 Do not use if skipping the meal. 15 mL 3 025 2024 Discontinued lisinopril 10 MG tabletIndication s:Primary hypertension Take 1 tablet (10 mg) by mouth Once per day. 90 tablet 025 2024 Discontinued(R eorder (will not trigger notification to Pharmacy)) Active Problems Problem Noted Date Diagnosed Date Major depressive disorder wi th single episode, in partial remission 03/24/2024 Overview (03/27/2024): -Doing well with therapist and psychiatrist. Assessment & Plan (03/27/2024 8:13 PM EDT): -Doing well with therapist and psychiatrist. Transaminitis 04/19/2023 Overview (05/29/2024): Diagnosis: metabolic dysfunction-associated steatotic liver disease Lab Results Component Value Date AST 32 (H) 02/02/2024 AST 42 (H) 04/26/2023 AST 35 10/01/2022 ALT 38 (H) 02/02/2024 ALT 33 (H) 04/26/2023 ALT 31 (H) 10/01/2022 ALT 32 (H) 08/08/2021 TOTALBILIRUB 0.4 02/02/2024 TOTALBILIRUB 0.4 04/26/2023 PLT 235 04/19/2023 CREATININE 0.77 02/02/2024 NA 137 02/02/2024 Ultrasound: 03/27/24 Diffuse increased liver parenchymal echogenicity, consistent with hepatic steatosis similar to prior ultrasound as well as the CT from 2010. No focal hepatic lesion. There is no intrahepatic biliary duct dilatation seen. Staging of Fibrosis: Fib 4: 1.37 05/29/24 HCC screening: US neg 03/2024 Plan: Avoid alcohol. Dietary modification, increase physical activity. Plan to repeat labs in 3-6 months, consider US with elastography if persistently elevated after 3-6 months & FIB4 > 1.3. Assessment & Plan (03/27/2024 8:13 PM EDT): Lab Results Component Value Date TOTALBILIRUB 0.4 02/02/2024 AST 32 (H) 02/02/2024 AST 35 10/01/2022 ALT 38 (H) 02/02/2024 ALT 31 (H) 10/01/2022 ALP 104 02/02/2024 -us ordered 03/27/24 Radiculopathy affecting upper extremity 04/19/20 23 Overview (02/02/2024): -Referral to PT done 04/19/2023 for right arm Assessment & Plan (04/19/2023 10:21 AM EDT): -Referral to PT done 04/19/2023 for right arm. Preventative health care 12/16/2022 Overview (04/19/2023): -next physical exam due after 04/19/2024 -eye care facilitated by [facility], last 05/2022, will request note 12/18/2022. -dental home is [facility], follow up encouraged today. Assessment & Plan (03/27/2024 8:13 PM EDT): -next physical exam due after 04/19/2024 -eye care facilitated by [facility], last 05/2022, will request note 12/18/2022. -dental home is [facility], follow up encouraged today. Assessment & Plan (04/19/2023 9:56 AM EDT): -next physical exam due after 04/19/2024 -eye care facilitated by [facility], last 05/2022, will request note 12/18/2022. -dental home is [facility], follow up encouraged today. Assessment & Plan (12/18/2022 10:15 AM EDT): -next physical exam due after -eye care facilitated by [facility], last 05/2022, will request note 12/18/2022. -dental home is [facility], follow up encouraged today. Primary hypertension 10/01/2022 Overview (07/31/2024): -Blood pressure is at goal -Continue lifestyle modifications -Continue current medications -lisinopril increased to 10mg once daily by [facility] 07/25/24 Assessment & Plan (03/27/2024 8:12 PM EDT): -Blood pressure is at goal -Continue lifestyle modifications -Continue current medications -lisinopril increased to 5mg by [facility] 01/04/24 Assessment & Plan (04/19/2023 9:28 AM EDT): Lisinopril increased to 5mg 10/01/2022. Assessment & Plan (12/18/2022 9:00 AM EDT): Lisinopril increased to 5mg 10/01/2022. Assessment & Plan (10/01/2022 1:26 PM EDT): Lisinopril increased to 5mg 10/01/2022. Vitamin D deficiency 07/07/2022 Acquired hypothyroidism 06/16/2022 Overview (02/02/2024): - Lab Results Component Value Date TSH 2.50 04/26/2023 TSH 3.37 07/08/2022 -continue levothyroxine 50 mcg daily. Assessment & Plan (03/27/2024 8:12 PM EDT): - Lab Results Component Value Date TSH 2.50 04/26/2023 TSH 3.37 07/08/2022 -continue levothyroxine 50 mcg daily. Assessment & Plan (04/19/2023 9:25 AM EDT): -TSH 4.0 07/2021. -TSH 4.98 on December 2019 -she is on levothyroxine 50 mcg daily. Assessment & Plan (12/18/2022 8:59 AM EDT): -TSH 4.0 07/2021. -TSH 4.98 on December 2019 -she is on levothyroxine 50 mcg daily. Assessment & Plan (09/29/2022 11:23 AM EDT): -TSH 4.0 07/2021. -TSH 4.98 on December 2019 -she is on levothyroxine 50 mcg daily. Assessment & Plan (07/07/2022 3:39 PM EST): -TSH 4.0 07/2021. -TSH 4.98 on December 2019 -she is on levothyroxine 50 mcg daily. Glaucoma 06/16/2022 Onychomycosis 04/17/2022 Bilateral hearing loss 08/03/2021 Overview (07/07/2022): Followed by audiology for bilateral hearing aids. Assessment & Plan (03/27/2024 8:13 PM EDT): Followed by audiology for bilateral hearing aids. Assessment & Plan (04/19/2023 9:25 AM EDT): Followed by audiology for bilateral hearing aids. Assessment & Plan (12/18/2022 8:59 AM EDT): Followed by audiology for bilateral hearing aids. Assessment & Plan (09/29/2022 11:23 AM EDT): Followed by audiology for bilateral hearing aids. Assessment & Plan (07/07/2022 3:40 PM EST): Followed by audiology for bilateral hearing aids. Lumbago with sciatica 08/03/2021 Class 3 severe obesity due t o excess calories with serious comorbidity and body mass index (BMI) of 45.0 to 49.9 in adult 08/03/2021 Seasonal allergies 08/03/2021 Tubular adenoma 08/03/2021 Overview (06/07/2023): -last colonscopy 02/16/2018 -Tubular a in repeat colonoscopy with [facility] 05/17/23 Assessment & Plan (04/19/2023 10:09 AM EDT): -last colonscopy 02/16/2018 -Next colonoscopy 04/2023. -Referral done 04/19/2023 Assessment & Plan (12/18/2022 10:28 AM EDT): -last colonscopy 02/16/2018 -Next colonoscopy 04/2023. Assessment & Plan (10/01/2022 1:28 PM EDT): -last colonscopy 02/16/2018 -Pt has an upcoming GI appointment. Assessment & Plan (07/08/2022 10:05 AM EST): -Last colonscopy 02/16/2018 -Pt referred to [facility] 07/08/2022 Cardiomyopathy 10/28/2018 Overview (03/27/2024): -cardiology appointment scheduled for March 2014 Assessment & Plan (03/27/2024 8:12 PM EDT): -cardiology appointment scheduled for March 2014 Hyperlipidemia 09/07/2018 Overview (02/02/2024): Lab Results Component Value Date CHOL 137 02/02/2024 CHOL 133 04/26/2023 TRIG 102 02/02/2024 TRIG 120 04/26/2023 TRIG 192 (H) 07/08/2022 HDL 56 02/02/2024 HDL 48 04/26/2023 LDLCHOLCAL 61 02/02/2024 LDLCHOLCAL 61 04/26/2023 -continue lifestyle modifications -continue pravastatin 40mg daily Assessment & Plan (03/27/2024 8:13 PM EDT): Lab Results Component Value Date CHOL 137 02/02/2024 CHOL 133 04/26/2023 TRIG 102 02/02/2024 TRIG 120 04/26/2023 TRIG 192 (H) 07/08/2022 HDL 56 02/02/2024 HDL 48 04/26/2023 LDLCHOLCAL 61 02/02/2024 LDLCHOLCAL 61 04/26/2023 -continue lifestyle modifications -continue pravastatin 40mg daily Assessment & Plan (04/19/2023 9:27 AM EDT): Lab Results Component Value Date CHOLESTEROL 147 07/08/2022 LDLCHOL 69 07/08/2022 LDLCHOL 69 08/08/2021 TRIG 192 (H) 07/08/2022 HDLCHOL 52 07/08/2022 CHOLHDLRAT 2.8 07/08/2022 -continue lifestyle modifications -continue pravastatin 40mg daily Assessment & Plan (12/16/2022 12:08 PM EDT): Lab Results Component Value Date CHOLESTEROL 147 07/08/2022 LDLCHOL 69 07/08/2022 LDLCHOL 69 08/08/2021 TRIG 192 (H) 07/08/2022 HDLCHOL 52 07/08/2022 CHOLHDLRAT 2.8 07/08/2022 -continue lifestyle modifications -continue pravastatin 40mg daily Intestinal metaplasia of gastric mucosa 02/19/20 18 Mild intermittent asthma 03/22/2017 Overview (03/27/2024): -Well controlled on occasional albuterol PRN Assessment & Plan (03/27/2024 8:11 PM EDT): -Well controlled on occasional albuterol PRN Diverticular disease 07/03/2013 Allergic rhinitis 02/15/2012 Anemia 02/15/2012 Insulin dependent type 2 diabetes mellitus 12/02 Overview (08/28/2024): Followed in [facility]. Declines CGM; SMBG with Freestyle Lite Lab Results Component Value Date HGBA1C 7.9 (A) 07/25/2024 HGBA1C 7.8 (A) 03/27/2024 HGBA1C 7.6 (A) 01/04/2024 Lab Results Component Value Date CREATININE 0.77 02/02/2024 EGFR >60 02/02/2024 MICROALBCREU 35.9 (H) 02/02/2024 MICROALBCREU 21.4 04/26/2023 LDLCHOLCAL 61 02/02/2024 -Lantus solostar and Humalog Kwikpen : switched to basaglar and novolog per insurance formulary coverage 07/25/24 -Trulicity increased to 3mg once weekly by [facility] 06/01/24 -Brown/Arb: lisinopril 10mg -Statin therapy: pravastatin 40mg -Diabetic eye exam: [facility] in [facility], last 06/07/2019 -Diabetic foot exam: 03/27/24 done -Continue lifestyle modifications Assessment & Plan (03/27/2024 8:13 PM EDT): Diabetes is controlled. Followed in [facility]. Declines CGM; SMBG with Freestyle Lite Lab Results Component Value Date HGBA1C 7.8 (A) 03/27/2024 HGBA1C 7.6 (A) 01/04/2024 HGBA1C 7.6 (A) 10/05/2023 Lab Results Component Value Date CREATININE 0.77 02/02/2024 EGFR >60 02/02/2024 MICROALBCREU 35.9 (H) 02/02/2024 MICROALBCREU 21.4 04/26/2023 LDLCHOLCAL 61 02/02/2024 -Lantus solostar and Humalog Kwikpen -Continue Trulicity 1.5 mg once weekly (patient reports [place]) -Brown/Arb: lisinopril 5mg -Statin therapy: provastatin 40mg -Diabetic eye exam: [facility] in [facility], last 06/07/2019 -Diabetic foot exam: 03/27/24 done -Continue lifestyle modifications Assessment & Plan (04/19/2023 9:26 AM EDT): Diabetes is controlled. - Lab Results Component Value Date HGBA1C 7.3 12/29/2022 HGBA1C 8.1 (A) 10/01/2022 HGBA1C 7.8 (H) 10/01/2022 -No results found for: POCA1C - Lab Results Component Value Date MICROALBUR 3.6 08/08/2021 CREATININE 0.75 01/31/2023 --Changes: -Increase trulicity 1.5mg 10/01/2022. -Increase Lisinopril to 5mg 10/01/2022. -Continues lantus and nova log -Awaiting continued BG monitor. -Brown/Arb: lisinopril 5mg -Statin therapy: provastatin 40mg -Diabetic eye exam: [facility] in [facility], last 06/07/2019-Diabetic foot exam: Done 10/01/2022. -Continue lifestyle modifications -Continue current medications: Lantus Solostar Humalog Kwikpen Trulicity 1.5mg weekly Assessment & Plan (12/18/2022 10:48 AM EDT): Diabetes is controlled. Lab Results Component Value Date HGBA1C 7.9 (H) 08/08/2021 - Lab Results Component Value Date MICROALBUR 3.6 08/08/2021 CREATININE 0.65 07/08/2022 -Changes: -Increase trulicity 1.5mg 10/01/2022. -Increase Lisinopril to 5mg 10/01/2022. -Continues lantus and nova log -Awaiting continued BG monitor. -Brown/Arb: lisinopril 5mg -Statin therapy: provastatin 40mg -Diabetic eye exam: [facility] in [facility], last 06/07/2019-Diabetic foot exam: Done 10/01/2022. -Continue lifestyle modifications -Continue current medications: Lantus Solostar Humalog Kwikpen Trulicity 1.5mg weekly Assessment & Plan (10/01/2022 1:25 PM EDT): Diabetes is controlled. -a1c 8.1% on 10/01/2022. Lab Results Component Value Date HGBA1C 7.9 (H) 08/08/2021 - Lab Results Component Value Date MICROALBUR 3.6 08/08/2021 CREATININE 0.65 07/08/2022 -Changes: -Increase trulicity 1.5mg 10/01/2022. -Increase Lisinopril 5mg 10/01/2022. -Continues lantus and nova log -Awaiting continued BG monitor -Brown/Arb: lisinopril 5mg -Statin therapy: provastatin 40mg -Diabetic eye exam: At [place], Pt will call for follow up. -Diabetic foot exam: Done 10/01/2022. -Continue lifestyle modifications -Continue current medications Resolved Problems Problem Noted Date Diagnosed Date Resolved Date Postmenopausal 03/24/2024 03/27/2024 Overview (03/24/2024): Final Menstrual Period: Symptoms: {Menopause s/s:91409} Risk factors for osteoporosis: {sjbosteoporosisriskfactors:82774} -USPTF recommends DEXA be preformed on all women > 65 years and women younger than 65 who have gone through menopause and are at increased risk of an osteoporotic fracture, as estimated by clinical risk assessment. -Discussed with the patient all the options for osteoporosis prevention and advised: -Ca+D supplements 1200 mg po qd/800 MIU -Weight bearing exercises -Adequate protein intake -Supplements may include magnesium, omega-3 -DEXA done: Results: T score interpretation: Positive = normal -1.4 normal -1.5-2.4 osteopenia, look at lifetime risk for fracture with FRAX if > 3% or >20% major consider medication -2.5 or less is osteoporosis https://frax.shef.ac.uk/frax/tool.aspx?country=9 Physical exam 04/19/2023 03/27/2024 Overview (04/19/2023): -Normal growth and development. -Anticipatory guidance discussed. -Preventative care / harm reduction discussed. Assessment & Plan (04/19/2023 9:55 AM EDT): -Normal growth and development. -Anticipatory guidance discussed. -Preventative care / harm reduction discussed. Atypical chest pain 03/02/2023 03/27/20 24 Diabetes due to undrl condit ion w oth diabetic neuro comp 12/18/2022 02/02/2024 Personal history of colonic polyps 12/16/2022 04/19/2023 Overview (04/19/2023): -has colonoscopy for 04/2023 Colon polyps 09/24/2022 09/29/2022 Major depressive disorder 07/07/2022 Overview (03/27/2024): Assessment & Plan (04/19/2023 9:27 AM EDT): Doing well with therapist and psychiatrist. Assessment & Plan (12/18/2022 8:59 AM EDT): Doing well with therapist and psychiatrist. Assessment & Plan (09/29/2022 11:24 AM EDT): Doing well with therapist and psychiatrist. Assessment & Plan (07/07/2022 3:40 PM EST): Doing well with therapist and psychiatrist. Left lower quadrant abdominal pain 07/07/2022 07/07/2022 Overview (07/07/2022): -No evidence of acute abdominal, was told to increase fiber. Assessment & Plan (07/07/2022 3:41 PM EST): -No evidence of acute abdominal, was told to increase fiber. Tubular adenoma of colon 02/18/201804/2023 Encounters Date Type Department Care Team Description 08/22/2024 Travel 07/25/2024 Travel 07/21/2024 Refill [facility] [address] [place] [address] Yashira Bethea MD Mild intermittent asthma without complication 07/10/2024 Refill [facility] [address] [place] [address] Chasity Meyer MD Acquired hypothyroidism 07/02/2024 Refill [facility] [address] [place] [address] Nilda Alford PharmD Type 2 diabetes mellitus without complications ([facility]/HCC) 06/01/2024 Travel 05/31/2024 Refill [facility] [address] [place] [address] Yashira Bethea MD Cardiomyopathy, unspecified type ([facility]) from Last 3 Months Immunizations Name Administration Dates Next Due Hep B, adult 01/16/2015,09/21/2014,06/04/2014 Influenza Injectable Quadriv alant Preservative Free IIV4 MDCK 04/14/2019 Influenza injectable quadriv alent IIV4 with preservative 03/17/2018,04/12/2017,04/29/2015 Influenza injectable quadriv alent preservative free 04/19/2023,04/17/2022,04/04/2021,03/21 Influenza, IIV3, injectable 06/04/2014, 1 Influenza, Split (incl. radha fied surface antigen) 07/03/2013,02/15/2012 Influenza, seasonal, injecta ble, preservative free 03/27/2024 Pfizer Covid-19 Vaccine 12+ 03/27/2024 Pfizer Covid-19 Vaccine 12+ Bivalent 12/18/2022 Pneumococcal Conjugate PCV 20 06/18/2022 Pneumococcal Polysaccharide PPSV23 01/16/2015, RSV Bivalent 01/04/2024 TD (adult), 2 Lf tetanus tox oid, preservative free, adsorbed 08/04/2002 Tdap 03/27/2024,07/03/2013 Zoster, Recombinant 12/12/2021,07/09/2021 Social History Tobacco Use Types Packs/Day Years Used Date Smoking Tobacco: Never Smokeless Tobacco: Never Tobacco Cessation:Counseling Given: Not Answered Alcohol Answer Date Recorded Frequency of Alcohol [...] Orientation Straight 04/20/2022 10 :16 AM EDT Last Filed Vital Signs Vital Sign Reading Time Taken Comments Blood Pressure 128/74 08/22/2024 11:40 AM EST Pulse 108 08/22/2024 11:40 AM EST Temperature 36.1 ??C (97 ??F) 03/27/2024 10:37 AM EDT Respiratory Rate 17 03/27/2024 10:37 AM EDT Oxygen Saturation 98% 03/27/2024 10:37 AM EDT Inhaled Oxygen Concentration - - Weight 98 kg (216 lb) 03/27/2024 10:37 AM EDT Height 147.3 cm (4' 10 ) 03/27/2024 10:37 AM EDT Body Mass Index 45.14 03/27/2024 10:37 AM EDT Plan of Treatment Upcoming Encounters Date Type Department Care Team (Late st Contact Info) Description 09/19/2024 11:30 AM EDT Medication Management [facility] [address] [place] [phone] Nilda Alford, PharmD [address] [place] [phone] 10/04/2024 2:15 PM EDT Office Visit [facility] [address] [place] [phone] Yashira Bethea MD [address] [place] [phone] Health Maintenance Due Date Last Done Comments CT Colonography 1961 FIT DNA/Cologuard 1961 FIT 1961 FOBT 1961 Sigmoidoscopy 1961 Hepatitis A Vaccines (1 of 2 - Risk 2-dose series) 1980 Diabetes: Hemoglobin A1C 10/22/2024 02 025, 03/27/2024, 01/04/2024, Additional history exists Diabetes: Urine Protein Screening 02/01/2025 02/02/2024, 04/26/2023, 08/08/2021, Additional history exists Lipid Panel 02/01/2025 02/02/2024, 11/2022, 07/08/2022, Additional history exists Alcohol/Substance Use Screening 03/27/2025 03/27/2024 Depression Screening 03/27/2025 03/27/2024, 03/27/20 Diabetes: Foot Exam 03/27/2025 03/27/2024, 03/27/2024, 03/27/2024, Additional history exists SDOH Screening 03/27/2025 03/27/2024 Tobacco Screening 03/27/2025 03/27/2024 Mammogram 07/30/2025 07/30/2023, 020 08/2022, 07/24/2022, Additional history exists Eye Exam 08/19/2025 08/20/2023, 030 06/2023, 08/20/2023, Additional history exists Cervical Cancer Screening 12/19/2027 HPV/Cotest 12/19/2027 12/18/2022, 06/2017, 11/19/2017 Pap Smear 12/19/2027 12/18/2022, 11/19/2017 Colonoscopy 05/17/2028 05/17/2023, 02/16/2018 Colorectal Cancer Screening 05/17/2028 DTaP/Tdap/Td Vaccines (3 - Td or Tdap) 03/27/2034 03/27/2024, 07/03/2013, 08/04/2002 Hepatitis C Screening Completed 11/24/2013 Hepatitis B Vaccines Completed 01/16/2015, 09/21/2014, 06/04/2014 HIV Screening Completed 01/02/2020, 01/02/2020 Zoster Vaccines Completed 12/12/2021, 07/09/2021 Pneumococcal Vaccine: 50+ Years Completed 06/18/2022, 01/16/2015, 02/28/2007 RSV Patients and Patients Aged 60 years or older Completed 01/04/2024 COVID-19 Vaccine Completed 03/27/2024, 11/2023, 12/18/2022, Additional history exists Influenza Vaccine Completed 03/27/2024, , 04/17/2022, Additional history exists HIB Vaccines Aged Out No longer eligi ble based on patient's age to complete this topic HPV Vaccines Aged Out No longer eligi ble based on patient's age to complete this topic IPV Vaccines Aged Out No longer eligi ble based on patient's age to complete this topic Meningococcal Vaccine Aged Out No km marnie eligible based on patient's age to complete this topic RSV under 20 months Aged Out No longe r eligible based on patient's age to complete this topic Rotavirus Vaccines Aged Out No longer eligible based on patient's age to complete this topic Goals Goal Patient Goal Type Associated Problems Recent Progress Patient-Stated? Author Blood Pressure < 140/90 Blood Pressure 128/74(2024 11:40 AM EST) No Nilda Toney PharmD Hemoglobin A1c < 7 Result Component 7.9( 11:00 AM EST) No Nilda Toney PharmD Procedures Procedure Name Priority Date/Time Associated Diagnosis Comments POCT GLYCATED HEMOGLOBIN, TOTAL Routine 07/25/2024 11:00 AM EST Type 2 diabetes mellitus without complication, unspecified whether termite exterminator insulin use ([facility]) ALBUMIN, RANDOM URINE W/CREATININE Routine 02/02/2024 10:47 AM EDT LIPID PANEL, STANDARD Routine 02/02/2024 10:47 AM EDT BI MAMMOGRAM SCREENING TOMOSYNTHESIS BILATERAL Routine 07/30/2023 12:25 PM EST HM COLONOSCOPY Routine 05/17/2023 THINPREP PAP, HPV MRNA E6/E7 RFX HPV 16,18/45, CHLAMYDIA/N.GONORRHOEA E Routine 12/18/2022 10:46 AM EDT Cervical cancer screening HIV 1/2 ANTIGEN/ANTIBODY, FOURTH GENERATION W/RFL Routine 01/02/2020 HEPATITIS C AB W/REFL TO HCV RNA, QN, PCR Routine 11/24/2013 from Last 3 Months or Most Recently Relevant to Health Maintenance Results * (ABNORMAL) POCT A1C (07/25/2024 11:00 AM EST) Hemoglobin A1C 7.9(A) 4.0 - 6.0 % QC Media Lot # [id number] Lot# Expiration Date Blood 07/25/2024 11:0 0 AM EST Yashira Bethea MD POINT OF CARE TEST ENTER/E DIT ORDERABLES Final Result * (ABNORMAL) Albumin, Random Urine W/Creatinine (02/02/2024 10:47 AM EDT) Creatinine, Urine 158.61 mg/dL [facility] Microalbumin Urine 57.0 mg/L [facility] Microalbum Creatinine Ratio Ur 35.9(H) <30 ug/mg cr [facility] Comment:Albumin/Creatinine R atio Reference Ranges: Normal: < 30 ug/mg creatinine Microalbuminuria: 30 - 300 ug/mg creatinineClinical Albuminuria: > 300 ug/mg creatinine 02/02/2024 10:4 7 AM EDT 02/02/2024 11:29 AM EDT Yashira Bethea MD LAB URINE ORDERABLES Final Result [facility] [address] [place] [phone] * Lipid Panel, Standard (02/02/2024 10:47 AM EDT) Triglycerides 102 <150 mg/dL [facility] Comment:Desirable Triglyceri de: less than 150 mg/dLBorderline High Triglyceride 150-199 mg/dLHigh Triglyceride: 200-499 mg/dLVery High Triglyceride: greater than or equal to 5OO mg/dL Cholesterol 137 <200 mg/dL [facility] Comment:Desirable Cholestero l: less than 200 mg/dLBorderline High Cholesterol: 200-239 mg/dLHigh Cholesterol: greater than 239 mg/dL LDL Cholesterol Calculated 61 <100 mg/dL [facility] Comment:Desirable LDL: less than 100 mg/dLNear Optimal/Above Optimal LDL: 110- 129 mg/dLBorderline High LDL: 130-159 mg/dLHigh LDL: 160-189 mg/dLVery High LDL: greater than or equal to 190 mg/dL HDL Cholesterol 56 >40 mg/dL [facility] Comment:Desirable HDL: great er than 40 mg/dL Note: This HDL assay may give artificially low results in patients with liver disease. 02/02/2024 10:4 7 AM EDT 02/02/2024 11:33 AM EDT us Yashira Bethea MD LAB BLOOD ORDERABLES Final Result [facility] [address] [place] [phone] * BI Mammogram Screening Tomosynthesis Bilateral (07/30/2023 12:25 PM EST) Anatomical Region Laterality Modality Breast Bilateral Mammography 07/30/2023 12:2 5 PM EST Narrative 08/21/2023 8:26 PM EST ? [facility] [place] ? [address] ?[place] [address] ? Mammography Report ? Signed ? Patient: Ignacio,Onaida ?MR#: [id number] ? : 1960 ?Acct:[id number] ? Age/Sex: 62 / F ?ADM Date: 02/09/24 ? Loc: HO.MAMMO ? Attending Dr: Yashira Bethea MD ? Ordering Physician: Yashira Bethea MD ?Results: 1N ?? egative ? Date of Service: 07/30/23 ?Follow Up: 1 Year From Orig ?? inal Mammogram ? Procedure(s): MM tomosynthesis screening BI ?? Accession Number(s): [id number] ? cc: Yashira Bethea MD ? EXAMINATION: ?? MM SCREENING DIGITAL BREAST TOMOSYNTHESIS, BILATERAL ? CLINICAL INFORMATION: ? Screening. Asymptomatic. ? COMPARISON: ?? Mammography: This study is compared with prior exams dating back to ?? 2019. ? TECHNIQUE: ?? Digital breast tomosynthesis is performed in both the craniocaudal and ?? mediolateral oblique views along with computer-aided detection (CAD). ?? Synthesized 2D images are generated from the tomosynthesis. ? FINDINGS: ?? There are scattered areas of fibroglandular density (ACR BI-RADS breast ?? composition Category b). ? There are no significant masses, abnormal calcifications, or other ?? abnormalities. ? MM/MM tomosynthesis screening BI ?? IMPRESSION: ?? No mammographic evidence of malignancy. ? ASSESSMENT: ? BI-RADS BI-RADS 1 - Negative ? RECOMMENDATION: ?? Routine annual mammography screening. ? 1 year F/U ? This examination should not preclude the clinical evaluation of a ?? suspicious palpable abnormality. ? This patient's information was entered into a reminder system with a ?? target due date for their next mammogram. ? Dictated By: ?Raegan Randhawa MD ? Signed By: ?<Electronically signed by Raegan Randhawa MD in OV> ? 08/21/232021 ? DD/ 1225 ? TD/TT: ? Sailing Instructor: ? Procedure Note Donotuseinterpreter, Image - [facility] [address] [place] [address] Mammography Report Signed Patient: Benoit Ignacio#: [id number] : 2Acct:[id number] Age/Sex: 62 / FADM Date: 07/30/23 Loc: HO.MAMMO Attending Dr: Yashira Bethea MD Ordering Physician: Yashira Bethea MDResults: 1N egative Date of Service: 07/30/23Follow Up: 1 Year From Orig inal Mammogram Procedure(s): MM tomosynthesis screening BI Accession Number(s): [id number] cc: Yashira Bethea MD EXAMINATION: MM SCREENING DIGITAL BREAST TOMOSYNTHESIS, BILATERAL CLINICAL INFORMATION: Screening. Asymptomatic. COMPARISON: Mammography: This study is compared with prior exams dating back to 2019. TECHNIQUE: Digital breast tomosynthesis is performed in both the craniocaudal and mediolateral oblique views along with computer-aided detection (CAD). Synthesized 2D images are generated from the tomosynthesis. FINDINGS: There are scattered areas of fibroglandular density (ACR BI-RADS breast composition Category b). There are no significant masses, abnormal calcifications, or other abnormalities. MM/MM tomosynthesis screening BI IMPRESSION: No mammographic evidence of malignancy. ASSESSMENT: BI-RADS BI-RADS 1 - Negative RECOMMENDATION: Routine annual mammography screening. 1 year F/U This examination should not preclude the clinical evaluation of a suspicious palpable abnormality. This patient's information was entered into a reminder system with a target due date for their next mammogram. Dictated By: Raegan Randhawa MD Signed By: <Electronically signed by Raegan Randhawa MD in OV> 08/21/232021 DD/ 1225 TD/TT: Sailing Instructor: Yashira Bethea MD IMG BI PROCEDURES Final Re sult * (ABNORMAL) Hm Colonoscopy (05/17/2023) Colonoscopy Abnormal( A) Normal Comment:tubular adenoma with [facility] Historical Provider HEALTH MAINTENANCE Final Result * Thinprep PAP, HPV mRNA E6/E7 RFX HPV 16,18/45, Chlamydia/N. Gonorrhoeae (12/18/2022 10:46 AM EDT) Clinical Information: UNABLE TO VISUALIZE CERVICAL OS D localbacont LMP: NONE GIVEN localbacont Prev. PAP: NONE GIVEN localbacont Prev. BX: NO localbacont SOURCE: None given [employer] Statement Of Adequacy: SATISFACTORY FOR EVALUATION Partially obscuring inflammation [employer] Interpretation/Re sult: [employer]avor Comment: Cytology Results: Negative for intraepithelial lesion or malignancy. Atrophic pattern; predominantly parabasal cells [employer]: [employer] Comment: CMG, CT(ASCP) CT screening location: [address] ??[address] Review [employer]: [employer]flavor Comment: SL, CT(ASCP) CT screening location: [address] ??[address] (Always Message) Que [employer]n Channel Comment: EXPLANATORY NOTE: The Pap is a screening test for cervical cancer. It is not a diagnostic test and is subject to false negative and false positive results. It is most reliable when a satisfactory sample, regularly obtained, is submitted with relevant clinical findings and history, and when the Pap result is evaluated along with historic and current clinical information. HPV nRNA E6/E7 Not Detected Not Detected [employer] Comment: Methodology: Secure Software Assessor-Mediated Amplification This assay detects E6/E7 viral messenger RNA (mRNA) from 14 high-risk HPV types (16,18,31,33,35,39,45,51,52,56,58,59,66,68). Cervical sources are required for HPV testing. If a vaginal source from a patient who has had a total hysterectomy with removal of cervix was submitted, please contact the testing laboratory for alternative testing options. For additional information, please refer to http://Flamsred.Temnos/faq/NYQ128h5 (This link if provided for information/ educational purposes only.) Chlamydia trachomatis RNA, TMA, Urogenital NOT DETECTED NOT DETECTED [facility] [employer] ([place]) Neisseria gonorrhoeae RNA, TMA, Urogenital NOT DETECTED NOT DETECTED [facility] [employer] ([place]) (Always Message) [email or web address] ([employer]) Comment: The analytical performance characteristics of this assay, when used to test SurePath(TM) specimens have been determined by [facility]. The modifications have not been cleared or approved by the FDA. This assay has been validated pursuant to the CLIA regulations and is used for clinical purposes. For additional information, please refer to https://Flamsred.Temnos/faq/JEZ354 (This link is being provided for information/ educational purposes only.) Swab 12/18/2022 10:4 6 AM EDT 12/21/2022 8:[address] [facility] Yashira Bethea MD LAB PATHOLOGY ORDERABLES F inal Result [facility] [address], [place] [address] [facility] [employer]) [address] [place] [address] * HIV-1/2 Antigen and Antibodies, Fourth Generation, with Reflexes (01/02/2020) Blood Venous blood specimen / Unknown 01/02/2020 Historical Provider LAB BLOOD ORDERABLES Dariana l Result * Hepatitis C Antibody with Reflex to HCV, RNA, Quantitative, Real-Time PCR (11/24/2013) Blood Venous blood specimen / Unknown 11/24/2013 Historical Provider LAB BLOOD ORDERABLES Dariana l Result from Last 3 Months or Most Recently Relevant to Health Maintenance Insurance [facility] STANDARD MEDICARE Advance Directives Documents on File Type Date Recorded Patient Podiatrist Assistant Expl anation Advance Directives and Living Will 03/30/2024 1:07 PM Health Care Proxy Care Teams Acid Concentrator Relationship Specialty Start Date End Date Neema, MD Yashira [address] [place] [phone] PCP - General Family Medicine 05/02/13 Nilda Alford, MattD [address] [place] [address] Pharmacist Internal Medicine 06/16/22
--- OUTSIDE RECORDS SUMMARY | 2024-08-28 12:44 | XMS_ITS | Encounter Summary ---
Author Organization [employer] Address [address] [facility] 7t [place] [address] Care Team Providers Care Press Officer Name Role Phone Yashira Bethea MD Primary Care Provider +- [phone] Nilda Alford PharmD Unavailable Reason for Visit * Reason Comments Med Refill Encounter Details Date Type Department Care Team (Late st Contact Info) Description 12/13/2023 Refill [facility] [address] [place], [place] [phone] Chasity Meyer MD 230 [place], [place] [phone] Social History Tobacco Use Types Packs/Day Years [...] Description 09/19/2024 11:30 AM EDT Medication Management [facility] [address] [place] [address] Nilda Alford, PharmD [address] [place] [address] 10/04/2024 2:15 PM EDT Office Visit [address] [address] Yashira Bethea MD [address] [place] [address] documented as of this encounter Goals Goal Patient Goal Type Associated Problems Recent Progress Patient-Stated? Author Blood Pressure < 140/90 Blood Pressure 128/74(2024 11:40 AM EST) No Tazs-Kathy Saucedosa, PharmD Hemoglobin A1c < 7 Result Component 7.9( 11:00 AM EST) No TazsKathy Truongsa, PharmD documented as of this encounter Visit Diagnoses Not on filedocumented in this encounter Care Teams Press Officer Relationship Specialty Start Date End Date Yashira Bethea MD [address] [place] [address] PCP - General Family Medicine 05/02/13 Nilda Alford, PharmD [address] [place] [address] Pharmacist Internal Medicine 06/16/22 documented as of this encounter
--- OUTSIDE RECORDS SUMMARY | 2024-08-28 12:44 | XMS_ITS | Encounter Summary ---
Author Organization [employer] Address [address] [facility] 7t [place] [address] Care Team Providers Care Pharmaceutical Specialty Representative Name Role Phone Yashira Bethea MD Primary Care Provider +- [phone] Nilda Alford PharmD Unavailable [phone] Encounter Details Date Type Department Care Team (Latest Contact Info) Description 08/22/2024 Travel Social History Tobacco Use Types Packs/Day Years [...] Medication Management [facility] [address] [place] [address] Nilda Alford, PharmD [address] [place] [address] 10/04/2024 2:15 PM EDT Office Visit [facility] [address] [place] [address] Yashira Bethea MD [address] [place] [address] documented as of this encounter Goals Goal Patient Goal Type Associated Problems Recent Progress Patient-Stated? Author Blood Pressure < 140/90 Blood Pressure 128/74(2024 11:40 AM EST) No Tazs-Delmi penn, Nilda, PharmD Hemoglobin A1c < 7 Result Component 7.9( 11:00 AM EST) No Tazs-Nilda Saucedo, PharmD documented as of this encounter Visit Diagnoses Not on filedocumented in this encounter Additional Health Concerns Assessment Noted Time PHQ-9 Depression Total Score: 0 03/27/20 24 10:39 AM EDT documented as of this encounter Care Teams Pharmaceutical Specialty Representative Relationship Specialty Start Date End Date Yashira Bethea MD 230 [place] [address] PCP - General Family Medicine 05/02/13 Nilda Alford PharmD [address] [place] [address] Pharmacist Internal Medicine 06/16/22 documented as of this encounter
--- OUTSIDE RECORDS SUMMARY | 2024-08-28 12:44 | XMS_ITS | Encounter Summary ---
Author Organization [facility] Address [address] [facility] 7t [place] [address] Care Team Providers Care Wax Ball Molder Name Role Phone Yashira Bethea MD Primary Care Provider Nilda Alford PharmD Unavailable Encounter Details Date Type Department Care Team (Late st Contact Info) Description 03/03/2023 Orders Only [facility] [address] [place] [address] Yashira Bethea MD 230 [place], [place] [phone] Mild intermittent asthma without complication (Primary Dx) Social History Tobacco Use Types Packs/Day Years [...] Description 09/19/2024 11:30 AM EDT Medication Management [facility] 230 [place], [place] [phone] Nilda Alford, PharmD [address] [place] [address] 10/04/2024 2:15 PM EDT Office Visit [facility] 230 [place] [address] Yashira Bethea MD [address] [place] [address] documented as of this encounter Goals Goal Patient Goal Type Associated Problems Recent Progress Patient-Stated? Author Blood Pressure < 140/90 Blood Pressure 128/74(2024 11:40 AM EST) No Nilda Toney PharmD Hemoglobin A1c < 7 Result Component 7.9( 11:00 AM EST) No Nilda Toney PharmD documented as of this encounter Visit Diagnoses Diagnosis Mild intermittent asthma without complication- Primary documented in this encounter Care Teams Wax Ball Molder Relationship Specialty Start Date End Date Yashira Bethea MD [address] [place] [address] PCP - General Family Medicine 05/02/13 Nilda Alford PharmD [address] [place] [address] Pharmacist Internal Medicine 06/16/22 documented as of this encounter
--- OUTSIDE RECORDS SUMMARY | 2024-08-28 12:44 | XMS_ITS | Encounter Summary ---
Author Organization [employer] [facility] Address [address] [facility] 7t [place] [address] Care Team Providers Care Appraiser Irrigation Tax Name Role Phone Yashira Bethea MD Primary Care Provider +- [phone] Nilda Alford PharmD Unavailable Encounter Details Date Type Department Care Team (Late st Contact Info) Description 07/29/2022 Abstract [facility] 230 [place] [address] Yashira Bethea MD 230 [place] [address] Social History Tobacco Use Types Packs/Day Years [...] suspected to have Coronavirus/COVID-19? No / Unsure 07/08/2022 9:24 AM EST documented as of this encounter Plan of Treatment Upcoming Encounters Date Type Department Care Team (Late st Contact Info) Description 09/19/2024 11:30 AM EDT Medication Management [facility] [place] [address] Nilda Alford PharmD [facility] [place] [address] 10/04/2024 2:15 PM EDT Office Visit [facility] [place] [address] Yashira Bethea MD [facility] [place] [address] documented as of this encounter Procedures Procedure Name Priority Date/Time Associated Diagnosis Comments MAMMOGRAPHY Routine 07/24/2022 documented in this encounter Results * Mammography (07/24/2022) Mammogram perfom Anatomical Region Laterality Modality Other Historical Provider HEALTH MAINTENANCE Final Result documented in this encounter Visit Diagnoses Not on filedocumented in this encounter Care Teams Appraiser Irrigation Tax Relationship Specialty Start Date End Date Yashira Bethea MD [facility] [place], [place] [phone] PCP - General Family Medicine 05/02/13 Nilda Alford, Phil [facility] [place], [place] [phone] Pharmacist Internal Medicine 06/16/22 documented as of this encounter
== END 2024-08-28 11:12 | disposition home or self-care (01) ==
LOC: HO.MAMMO 11:11
PROVIDERS: PCP Family Medicine; Visit Provider Family Medicine
DX: Z12.31 Encounter for screening mammogram for malignant neoplasm of breast (principal)
CPT/HCPCS: 77063; 77067

== ENCOUNTER → 2024-08-28 11:30 | Outpatient (BNV) | payer MEDICARE, MEDICAID, SELFPAY | PROVIDERS: PCP Family Medicine; Visit Provider Internal Medicine | DX: Z12.31 Encounter for screening mammogram for malignant neoplasm of breast (principal) | CPT/HCPCS: 77063; 77067 ==

== ENCOUNTER 2024-08-29 09:57 | Outpatient (REF) | payer MEDICARE, MEDICAID, SELFPAY ==
--- OUTSIDE RECORDS SUMMARY | 2024-08-29 11:29 | XMS_ITS | Encounter Summary ---
Author Organization [employer] [facility] Address [address] [facility] 7t [place] [address] Care Team Providers Care Crab Catcher Name Role Phone Yashira Bethae MD Primary Care Provider +- [phone] Nilda Alford PharmD Unavailable [phone] Encounter Details Date Type Department Care Team (Late st Contact Info) Description 07/29/2022 Abstract [facility] 230 [place] [address] Yashira Bethea MD [address] [place] [address] Social History Tobacco Use Types Packs/Day Years [...] Description 09/19/2024 11:30 AM EDT Medication Management [facility] [place] [address] Nilda Alford PharmD [facility] [place] [address] 10/04/2024 2:15 PM EDT Office Visit [facility] [place] [address] Yashira Bethea MD [facility] [place] [address] documented as of this encounter Procedures Procedure Name Priority Date/Time Associated Diagnosis Comments MAMMOGRAPHY Routine 07/24/2022 documented in this encounter Results * Mammography (07/24/2022) Mammogram perfom Anatomical Region Laterality Modality Other Historical Provider HEALTH MAINTENANCE Final Result documented in this encounter Visit Diagnoses Not on filedocumented in this encounter Care Teams Crab Catcher Relationship Specialty Start Date End Date Yashira Bethea MD [facility] [place], [place] [phone] PCP - General Family Medicine 05/02/13 Nilda Alford, Phil [facility] [place], [place] [phone] Pharmacist Internal Medicine 06/16/22 documented as of this encounter
--- OUTSIDE RECORDS SUMMARY | 2024-08-29 11:29 | XMS_ITS | Encounter Summary ---
Author Organization [email or web address] Address [address] [facility] 7t [place] [address] Care Team Providers Care Director Graphics Name Role Phone Yashira Bethea MD Primary Care Provider +- [phone] Nilda Alford PharmD Unavailable Reason for Visit * Reason Comments Med Refill Encounter Details Date Type Department Care Team (Late st Contact Info) Description 12/13/2023 Refill [facility] 230 [place], [place] [phone] Chasity Meyer MD 230 [place], [place] [phone] Social History Tobacco Use Types Packs/Day Years [...] Description 09/19/2024 11:30 AM EDT Medication Management [facility] [address] [place] [address] Nilda Alford, PharmD [address] [place] [address] 10/04/2024 2:15 PM EDT Office Visit [address] [address] Yashira Bethea MD [address] [place] [address] documented as of this encounter Goals Goal Patient Goal Type Associated Problems Recent Progress Patient-Stated? Author Blood Pressure < 140/90 Blood Pressure 128/74(2024 11:40 AM EST) No Tazs-Kathy Saucedosa, PharmD Hemoglobin A1c < 7 Result Component 7.9( 11:00 AM EST) No TazsKathy Truongsa, PharmD documented as of this encounter Visit Diagnoses Not on filedocumented in this encounter Care Teams Director Graphics Relationship Specialty Start Date End Date Yashira Bethea MD [address] [place] [address] PCP - General Family Medicine 05/02/13 Nilda Alford, PharmD 230 [place] [address] Pharmacist Internal Medicine 06/16/22 documented as of this encounter
--- OUTSIDE RECORDS SUMMARY | 2024-08-29 11:29 | XMS_ITS | Encounter Summary ---
Author Organization [facility] Address [address] [facility] 7t [place] [address] Care Team Providers Care Asphalt Smoother Name Role Phone Yashira Bethea MD Primary Care Provider Nilda Alford PharmD Unavailable Encounter Details Date Type Department Care Team (Late st Contact Info) Description 03/03/2023 Orders Only [facility] [address] [place] [address] Yashira Bethea MD 230 [place], [place] [phone] Mild intermittent asthma without complication (Primary Dx) [...] Description 09/19/2024 11:30 AM EDT Medication Management [facility] 230 [place], [place] [phone] Nilda Alford, PharmD 230 [place] [address] 10/04/2024 2:15 PM EDT Office Visit [facility] [address] [place] [address] Yashira Bethea MD [address] [place] [address] documented as of this encounter Goals Goal [...] Primary documented in this encounter Care Teams Asphalt Smoother Relationship Specialty Start Date End Date Yashira Bethea MD [address] [place] [address] PCP - General Family Medicine 05/02/13 Nilda Alford PharmD [address] [place] [address] Pharmacist Internal Medicine 06/16/22 documented as of this encounter
--- OUTSIDE RECORDS SUMMARY | 2024-08-29 11:29 | XMS_ITS | Clinical Summary ---
Author Organization [employer] Address [address] [facility] 7t [place] [address] Care Team Providers Care Bar Host/Hostess Name Role Phone Yashira Bethea MD Primary Care Provider +- [phone] Nilda Alford PharmD Unavailable Allergies Active Allergy Reactions Criticality Noted Date Comments Shellfish Allergy 09/24/2022 Protein Unknown 01/31/2023 Medications nystatin (Mycostatin) 812103 UNIT/GM powder apply by topical route 2 [...] miscIndications: Insulin dependent type 2 diabetes mellitus ([facility]/HCC) USE DIRECTED FOUR TIMES DAILY 100 each [...] stripIndications :Type 2 diabetes mellitus without complications ([facility]) TEST BLOOD SUGAR THREE TIMES DAILY 100 [...] complication, with long-term current use of insulin ([facility]) Inject 0.5 mL (3 mg) under the [...] 2 diabetes mellitus without complication, unspecified whether senior living insulin use ([facility]) Inject subcutaneously 64 units once daily 025 Active insulin aspart (NovoLOG FLEXPEN) 100 UNIT/ML penIndications:T ype 2 diabetes mellitus without complication, unspecified whether senior living insulin use ([facility]) Inject subcutaneously 10 units with breakfast, 14 units with lunch and 26 units with dinner. Do not use if skipping the meal. 025 Active triamcinolone (Kenalog) 0.1 % ointment APPLY TO THE AFFECTED AREA TWICE DAILY 2024 Discontinued(M ed list cleanup (will not trigger notification to Pharmacy)) insulin glargine (Lantus SoloStar) 100 UNIT/ML penIndications:T ype 2 diabetes mellitus without complication, unspecified whether senior living insulin use ([facility]) INJECT 60 UNITS SUBCUTANEOUSLY ONCE DAILY 024 2024 Discontinued(F ormulary change) insulin lispro (HumaLOG KWIKPEN) 100 UNIT/ML injectionIndicat ions:Type 2 diabetes mellitus without complications ([facility]) INJECT 10 UNITS SUBCUTANEOUSLY BEFORE BREAKFAST, 14 [...] 2 diabetes mellitus without complication, unspecified whether agency development manager insulin use ([facility]) Inject subcutaneously 62 units once daily 15 mL 3 025 2024 Discontinued insulin aspart (NovoLOG FLEXPEN) 100 UNIT/ML penIndications:T ype 2 diabetes mellitus without complication, unspecified whether senior living insulin use ([facility]) Inject subcutaneously 10 units with breakfast, 14 [...] will request note 12/18/2022. -dental home is [facility], follow up encouraged today. Assessment & Plan (03/27/2024 8:13 PM EDT): -next physical exam due after 04/19/2024 -eye care facilitated by [facility], last 05/2022, will request note 12/18/2022. -dental home is [facility], follow up encouraged today. Assessment & Plan (04/19/2023 9:56 AM EDT): -next physical exam due after 04/19/2024 -eye care facilitated by [facility], last 05/2022, will request note 12/18/2022. -dental home is [facility], follow up encouraged today. Assessment & Plan (12/18/2022 10:15 AM EDT): -next physical exam due after -eye care facilitated by [facility], last 05/2022, will request note 12/18/2022. -dental home is [facility], follow up encouraged today. Primary hypertension 10/01/2022 [...] 02/16/2018 -Tubular a in repeat colonoscopy with [facility] 05/17/23 Assessment & Plan (04/19/2023 10:09 AM EDT): -last colonscopy 02/16/2018 -Next colonoscopy 04/2023. -Referral done 04/19/2023 Assessment & Plan (12/18/2022 10:28 AM EDT): -last colonscopy 02/16/2018 -Next colonoscopy 04/2023. Assessment & Plan (10/01/2022 1:28 PM EDT): -last colonscopy 02/16/2018 -Pt has an upcoming GI appointment. Assessment & Plan (07/08/2022 10:05 AM EST): -Last colonscopy 02/16/2018 -Pt referred to [facility] 07/08/2022 Cardiomyopathy 10/28/2018 Overview (03/27/2024): [...] increased to 3mg once weekly by [facility] 06/01/24 -Brown/Arb: lisinopril 10mg -Statin therapy: pravastatin 40mg -Diabetic eye exam: [facility] in [facility], last 06/07/2019 -Diabetic foot exam: 03/27/24 [...] -Diabetic eye exam: [facility] in [facility], last 06/07/2019 -Diabetic foot exam: 03/27/24 [...] -Diabetic eye exam: [facility] in [facility], last 06/07/2019-Diabetic foot exam: Done 10/01/2022. [...] -Diabetic eye exam: [facility] in [facility], last 06/07/2019-Diabetic foot exam: Done 10/01/2022. [...] therapy: provastatin 40mg -Diabetic eye exam: At [place], Pt will call for follow up. -Diabetic foot exam: Done 10/01/2022. -Continue lifestyle modifications -Continue current medications Resolved Problems Problem Noted Date Diagnosed Date Resolved Date Postmenopausal 03/24/2024 03/27/2024 Overview (03/24/2024): Final Menstrual Period: Symptoms: {Menopause s/s:55124} Risk factors for osteoporosis: {sjbosteoporosisriskfactors:02247} -USPTF recommends DEXA be preformed on all [...] 07/25/2024 Travel 07/21/2024 Refill [facility] [address] [place] [address] Yashira Bethea MD Mild intermittent asthma without complication 07/10/2024 Refill [facility] [address] [place] [address] Chasity Meyer MD Acquired hypothyroidism 07/02/2024 Refill [facility] [address] [place] [address] Nilda Alford PharmD Type 2 diabetes mellitus without complications ([facility]) 06/01/2024 Travel 05/31/2024 Refill [facility] [address] [place] [address] Yashira Bethea MD Cardiomyopathy, unspecified type ([facility]) from Last 3 Months Immunizations Name Administration [...] Description 09/19/2024 11:30 AM EDT Medication Management [facility]INE [address] [place] [address] Nilda Alford, PharmD [address] [place] [address] 10/04/2024 2:15 PM EDT Office Visit [facility] [address] [place] [address] Yashira Bethea MD [address] [place] [address] Health Maintenance Due Date Last Done Comments [...] 2 diabetes mellitus without complication, unspecified whether agency development manager insulin use ([facility]) ALBUMIN, RANDOM URINE W/CREATININE Routine 02/02/2024 10:47 [...] 10:47 AM EDT) Creatinine, Urine 158.61 mg/dL [facility] Microalbumin Urine 57.0 mg/L [facility] Microalbum Creatinine Ratio Ur 35.9(H) <30 ug/mg cr [facility] Comment:Albumin/Creatinine R atio Reference Ranges: Normal: < 30 ug/mg creatinine Microalbuminuria: 30 - 300 ug/mg creatinineClinical Albuminuria: > 300 ug/mg creatinine 02/02/2024 10:4 7 AM EDT 02/02/2024 11:29 AM EDT Yashira Bethea MD LAB URINE ORDERABLES Final Result [facility] [address] [place] [phone] * Lipid Panel, Standard (02/02/2024 10:47 AM EDT) Triglycerides 102 <150 mg/dL [facility] Comment:Desirable Triglyceri de: less than 150 mg/dLBorderline High Triglyceride 150-199 mg/dLHigh Triglyceride: 200-499 mg/dLVery High Triglyceride: greater than or equal to 5OO mg/dL Cholesterol 137 <200 mg/dL [facility] Comment:Desirable Cholestero l: less than 200 mg/dLBorderline High Cholesterol: 200-239 mg/dLHigh Cholesterol: greater than 239 mg/dL LDL Cholesterol Calculated 61 <100 mg/dL [facility] Comment:Desirable LDL: less than 100 mg/dLNear Optimal/Above Optimal LDL: 110- 129 mg/dLBorderline High LDL: 130-159 mg/dLHigh LDL: 160-189 mg/dLVery High LDL: greater than or equal to 190 mg/dL HDL Cholesterol 56 >40 mg/dL [facility] Comment:Desirable HDL: great er than 40 mg/dL Note: This HDL assay may give artificially low results in patients with liver disease. 02/02/2024 10:4 7 AM EDT 02/02/2024 11:33 AM EDT us Yashira Bethea MD LAB BLOOD ORDERABLES Final Result [facility] [address] [place] [phone] * BI Mammogram Screening Tomosynthesis Bilateral (07/30/2023 12:25 PM EST) Anatomical Region Laterality Modality Breast Bilateral Mammography 07/30/2023 12:2 5 PM EST Narrative 08/21/2023 8:26 PM EST ? [facility] ? [address] ?[place] [address] ? Mammography Report ? Signed ? Patient: Ignacio,Onaida ?MR#: [id number] ? : 1960 ?Acct:[id number] ? Age/Sex: 62 / F ?ADM Date: 02/09/24 ? Loc: HO.MAMMO ? Attending Dr: Yashira Bethea MD ? Ordering Physician: Yashira Bethea MD ?Results: 1N ?? egative ? Date of Service: 07/30/23 ?Follow Up: 1 Year From Orig ?? inal Mammogram ? Procedure(s): MM tomosynthesis screening BI ?? Accession Number(s): [id number] ? cc: Yashira Bethea MD ? EXAMINATION: [...] 08/21/232021 ? DD/ 1225 ? TD/TT: ? Train Driver: ? Procedure Note Donotuseinterpreter, Image - 08/21/2023 [facility] [address] [place] [address] Mammography Report Signed Patient: Benoit Ignacio#: [id number] : 2Acct:[id number] Age/Sex: 62 / FADM Date: 07/30/23 Loc: HO.MAMMO Attending Dr: Yashira Bethea MD Ordering Physician: Yashira Bethea MDResults: 1N egative Date of Service: 07/30/23Follow Up: 1 Year From Orig inal Mammogram Procedure(s): MM tomosynthesis screening BI Accession Number(s): [id number] cc: Yashira Bethea MD EXAMINATION: MM SCREENING [...] MD in OV> 08/21/232021 DD/ 1225 TD/TT: Train Driver: Yashira Bethea MD IMG BI PROCEDURES Final Re sult * (ABNORMAL) Hm Colonoscopy (05/17/2023) Colonoscopy Abnormal( A) Normal Comment:tubular adenoma with [facility] Historical Provider HEALTH MAINTENANCE Final Result * Thinprep PAP, HPV mRNA E6/E7 RFX HPV 16,18/45, Chlamydia/N. Gonorrhoeae (12/18/2022 10:46 AM EDT) Clinical Information: UNABLE TO VISUALIZE CERVICAL OS D [employer] LMP: NONE GIVEN [employer] Prev. PAP: NONE GIVEN [employer] Prev. BX: NO [employer] SOURCE: None given [employer] Statement Of Adequacy: SATISFACTORY FOR EVALUATION Partially obscuring inflammation [employer] Interpretation/Re sult: [employer] Comment: Cytology Results: Negative for intraepithelial lesion or malignancy. Atrophic pattern; predominantly parabasal cells Compo Caster: [employer] Comment: CMG, CT(ASCP) CT screening location: [address] ??[address] Review Compo Caster: [employer] Comment: SL, CT(ASCP) CT screening location: [address] ??[address] (Always Message) [employer] Comment: EXPLANATORY NOTE: The Pap is a [...] HPV nRNA E6/E7 Not Detected Not Detected [employer] Comment: Methodology: Supervisor Volunteer Services-Mediated Amplification This assay detects E6/E7 viral messenger RNA (mRNA) from 14 high-risk HPV types (16,18,31,33,35,39,45,51,52,56,58,59,66,68). Cervical sources are required for HPV testing. If a vaginal source from a patient who has had a total hysterectomy with removal of cervix was submitted, please contact the testing laboratory for alternative testing options. For additional information, please refer to http://[employer]CATASYS/faq/FKU682t5 (This link if provided for information/ educational purposes only.) Chlamydia trachomatis RNA, TMA, Urogenital NOT DETECTED NOT DETECTED [facility] [place] [facility] Neisseria gonorrhoeae RNA, TMA, Urogenital NOT DETECTED NOT DETECTED [facility] [place] [employer] (Always Message) [facility] [employer] [place] [facility] Comment: The analytical performance characteristics of this assay, when used to test SurePath(TM) specimens have been determined by [facility]. The modifications have not been cleared or approved by the FDA. This assay has been validated pursuant to the CLIA regulations and is used for clinical purposes. For additional information, please refer to https://[employer]CATASYS/faq/MIO063 (This link is being provided for information/ educational purposes only.) Swab 12/18/2022 10:4 6 AM EDT 12/21/2022 8:36 AM EDT Result [facility] Yashira Bethea MD LAB PATHOLOGY ORDERABLES F inal Result [facility] [address], [place] [address] [facility] [place] [facility] [address] [place] [address] * HIV-1/2 Antigen and Antibodies, Fourth Generation, [...] Most Recently Relevant to Health Maintenance Insurance [facility] STANDARD MEDICARE Advance Directives Documents on File Type Date Recorded Patient Vice President Pharmacy Expl anation Advance Directives and Living Will 03/30/2024 1:07 PM Health Care Proxy Care Teams Bar Host/Hostess Relationship Specialty Start Date End Date Neema, MD Yashira [address] [place] [phone] PCP - General Family Medicine 05/02/13 Nilda Alford, MattD [address] [place] [address] Pharmacist Internal Medicine 06/16/22
--- OUTSIDE RECORDS SUMMARY | 2024-08-29 11:29 | XMS_ITS | Encounter Summary ---
Author Organization [employer] Address [address] [facility] 7t [place] [address] Care Team Providers Care Skin Tanner Name Role Phone Yashira Bethea MD Primary Care Provider +- [phone] Nilda Alford PharmD Unavailable Encounter Details Date Type Department Care Team (Late st Contact Info) Description 08/18/2023 Orders Only [facility] [address] [place] [address] Yashira Bethea MD [address] [place], [place] [phone] Social History Tobacco Use Types Packs/Day Years [...] Description 09/19/2024 11:30 AM EDT Medication Management [facility] [address] [place] [address] Nilda Alford, PharmD [address] [place] [address] 10/04/2024 2:15 PM EDT Office Visit [facility] [address] [place] [address] Yashira Bethea MD [address] [place] [address] documented as of this encounter Goals Goal Patient Goal Type Associated Problems Recent Progress Patient-Stated? Author Blood Pressure < 140/90 Blood Pressure 128/74(2024 11:40 AM EST) No Tazs-Kathy Saucedosa, PharmD Hemoglobin A1c < 7 Result Component 7.9( 11:00 AM EST) No Tazs-Ejl fili, Nilda, PharmD documented as of this encounter Visit Diagnoses Not on filedocumented in this encounter Care Teams Skin Tanner Relationship Specialty Start Date End Date Yashira Bethea MD [address] [place] [address] PCP - General Family Medicine 05/02/13 Nilda Alford, PharmD [address] [place] [address] Pharmacist Internal Medicine 06/16/22 documented as of this encounter
--- OUTSIDE RECORDS SUMMARY | 2024-08-29 11:29 | XMS_ITS | Encounter Summary ---
Author Organization [email or web address] Address [address] [facility] 7t [place] [address] Care Team Providers Care Men'S Basketball Coach Name Role Phone Yashira Bethea MD Primary Care Provider +- [phone] Nilda Alford PharmD Unavailable [phone] Encounter Details Date Type Department Care Team [...] Description 09/19/2024 11:30 AM EDT Medication Management [facility] [address] [place] [address] Nilda Alford, PharmD [address] [place] [address] 10/04/2024 2:15 PM EDT Office Visit [facility] [address] [place] [address] Yashira Bethea MD [address] [place] [address] documented as of this encounter Goals Goal [...] documented as of this encounter Care Teams Men'S Basketball Coach Relationship Specialty Start Date End Date Yashira Bethea MD [address] [place] [address] PCP - General Family Medicine 05/02/13 Nilda Alford PharmD [address] [place] [address] Pharmacist Internal Medicine 06/16/22 documented as of this encounter
--- OUTSIDE RECORDS SUMMARY | 2024-08-29 11:29 | XMS_ITS | Encounter Summary ---
Author Organization [facility] Address [address] [facility] 7t [place] [address] Care Team Providers Care Speeder Operator Name Role Phone Yashira Bethea MD Primary Care Provider [phone]- [phone] Nilda Alford PharmD Unavailable Reason for Visit * Reason Comments Med Refill Encounter Details Date Type Department Care Team (Late st Contact Info) Description 10/14/2022 Refill [facility] [address] [place] [address] Yashira Bethea MD [address] [place], [place] [phone] Social History Tobacco Use Types Packs/Day Years [...] Description 09/19/2024 11:30 AM EDT Medication Management [facility] [address] [place] [address] Nilda Alford PharmD [address] [place] [address] 10/04/2024 2:15 PM EDT Office Visit [facility] [address] [place] [address] Yashira Bethea MD [address] [place] [address] documented as of this encounter Goals Goal Patient Goal Type Associated Problems Recent Progress Patient-Stated? Author Hemoglobin A1c < 7 Result Component 7.9(07/25/2024 11:00 AM EST) No Nilda Alford PharmD documented as of this encounter Visit Diagnoses Not on filedocumented in this encounter Care Teams Speeder Operator Relationship Specialty Start Date End Date Yashira Bethea MD [address] [place] [address] PCP - General Family Medicine 05/02/13 Nilda Alford PharmD [address] [place] [address] Pharmacist Internal Medicine 06/16/22 documented as of this encounter
--- OUTSIDE RECORDS SUMMARY | 2024-08-29 11:29 | XMS_ITS | Encounter Summary ---
Author Organization [employer] [facility] Address [address] [facility] 7t [place] [address] Care Team Providers Care Windows Migration Technician Name Role Phone Yashira Bethea MD Primary Care Provider +- [phone] Nilda Alford PharmD Unavailable [phone] Reason for Referral * Consultation (Routine) - Pending Review Specialty Diagnoses / Procedures Referred By Arielle proctor Referred To Contact Pharmacy Diagnoses Primary hypertension Insulin dependent type 2 diabetes mellitus (CMS/HCC) Yashira Bethea MD [address] [place] [address] Phone: tel: fax: Referral ID Status Reason Start Date Expiration Date Visits Requested Visits Authorized [id number] Pending Review Consult and Treat 04/27/2024 04/27/2025 6 6 Encounter Details Date Type Department Care Team (Late st Contact Info) Description 04/27/2024 Orders Only [facility]INE [address] [place] [address] Yashira Bethea MD [address] [place] [address] [phone] Primary hypertension (Primary Dx); Insulin dependent type [...] 09/19/2024 11:30 AM EDT Medication Management [facility] [address] [place] [address] Nilda Alford, PharmD [address] [place] [address] 10/04/2024 2:15 PM EDT Office Visit [facility] [address] [place] [address] Yashira Bethea MD [address] [place] [address] Scheduled Referrals Name Type Priority Associated Diagnoses [...] documented as of this encounter Care Teams Windows Migration Technician Relationship Specialty Start Date End Date Yashira Bethea MD [address] [place] [address] PCP - General Family Medicine 05/02/13 Nilda Alford PharmD [address] [place] [address] Pharmacist Internal Medicine 06/16/22 documented as of this encounter
[2024-08-29 11:42] LABS: MANUAL DIFF FLAG NO
[2024-08-29 11:45] LABS: Basophils Percent Auto 0.5 % (0-2); Eosinophils Absolute Auto 0.2 X10*3/uL (0.0-0.4); Eosinophils Percent Auto 2.5 % (0-4); Hematocrit 37.8 % (37.0-47.0); Hemoglobin 12.1 g/dl (12.0-16.0); Imm Gran Abs Auto 0.02 X10*3/uL (0.00-0.03); Imm Gran Pct Auto 0.3 % (0.0-0.4); Lymphocytes Absolute Auto 2.2 X10*3/uL (1.2-4.9); Lymphocytes Percent Auto 27.6 % (20-40); Mean Corpuscular Hemoglobin 25.6 pg (27.0-33.0); Mean Corpuscular Volume 80.1 fL (80.0-98.0); Mean Platelet Volume 9.9 fL (9.4-12.3); Monocytes Absolute Auto 0.6 X10*3/uL (0.1-1.2); Monocytes Percent Auto 7.5 % (2-11); Neutrophils Absolute Auto 4.9 x10*3/uL (2.0-8.3); Neutrophils Percent Auto 61.6 % (45-73); Platelet Count 225 X10*3/uL (160-400); Red Blood Count 4.72 X10*6/uL (4.20-5.50); Red Cell Distribution Width 15.2 % (11.0-16.0); White Blood Count 7.9 X10*3/uL (4.8-10.8)
[2024-08-29 12:29] LABS: HBS Num1 8.21 mIU/mL (0-7.99); HBc Num1 0.07 S/CO (0.00-0.79); HBsAGNum1 0.28 S/CO (0.00-0.99); Hepatitis A Antibody IgM 0.43 Index (0-0.79); Hepatitis B Core Antibody Nonreactive (Nonreactive); Hepatitis B Surface Antigen Negative (Negative); ~HepC Num1 0.09 S/CO (0.00-0.79); ~Hepatitis A Antibody IgM Nonreactive (Nonreactive); ~Hepatitis C Antibody Nonreactive (Nonreactive)
[2024-08-29 12:42] LABS: Alanine Aminotransferase 33 U/L (0-31); Albumin Level 3.7 g/dL (3.5-5.0); Alkaline Phosphatase 124 U/L (39-117); Anion Gap 11 (12-20); Aspartate Amino Transferase 46 U/L (5-31); Bilirubin Direct 0.2 mg/dL (0.0-0.5); Bilirubin Total 0.6 mg/dL (0.0-1.0); Blood Urea Nitrogen 16 mg/dL (9-16); Calcium 8.7 mg/dL (8.4-10.2); Carbon Dioxide 24 mmol/L (22-29); Chloride 107 mmol/L (96-108); Estimated Glomerular Filt Rate > 60; Glucose Random 151 mg/dL (60-115); Potassium 3.9 mmol/L (3.3-5.1); Sodium 138 mmol/L (135-145); TSH reflex Free T4 4.02 uIU/mL (0.32-4.0); Total Protein 8.3 g/dL (6.5-8.0)
[2024-08-29 14:25] LABS: HBS Num2 8.43 mIU/mL (0-7.99)
[2024-08-29 14:26] LABS: HBS Num3 7.86 mIU/mL (0-7.99); ~Hepatitis B Surface Antibody GRAYZONE (Nonreactive)
[2024-08-29 14:31] LABS: Free T4 (Free Thyroxine) 1.05 ng/dL (0.71-1.85)
[2024-08-30 11:39] LABS: Alpha Fetoprotein 3.8 ng/mL
== END 2024-08-29 09:58 | disposition home or self-care (01) ==
LOC: HO.HHCL 09:57
PROVIDERS: Visit Provider Family Medicine
DX: E11.9 Type 2 diabetes mellitus without complications (principal); R74.01 Elevation of levels of liver transaminase levels; R94.5 Abnormal results of liver function studies; K76.9 Liver disease, unspecified; K74.00 Hepatic fibrosis, unspecified; E03.9 Hypothyroidism, unspecified; Z11.59 Encounter for screening for other viral diseases; I10 Essential (primary) hypertension; Z72.89 Other problems related to lifestyle
CPT/HCPCS: 36415; 80048; 80076; 82105; 84439; 84443; 85025; 86704; 86706; 86709; 86803; 87340

== ENCOUNTER 2024-10-26 10:56 | Outpatient (REF) | payer MEDICARE, MEDICAID, SELFPAY ==
--- NOTE | ~2024-10-26 | XR_ITS ---
EXAMINATION: XR SHOULDER, RIGHT CLINICAL INFORMATION: bilateral shoulder pain COMPARISON: None available. TECHNIQUE: AP external rotation, Grashey, scapular Y, and axillary views of the right shoulder. FINDINGS: Sclerosis along the articular surfaces of the acromioclavicular joint and sclerosis of the greater tuberosity right humerus. No acute cortical disruption or malalignment. No lytic or blastic lesions. XR/XR shoulder RT min 2V IMPRESSION: Degenerative changes, and chronic clavicular joint and greater tuberosity. Electronically signed by: Jon Mcclain MD 10/26/2024 12:36 PM EDT
--- NOTE | ~2024-10-26 | XR_ITS ---
EXAMINATION: XR SHOULDER, LEFT CLINICAL INFORMATION: chornic bilateral shoulder pain COMPARISON: None available. TECHNIQUE: AP external rotation, Grashey, scapular Y, and axillary views of the left shoulder. FINDINGS: No acute cortical disruption the Y projection demonstrates a elevated clavicle with respect to the scapula. No lytic or blastic lesions. No metallic or radiopaque foreign body. XR/XR shoulder LT min 2V IMPRESSION: Probable old/chronic subluxation versus artifact, acromioclavicular joint. Electronically signed by: Jon Mcclain MD 10/26/2024 12:37 PM EDT
--- OUTSIDE RECORDS SUMMARY | 2024-10-26 12:29 | XMS_ITS | Encounter Summary ---
Author Organization [employer] Address 75 [facility] 7t [place] [address] Care Team Providers Care Hand Rounder Name Role Phone Yashira Bethea MD Primary Care Provider +- [phone] Nilda Alford PharmD Unavailable [phone] Carina Malin Unavailable [phone] Reason for Visit * Reason Comments Med Refill Encounter Details Date Type Department Care Team (Late st Contact Info) Description 10/07/2024 Refill [facility] [address] [place], [place] [phone] Yashira Bethea MD [address] [place], [place] [phone] Mild intermittent asthma without complication Social History Tobacco Use Types Packs/Day Years [...] the past 12 months, has t he [employer], gas, oil or water [employer] threatened to shut off services in your [...] Care Team (Late st Contact Info) Description 12/01/2024 9:00 AM EDT Medication Management [facility] [address] [place] [address] Nilda Alford PharmD [address] [place] [address] 02/05/2025 10:30 AM EDT Office Visit [facility] [address] [place] [address] Ruben, Lia, OD [address] [place] [address] documented as of this encounter Goals Goal Patient Goal Type Associated Problems Recent Progress Patient-Stated? Author Blood Pressure < 140/90 Blood Pressure 132/80(2024 9:50 AM EDT) No Nilda Toney PharmD Hemoglobin A1c < 7 Result Component 7.9( 5 11:00 AM EST) No Nilda Toney, PharmD documented as of this encounter Visit Diagnoses Diagnosis Mild intermittent asthma without complication documented in this encounter Additional Health Concerns Assessment Noted Time PHQ-9 Depression Total Score: 0 03/27/20 24 10:39 AM EDT documented as of this encounter Care Teams Hand Rounder Relationship Specialty Start Date End Date Yashira Bethea MD [address] [place] [address] PCP - General Family Medicine 05/02/13 Nilda Alford, PharmD [address] [place] [address] Pharmacist Internal Medicine 06/16/22 Carina Malin [address] [address] Gastroenterology 10/04/24 documented as of this encounter
--- OUTSIDE RECORDS SUMMARY | 2024-10-26 12:29 | XMS_ITS | Encounter Summary ---
Author Organization [employer] Address [address] [facility] 7t [place] [address] Care Team Providers Care Teacher Ballet Name Role Phone Yashira Bethea MD Primary Care Provider [phone] Nilda Alford PharmD Unavailable Carina Malin Unavailable [phone] Encounter Details Date Type Department Care Team (Late st Contact Info) Description 07/29/2022 Abstract [facility] [address] [place], [place] [phone] Yashira Bethea MD [address] [place], [place] [phone] Social History Tobacco Use Types Packs/Day Years [...] Description 12/01/2024 9:00 AM EDT Medication Management [facility] [address] [place] [address] Nilda Alford PharmD [address] [place] [address] 02/05/2025 10:30 AM EDT Office Visit [facility] [address] [place] [address] Ruben, Lia, OD [address] [place] [address] documented as of this encounter Procedures Procedure Name Priority Date/Time Associated Diagnosis Comments MAMMOGRAPHY Routine 07/24/2022 documented in this encounter Results * Mammography (07/24/2022) Mammogram perfom Anatomical Region Laterality Modality Other Historical Provider HEALTH MAINTENANCE Final Result documented in this encounter Visit Diagnoses Not on filedocumented in this encounter Care Teams Teacher Ballet Relationship Specialty Start Date End Date Yashira Bethea MD [address] [place] [address] PCP - General Family Medicine 05/02/13 Nilda Alford, MattD [address] [place] [address] Pharmacist Internal Medicine 06/16/22 Carina Malin [address] [place] [address] Gastroenterology 10/04/24 documented as of this encounter
--- OUTSIDE RECORDS SUMMARY | 2024-10-26 12:29 | XMS_ITS | Encounter Summary ---
Author Organization [employer] Address [address] [facility] 7t [place] [address] Care Team Providers Care Churner Name Role Phone Yashira Bethea MD Primary Care Provider +- [phone] Nilda Alford PharmD Unavailable Carina Malin Unavailable [phone] Reason for Visit * Reason Comments Med Refill Encounter Details Date Type Department Care Team (Late st Contact Info) Description 10/22/2024 Refill [facility] [address] [place], [place] [phone] Yashira Bethea MD [address] [place], [place] [phone] Seasonal allergies Social History Tobacco Use Types Packs/Day Years [...] Description 12/01/2024 9:00 AM EDT Medication Management [facility] [address] [place] [address] Nilda Alford PharmD [address] [place] [address] 02/05/2025 10:30 AM EDT Office Visit [facility] [address] [place] [address] Ruben, Lia, OD 230 [place] [address] documented as of this encounter Goals Goal Patient Goal Type Associated Problems Recent Progress Patient-Stated? Author Blood Pressure < 140/90 Blood Pressure 132/80(2024 9:50 AM EDT) No Nilda Toney PharmD Hemoglobin A1c < 7 Result Component 7.9(02/04/202 5 11:00 AM EST) No Nilda Toney PharmD documented as of this encounter Visit Diagnoses Diagnosis Seasonal allergies Allergic rhinitis, cause unspecified documented in this encounter Additional Health Concerns Assessment Noted Time PHQ-9 Depression Total Score: 0 03/27/20 24 10:39 AM EDT documented as of this encounter Care Teams Churner Relationship Specialty Start Date End Date Yashira Bethea MD [address] [place] [address] PCP - General Family Medicine 05/02/13 Nilda Alford, PharmD [address] [place] [address] Pharmacist Internal Medicine 06/16/22 Carina Malin [address] [address] Gastroenterology 10/04/24 documented as of this encounter
--- OUTSIDE RECORDS SUMMARY | 2024-10-26 12:30 | XMS_ITS | Encounter Summary ---
Author Organization [employer] Address 75 [facility] 7t [place] [address] Care Team Providers Care Supervisor Histology Name Role Phone Yashira Bethea MD Primary Care Provider [phone] Nilda Alford PharmD Unavailable Carina [place] Unavailable [phone] Reason for Visit * Reason Comments Med Refill Encounter Details Date Type Department Care Team (Late st Contact Info) Description 10/14/2022 Refill [facility] [address] [place], [place] [phone] Yashira Bethea MD [address] [place], [place] [phone] Social History Tobacco Use Types Packs/Day Years [...] Description 12/01/2024 9:00 AM EDT Medication Management [facility] [address] [place] [address] Nilda Alford PharmD [address] [place] [address] 02/05/2025 10:30 AM EDT Office Visit [facility] [address] [place] [address] Ruben, Lia, OD 230 [place] [address] documented as of this encounter Goals Goal Patient Goal Type Associated Problems Recent Progress Patient-Stated? Author Hemoglobin A1c < 7 Result Component 7.9(07/25/2024 11:00 AM EST) No Nilda Alford PharmD documented as of this encounter Visit Diagnoses Not on filedocumented in this encounter Care Teams Supervisor Histology Relationship Specialty Start Date End Date Yashira Bethea MD [address] [place] [address] PCP - General Family Medicine 05/02/13 Nilda Alford PharmD [address] [place] [address] Pharmacist Internal Medicine 06/16/22 Carina Malin [address] [address] Gastroenterology 10/04/24 documented as of this encounter
--- OUTSIDE RECORDS SUMMARY | 2024-10-26 12:30 | XMS_ITS | Encounter Summary ---
Author Organization [employer] Address 75 [facility] 7t [place] [address] Care Team Providers Care Clinical Research Technician Name Role Phone Yashira Bethea MD Primary Care Provider [phone]- [phone] Nilda Alford PharmD Unavailable Carina [place] Unavailable [phone] Reason for Visit * Reason Comments Med Refill Encounter Details Date Type Department Care Team (Late st Contact Info) Description 12/13/2023 Refill [facility] [address] [place], [place] [phone] Chastiy Meyer MD [address] [place], [place] [phone] Social History Tobacco Use Types Packs/Day Years [...] Description 12/01/2024 9:00 AM EDT Medication Management [facility] [address] [place] [address] Nilda Alford, PharmD [address] [place] [address] 02/05/2025 10:30 AM EDT Office Visit [facility] OPT[facility] [address] [place] [address] Ruben, Lia, OD 230 [place] [address] documented as of this encounter Goals Goal Patient Goal Type Associated Problems Recent Progress Patient-Stated? Author Blood Pressure < 140/90 Blood Pressure 132/80(2024 9:50 AM EDT) No Nilda Toney, PharmD Hemoglobin A1c < 7 Result Component 7.9( 11:00 AM EST) No Nilda Toney, PharmD documented as of this encounter Visit Diagnoses Not on filedocumented in this encounter Care Teams Clinical Research Technician Relationship Specialty Start Date End Date Yashira Bethea MD [address] [place] [address] PCP - General Family Medicine 05/02/13 Nilda Alford PharmD [address] [place] [address] Pharmacist Internal Medicine 06/16/22 Carina Malin [address] [address] Gastroenterology 10/04/24 documented as of this encounter
--- OUTSIDE RECORDS SUMMARY | 2024-10-26 12:30 | XMS_ITS | Encounter Summary ---
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) Yashira Bethea MD [address] [place] [address] Phone: tel: fax: Referral ID Status Reason Start Date Expiration Date Visits Requested Visits Authorized [id number] Pending Review Consult and Treat 04/27/2024 04/27/2025 6 6 Encounter Details Date Type Department Care Team (Late st Contact Info) Description 04/27/2024 Orders Only [facility] [address] [place] [address] [phone] Yashira Bethea MD [address] [place], [place] [phone] Primary hypertension (Primary Dx); Insulin dependent type [...] Description 12/01/2024 9:00 AM EDT Medication Management [facility] [address] [place] [address] Nilda Alford, PharmD [address] [place], [place] [phone] 02/05/2025 10:30 AM EDT Office Visit [facility] [address] [place] [address] Lia Miranda, OD 230 [place] [address] Scheduled Referrals Name Type Priority Associated Diagnoses [...] documented as of this encounter Care Teams Display Fabricator Relationship Specialty Start Date End Date Yashira Bethea MD [address] [place] [address] PCP - General Family Medicine 05/02/13 Nilda Alford, PharmD [address] [place] [address] Pharmacist Internal Medicine 06/16/22 Carina [place] [facility] [address] [address] Gastroenterology 10/04/24 documented as of this encounter
--- OUTSIDE RECORDS SUMMARY | 2024-10-26 12:30 | XMS_ITS | Encounter Summary ---
Author Organization [employer] Address 75 [facility] 7t [place] [address] Care Team Providers Care Concrete Journeyman Name Role Phone Yashira Bethea MD Primary Care Provider [phone]- [phone] Nilda Alford PharmD Unavailable Carina [place] Unavailable [phone] Encounter Details Date Type Department Care Team (Late st Contact Info) Description 08/18/2023 Orders Only [facility] [address] [place], [place] [phone] Yashira Bethea MD [address] [place], [place] [phone] Social History Tobacco Use Types Packs/Day Years [...] Description 12/01/2024 9:00 AM EDT Medication Management [facility] [address] [place] [address] Nilda Alford, PharmD [address] [place] [address] 02/05/2025 10:30 AM EDT Office Visit [facility] [address] [place] [address] Ruben, Lia, OD 230 [place] [address] documented as of this encounter Goals Goal Patient Goal Type Associated Problems Recent Progress Patient-Stated? Author Blood Pressure < 140/90 Blood Pressure 132/80(2024 9:50 AM EDT) No Nilda Toney, PharmD Hemoglobin A1c < 7 Result Component 7.9( 11:00 AM EST) No Nilda Toney, PharmD documented as of this encounter Visit Diagnoses Not on filedocumented in this encounter Care Teams Concrete Journeyman Relationship Specialty Start Date End Date Yashira Bethea MD [address] [place] [address] PCP - General Family Medicine 05/02/13 Nilda Alford, Phil [address] [place] [address] Pharmacist Internal Medicine 06/16/22 Carina Malin [address] [place] [address] Gastroenterology 10/04/24 documented as of this encounter
--- OUTSIDE RECORDS SUMMARY | 2024-10-26 12:30 | XMS_ITS | Encounter Summary ---
Author Organization [employer] Address [address] [facility] 7t [place] [address] Care Team Providers Care Engineering And Development Director Name Role Phone Yashira Bethea MD Primary Care Provider [phone] Nilda Alford PharmD Unavailable Carina [place]in Unavailable [phone] Encounter Details Date Type Department Care Team (Late st Contact Info) Description 03/03/2023 Orders Only [facility] [address] [place] [address] Yashira Bethea MD [address] [place] [address] [phone] Mild intermittent asthma without complication (Primary Dx) [...] Description 12/01/2024 9:00 AM EDT Medication Management [facility] [address] [place] [address] Nilda Alford PharmD [address] [place] [address] 02/05/2025 10:30 AM EDT Office Visit [facility] [address] [place] [address] Ruben, Lia, OD 230 [place] [address] documented as of this encounter Goals Goal Patient Goal Type Associated Problems Recent Progress Patient-Stated? Author Blood Pressure < 140/90 Blood Pressure 132/80(2024 9:50 AM EDT) No Nilda oTney PharmD Hemoglobin A1c < 7 Result Component 7.9( 11:00 AM EST) No Nilda Toney PharmD documented as of this encounter Visit Diagnoses Diagnosis Mild intermittent asthma without complication- Primary documented in this encounter Care Teams Engineering And Development Director Relationship Specialty Start Date End Date Yashira Bethea MD [address] [place] [address] PCP - General Family Medicine 05/02/13 Nilda Alford PharmD [address] [place] [address] Pharmacist Internal Medicine 06/16/22 Carina Malin [address] [place] [address] Gastroenterology 10/04/24 documented as of this encounter
--- OUTSIDE RECORDS SUMMARY | 2024-10-26 12:30 | XMS_ITS | Clinical Summary ---
Author Organization [employer] Address [address] [place] [address] [address] [place] [address] Care Team Providers Care Supervisor Quality Control Name Role Phone Yashira Bethea MD Primary Care Provider [phone]- [phone] Nilda Alford PharmD Unavailable Carina Malin Unavailable [phone] Allergies Active Allergy Reactions Criticality Noted Date Comments Shellfish Allergy 09/24/2022 Protein Unknown 01/31/2023 Medications nystatin (Mycostatin) 731538 UNIT/GM powder apply by topical route 2 times every day to the affected area(s) Active fluticasone (Flonase) 50 MCG/ACT nasal spray TAKE 1 SPRAY IN EACH NOSTRIL ONCE A DAY 022 Active latanoprost (Xalatan) 0.005 % ophthalmic solution INSTILL 1 DROP EVERY EVENING Active ketoconazole (NIZOral) 2 % shampoo APPLY TO THE SCALP TWO TIMES PER WEEK. LEAVE ON FOR 5 MINUTES THEN WASH OFF. 022 Active hydrocortisone 2.5 % cream APPLY TOPICALLY TO AFFECTED AREA(S) TWICE DAILY. DECREASE WHEN SYMPTOMS IMPROVE. 023 Active alclometasone (Aclovate) 0.05 % cream APPLY TO THE AFFECTED AREA(S) UNDER BREASTS, ABDOMINAL, AND BETWEEN LEGS ONCE DAILY NEEDED. DECREASE WHEN SYMPTOMS IMPROVE 024 Active D3 Super Strength 50 MCG (2000 UT) capsuleIndicatio ns:Vitamin D deficiency TAKE 1 CAPSULE BY MOUTH EVERY EVENING 90 capsule 3 024 Active cyclobenzaprine (Flexeril) 5 MG tablet Take 5 mg by mouth if needed in the morning, at noon, and at bedtime for muscle spasms. 024 Active glucose blood (FREESTYLE LITE) test stripIndications :Type 2 diabetes mellitus without complications ([facility]) TEST BLOOD SUGAR THREE TIMES DAILY 100 strip 3 024 Active TRUEplus Lancets 33G miscIndications: Type 2 diabetes mellitus without complications ([facility]) TEST BLOOD SUGAR THREE TIMES DAILY 100 each 11 024 Active Aspirin Low Dose 81 MG EC tabletIndication s:Cardiomyopathy , unspecified type ([facility]) TAKE 1 TABLET BY MOUTH EVERY EVENING 90 tablet 1 024 Active levothyroxine (Synthroid, Levoxyl) 75 MCG [...] per day. 90 tablet 3 025 Active pravastatin (Pravachol) 40 MG tabletIndication s:Hyperlipidemia , unspecified hyperlipidemia type TAKE 1 TABLET BY MOUTH EVERY EVENING 90 tablet 3 025 Active cyclobenzaprine (Flexeril) 10 MG tabletIndication s:Bilateral shoulder pain, unspecified chronicity One tab po at bedtime prn pain of muscles, do not drive with medicaion 30 tablet 025 Active insulin pen needle (RonnytiGsury SafePack Pen Needle) 32G x 4 mm miscIndications: Insulin dependent type 2 diabetes mellitus ([facility]) USE DIRECTED FOUR TIMES DAILY 100 each 11 025 Active insulin glargine (Basaglar KwikPen) 100 UNIT/ML penIndications:T ype 2 diabetes mellitus without complication, unspecified whether iron piler insulin use ([facility]) Inject subcutaneously 50 units once daily 15 mL 3 025 Active insulin aspart (NovoLOG FLEXPEN) 100 UNIT/ML penIndications:T ype 2 diabetes mellitus without complication, unspecified whether shelter insulin use (CMS/HCC) Inject subcutaneously 8 units with breakfast, 10 units with lunch and 18 units with dinner. Do not use if skipping the meal. 15 mL 3 025 Active Dulaglutide (Trulicity) 4.5 MG/0.5ML solution auto-injectorInd ications:Type 2 diabetes mellitus without complication, unspecified whether shelter insulin use (CMS/HCC) Inject 4.5 mg under the skin every 7 (seven) days. 2 mL 3 025 Active cetirizine (ZyrTEC) 10 MG tabletIndication s:Seasonal allergies TAKE 1 TABLET BY MOUTH EVERYDAY AT NOON 90 tablet 1 Active insulin pen needle (SimbiosistiGRepeatitrd SafePack Pen Needle) 32G x 4 mm miscIndications: Insulin dependent type 2 diabetes mellitus (CMS/[facility]) USE DIRECTED FOUR TIMES DAILY 100 each 11 024 2024 Discontinued(R eorder (will not trigger notification to Pharmacy)) cetirizine (ZyrTEC) 10 MG tabletIndication s:Seasonal allergies TAKE 1 TABLET BY MOUTH EVERYDAY AT NOON 90 tablet 1 024 2024 Discontinued Dulaglutide (Trulicity) 3 MG/0.5ML solution auto-injectorInd ications:Type 2 diabetes mellitus without complication, with long-term current use of insulin ([facility]) Inject 0.5 mL (3 mg) under the skin 1 (one) time per week. 2 mL 3 024 2024 Discontinued(D ose adjustment) insulin glargine (Basaglar KwikPen) 100 UNIT/ML penIndications:T ype 2 diabetes mellitus without complication, unspecified whether shelter insulin use (CMS/[facility]) Inject subcutaneously 64 units once daily 025 2024 Discontinued(D ose adjustment) insulin aspart (NovoLOG FLEXPEN) 100 UNIT/ML penIndications:T ype 2 diabetes mellitus without complication, unspecified whether iron piler insulin use (CMS/[facility]) Inject subcutaneously 10 units with breakfast, 14 units with lunch and 26 units with dinner. Do not use if skipping the meal. 025 2024 Discontinued(D ose adjustment) Active Problems Problem Noted Date Diagnosed Date Dietary counseling 10/04/2024 Assessment & Plan (10/04/2024 2:48 PM EDT): Dietary Recommendations: Fruits, vegetables, whole grains, protein foods, and fat-free or low-fat dairy products are healthy choices. Eat different types of protein foods in your diet. This can include seafood, lean meats, poultry, beans, peas, lentils, nuts, seeds, soy products, and eggs. Limit foods and beverages higher in added sugars, saturated fat, and sodium. Exercise counseling 10/04/2024 Assessment & Plan (10/04/2024 2:48 PM EDT): Exercise Recommendations: At least 150 minutes of moderate-intensity physical activity per week, or an equivalent combination of moderate- and vigorous-intensity activity. Bilateral shoulder pain 10/04/2024 Overview (10/04/2024): Acute on chronic bilateral shoulder pain. No hx of or recent trauma. No previous imaging. -Prescribed cyclobenzaprine (Flexeril) 10 MG -Declines Physical Therapy. -ordered bilateral shoulder XR's. 10/04/24 Assessment & Plan (10/04/2024 3:03 PM EDT): Acute on chronic bilateral shoulder pain. No hx of or recent trauma. No previous imaging. -Prescribed cyclobenzaprine (Flexeril) 10 MG -Declines Physical Therapy. -ordered bilateral shoulder XR's. 10/04/24 Major depressive disorder wi th single episode, in partial remission 03/24/2024 Overview (03/27/2024): -Doing well with therapist and psychiatrist. Assessment & Plan (10/04/2024 2:51 PM EDT): -Doing well with therapist and psychiatrist. Assessment & Plan (03/27/2024 8:13 PM EDT): -Doing well with therapist and psychiatrist. Transaminitis 04/19/2023 Overview (10/04/2024): Diagnosis: metabolic dysfunction-associated steatotic liver disease Lab Results Component Value Date AST 46 (H) 08/29/2024 AST 32 (H) 02/02/2024 AST 35 10/01/2022 ALT 33 (H) 08/29/2024 ALT 38 (H) 02/02/2024 ALT 31 (H) 10/01/2022 ALT 32 (H) 08/08/2021 TOTALBILIRUB 0.6 08/29/2024 TOTALBILIRUB 0.4 02/02/2024 PLT 225 08/29/2024 CREATININE 0.78 08/29/2024 NA 138 08/29/2024 Ultrasound: 03/27/24 Diffuse increased liver parenchymal echogenicity, [...] after 3-6 months & FIB4 > 1.3. -ordered repeat HFP 10/04/24 Assessment & Plan (10/04/2024 3:11 PM EDT): Diagnosis: metabolic dysfunction-associated steatotic liver disease Lab Results Component Value Date AST 46 (H) 08/29/2024 AST 32 (H) 02/02/2024 AST 35 10/01/2022 ALT 33 (H) 08/29/2024 ALT 38 (H) 02/02/2024 ALT 31 (H) 10/01/2022 ALT 32 (H) 08/08/2021 TOTALBILIRUB 0.6 08/29/2024 TOTALBILIRUB 0.4 02/02/2024 PLT 225 08/29/2024 CREATININE 0.78 08/29/2024 NA 138 08/29/2024 Ultrasound: 03/27/24 Diffuse increased liver parenchymal echogenicity, [...] after 3-6 months & FIB4 > 1.3. -ordered repeat HFP 10/04/24 Assessment & Plan (03/27/2024 8:13 PM EDT): [...] to PT done 04/19/2023 for right arm. Other specified health status 12/16/2022 Overview (10/04/2024): -next comprehensive annual evaluation due after 10/04/25 -eye care facilitated by [facility], last 05/2022, will request note 12/18/2022. -dental home is [facility], follow up encouraged -health care proxy given and filed 03/30/24 Assessment & Plan (10/04/2024 3:06 PM EDT): -next comprehensive annual evaluation due after 10/04/25 -eye care facilitated by [facility], last 05/2022, will request note 12/18/2022. -dental home is [facility], follow up encouraged -health care proxy given and filed 03/30/24 Assessment & Plan (03/27/2024 8:13 PM EDT): -next physical exam due after 04/19/2024 -eye care facilitated by [facility], last 05/2022, will request note 12/18/2022. -dental home is [facility], follow up encouraged today. Assessment & Plan (04/19/2023 9:56 AM EDT): -next physical exam due after 04/19/2024 -eye care facilitated by [facility], last 05/2022, will request note 12/18/2022. -dental home is [facility], follow up encouraged today. Assessment & Plan (12/18/2022 10:15 AM EDT): -next physical exam due after -eye care facilitated by [facility], last 05/2022, will request note 12/18/2022. -dental home is [facility], follow up encouraged today. Primary hypertension 10/01/2022 Overview (07/31/2024): -Blood pressure is at goal -Continue lifestyle modifications -Continue current medications -lisinopril increased to 10mg once daily by [facility] 07/25/24 Assessment & Plan (10/04/2024 3:01 PM EDT): -Blood pressure is at goal [...] to 5mg 10/01/2022. Vitamin D deficiency 07/07/2022 Overview (10/04/2024): No results found for: [id number] Acquired hypothyroidism 06/16/2022 Overview (10/04/2024): - Lab Results Component Value Date TSH 4.02 (H) 08/29/2024 TSH 2.50 04/26/2023 TSH 3.37 07/08/2022 -continue levothyroxine 50 mcg daily. -ordered repeat TSH 10/04/24 Assessment & Plan (10/04/2024 2:49 PM EDT): - Lab Results Component Value Date TSH 4.02 (H) 08/29/2024 TSH 2.50 04/26/2023 TSH 3.37 07/08/2022 -continue levothyroxine 50 mcg daily. -ordered repeat TSH 10/04/24 Assessment & Plan (03/27/2024 8:12 PM EDT): [...] Onychomycosis 04/17/2022 Bilateral hearing loss 08/03/2021 Overview (10/04/2024): Followed by audiology for bilateral hearing aids. Assessment & Plan (10/04/2024 2:48 PM EDT): Followed by audiology for bilateral [...] of 45.0 to 49.9 in adult 08/03/2021 Overview (10/04/2024): Baseline weight: 220 lbs 10/04/24 Discussed weight, diet, exercise with patient in relation to health conditions. Used motivational interviewing to illicit change talk and established initial goals with patient. Assessment & Plan (10/04/2024 3:05 PM EDT): Baseline weight: 220 lbs 10/04/24 Discussed weight, diet, exercise with patient in relation to health conditions. Used motivational interviewing to illicit change talk and established initial goals with patient. Seasonal allergies 08/03/2021 Tubular adenoma 08/03/2021 Overview (10/04/2024): -last colonscopy 02/16/2018 -Tubular adenoma in repeat colonoscopy with [facility] 05/17/23, repeat in 3 years. Assessment & Plan (04/19/2023 10:09 AM EDT): -last colonscopy 02/16/2018 -Next colonoscopy 04/2023. -Referral done 04/19/2023 Assessment & Plan (12/18/2022 10:28 AM EDT): -last colonscopy 02/16/2018 -Next colonoscopy 04/2023. Assessment & Plan (10/01/2022 1:28 PM EDT): -last colonscopy 02/16/2018 -Pt has an upcoming GI appointment. Assessment & Plan (07/08/2022 10:05 AM EST): -Last colonscopy 02/16/2018 -Pt referred to [facility] 07/08/2022 Cardiomyopathy 10/28/2018 Overview (10/04/2024): -overdue for echo, ordered echo 10/04/24 Assessment & Plan (10/04/2024 3:07 PM EDT): -overdue for echo, ordered echo 10/04/24 Assessment & Plan (03/27/2024 8:12 PM EDT): -cardiology appointment scheduled for March 2014 Hyperlipidemia 09/07/2018 Overview (10/04/2024): Lab Results Component Value Date CHOL 137 02/02/2024 CHOL 133 04/26/2023 TRIG 102 02/02/2024 TRIG 120 04/26/2023 TRIG 192 (H) 07/08/2022 HDL 56 02/02/2024 HDL 48 04/26/2023 LDLCHOLCAL 61 02/02/2024 LDLCHOLCAL 61 04/26/2023 -continue lifestyle modifications -continue pravastatin 40mg daily -reordered FLP and HFP 10/04/24 Assessment & Plan (10/04/2024 2:50 PM EDT): Lab Results Component Value Date CHOL 137 02/02/2024 CHOL 133 04/26/2023 TRIG 102 02/02/2024 TRIG 120 04/26/2023 TRIG 192 (H) 07/08/2022 HDL 56 02/02/2024 HDL 48 04/26/2023 LDLCHOLCAL 61 02/02/2024 LDLCHOLCAL 61 04/26/2023 -continue lifestyle modifications -continue pravastatin 40mg daily -reordered FLP and HFP 10/04/24 Assessment & Plan (03/27/2024 8:13 PM EDT): [...] daily Intestinal metaplasia of gastric mucosa 02/19/20 Mild intermittent asthma 03/22/2017 Overview (03/27/2024): -Well controlled on occasional albuterol PRN Assessment & Plan (10/04/2024 2:51 PM EDT): -Well controlled on occasional albuterol PRN Assessment & Plan (03/27/2024 8:11 PM EDT): -Well controlled on occasional albuterol PRN Diverticular disease 07/03/2013 Allergic rhinitis 02/15/2012 Anemia 02/15/2012 Overview (10/04/2024): Lab Results Component Value Date HGB 12.1 08/29/2024 HGB 12.3 04/19/2023 HGB 12.6 07/08/2022 HGB 12.7 08/08/2021 HEMATOCRIT 39.4 07/08/2022 HEMATOCRIT 39.7 08/08/2021 Insulin dependent type 2 diabetes mellitus 12/02 Overview (10/06/2024): Followed in [facility]. Declines CGM; SMBG with Freestyle Lite Lab Results Component Value Date HGBA1C 7.9 (A) 07/25/2024 HGBA1C 7.8 (A) 03/27/2024 HGBA1C 7.6 (A) 01/04/2024 Lab Results Component Value Date CREATININE 0.78 08/29/2024 EGFR >60 08/29/2024 MICROALBCREU 35.9 (H) 02/02/2024 MICROALBCREU 21.4 04/26/2023 LDLCHOLCAL 61 02/02/2024 -Lantus solostar and Humalog Kwikpen : switched to basaglar and novolog per insurance formulary coverage 07/25/24 -[facility] -Brown/Arb: lisinopril 10mg -Statin therapy: pravastatin 40mg -Diabetic eye exam: [facility] in [facility], last 06/07/2019 -Diabetic foot exam: 03/27/24 done -Continue lifestyle modifications Assessment & Plan (10/04/2024 3:04 PM EDT): Followed in [facility]. Declines CGM; SMBG with Freestyle Lite Lab Results Component Value Date HGBA1C 7.9 (A) 07/25/2024 HGBA1C 7.8 (A) 03/27/2024 HGBA1C 7.6 (A) 01/04/2024 Lab Results Component Value Date CREATININE 0.78 08/29/2024 EGFR >60 08/29/2024 MICROALBCREU 35.9 (H) 02/02/2024 MICROALBCREU 21.4 04/26/2023 LDLCHOLCAL 61 02/02/2024 -Lantus solostar and Humalog Kwikpen : switched to basaglar and novolog per insurance formulary coverage 07/25/24 -Trulicity increased to 3mg once weekly by [facility] 06/01/24 - Per [facility] most recent note 08/22/24: Basaglar kwikpen increase to 64 units once daily, Novolog kwikpen dinner dose increased to 26 units -Brown/Arb: lisinopril 10mg -Statin therapy: pravastatin 40mg -Diabetic eye exam: [facility] in [facility], last 06/07/2019 -Diabetic foot exam: 03/27/24 done -Continue lifestyle modifications -Consulted with [facility] 10/04/24 to enquire about switching Trulicity to Monjaro due to elevated LFT's. Plan to not do any changes till appointment with [facility] on 10/06/24 Assessment & Plan (03/27/2024 8:13 PM EDT): [...] -Diabetic eye exam: [facility] in [facility], last 06/07/2019 -Diabetic foot exam: 03/27/24 done [...] -Diabetic eye exam: [facility] in [facility], last 06/07/2019-Diabetic foot exam: Done 10/01/2022. -Continue [...] -Diabetic eye exam: [facility] in [facility], last 06/07/2019-Diabetic foot exam: Done 10/01/2022. -Continue [...] therapy: provastatin 40mg -Diabetic eye exam: At [place], Pt will call for follow up. -Diabetic foot exam: Done 10/01/2022. -Continue lifestyle modifications -Continue current medications Resolved Problems Problem Noted Date Diagnosed Date Resolved Date Postmenopausal 03/24/2024 03/27/2024 Overview (03/24/2024): Final Menstrual Period: Symptoms: {Menopause s/s:22938} Risk factors for osteoporosis: {sjbosteoporosisriskfactors:63247} -USPTF recommends DEXA be preformed on all [...] reduction discussed. Atypical chest pain 03/02/2023 03/27/20 Diabetes due to undrl condit ion w [...] Encounters Date Type Department Care Team Description 10/22/2024 Refill [facility] [place] [address] Yashira Bethea MD Seasonal allergies 10/07/2024 Refill [facility] [place] [address] Yashira Bethea MD Mild intermittent asthma without complication 10/06/2024 Travel 10/04/2024 2:15 PM EDT Office Visit [facility] [place] [address] Yashira Bethea MD Bilateral shoulder pain, unspecified chronicity (Primary Dx); Mild intermittent asthma without complication; Primary hypertension; Insulin dependent type 2 diabetes mellitus (CMS/HCC); Hyperlipidemia, unspecified hyperlipidemia type; Cardiomyopathy, unspecified type (CMS/HCC); Acquired hypothyroidism; Transaminitis; Major depressive disorder with single episode, in partial remission (CMS/HCC); Bilateral hearing loss, unspecified hearing loss type; Class 3 severe obesity due to excess calories with serious comorbidity and body mass index (BMI) of 45.0 to 49.9 in adult; Dietary counseling; Exercise counseling; Encounter for immunization; Other specified health status 10/04/2024 Travel 10/03/2024 Telephone [facility] [address] Yashira Bethea MD chart prep 09/22/2024 Telephone [facility] [address] Yashira Bethea MD 09/13/2024 Refill [facility] [place] [address] Yashira Bethea MD Hyperlipidemia, unspecified hyperlipidemia type 08/29/2024 Orders Only [facility] [place] [address] Yashira Bethea MD 08/22/2024 Travel from Last 3 Months Immunizations Name Administration Dates Next Due Hep A, Adult 10/04/2024 Hep B, adult 01/16/2015,09/21/2014,06/04/2014 Influenza Injectable Quadriv [...] adsorbed 08/04/2002 Tdap 03/27/2024,07/03/2013 Zoster, Recombinant 12/12/2021,07/09/2021 Family History Medical History Relation Name Comments Stomach cancer Father Relation Name Status Comments Father Social History Tobacco Use Types Packs/Day Years [...] Sign Reading Time Taken Comments Blood Pressure 132/80 10/06/2024 9:50 AM EDT Pulse 101 10/06/2024 9:50 AM EDT Temperature 36.4 ??C (97.5 ??F) 10/04/2024 2:34 PM ED T Respiratory Rate 18 10/04/2024 2:34 PM EDT Oxygen Saturation 98% 10/04/2024 2:34 PM EDT Inhaled Oxygen Concentration - - Weight 99.8 kg (220 lb) 10/04/2024 2:34 PM EDT Height 147.3 cm (4' 10 ) 10/04/2024 2:34 PM EDT Body Mass Index 45.98 10/04/2024 2:34 PM EDT Plan of Treatment Upcoming Encounters Date Type Department Care Team (Late st Contact Info) Description 12/01/2024 9:00 AM EDT Medication Management [facility] [address] [place], [place] [id number] Nilda Alford, PharmD [address], [place] [id number] 02/05/2025 10:30 AM EDT Office Visit [facility] [address] [place] [address] iLa Miranda, OD [address] [place] [address] Health Maintenance Due Date Last Done Comments CT Colonography 1961 FIT DNA/Cologuard 1961 FIT 1961 FOBT 1961 Sigmoidoscopy 1961 Diabetes: Hemoglobin A1C 10/22/2024 025, 03/27/2024, 01/04/2024, Additional history exists Diabetes: Urine Protein Screening 02/01/2025 02/02/2024, 04/26/2023, 08/08/2021, Additional history exists Lipid Panel 02/01/2025 02/02/2024, 11/2022, 07/08/2022, Additional history exists Alcohol/Substance Use Screening 03/27/2025 03/27/2024 Depression Screening 03/27/2025 03/27/2024, 03/27/20 24 Diabetes: Foot Exam 03/27/2025 03/27/2024, 03/27/2024, 03/27/2024, Additional history exists SDOH Screening 03/27/2025 03/27/2024 Hepatitis A Vaccines (2 of 2 - Risk 2-dose series) 04/05/2025 10/04/2024 Eye Exam 08/19/2025 08/20/2023, 030 06/2023, 08/20/2023, Additional history exists Tobacco Screening 10/04/2025 10/04/2024 Mammogram 08/28/2026 08/28/2024, 02/0 02/2024, 07/24/2022, Additional history exists Cervical Cancer Screening 12/19/2027 HPV/Cotest 12/19/2027 12/18/2022, 060 06/2017, 11/19/2017 Pap Smear 12/19/2027 12/18/2022, 11/19/2017 Colonoscopy 05/17/2028 05/17/2023, 02/16/2018 Colorectal Cancer Screening 05/17/2028 DTaP/Tdap/Td Vaccines (3 - Td or Tdap) 03/27/2034 03/27/2024, 07/03/2013, 08/04/2002 Hepatitis B Vaccines Completed 01/16/2015, 09/21/2014, 06/04/2014 HIV Screening Completed 01/02/2020, 01/02/2020 Zoster Vaccines Completed 12/12/2021, 07/09/2021 Pneumococcal Vaccine: 50+ Years Completed 06/18/2022, 01/16/2015, 02/28/2007 RSV Patients and Patients Aged 60 years or older Completed 01/04/2024 COVID-19 Vaccine Completed 03/27/2024, 11/2023, 12/18/2022, Additional history exists Influenza Vaccine Completed 03/27/2024, , 04/17/2022, Additional history exists Hepatitis C Screening Completed 08/29/2024, 014 HIB Vaccines Aged Out No longer eligi [...] 132/80(2024 9:50 AM EDT) No Nilda Toney, Phil Hemoglobin A1c < 7 Result Component 7.9( 11:00 AM EST) No Nilda Toney PharmD Procedures Procedure Name Priority Date/Time Associated Diagnosis Comments T4, FREE Routine 08/29/2024 10:01 AM EDT BASIC METABOLIC PANEL Routine 08/29/2024 10:01 AM EDT CBC WITH AUTO DIFFERENTIAL Routine 08/29/2024 10:01 AM EDT Transaminitis HEPATIC FUNCTION PANEL Routine 08/29/2024 10:01 AM EDT Transaminitis Abnormal liver function Disease of liver Hepatic fibrosis, unspecified HEPATITIS PANEL, GENERAL Routine 08/29/2024 10:01 AM EDT Transaminitis Abnormal liver function Disease of liver Hepatic fibrosis, unspecified Encounter for screening for other viral diseases ALPHA FETOPROTEIN, TUMOR MARKER Routine 08/29/2024 10:01 AM EDT Transaminitis Abnormal liver function Disease of liver Hepatic fibrosis, unspecified TSH W/REFLEX TO FT4 Routine 08/29/2024 1 0:01 AM EDT Acquired hypothyroidism BI MAMMOGRAM SCREENING TOMOSYNTHESIS BILATERAL Routine 08/28/2024 11:30 AM EDT POCT GLYCATED HEMOGLOBIN, TOTAL Routine 07/25/2024 11:00 AM EST Type 2 diabetes mellitus without complication, unspecified whether shelter insulin use (CMS/HCC) ALBUMIN, RANDOM URINE W/CREATININE Routine 02/02/2024 10:47 AM EDT LIPID PANEL, STANDARD Routine 02/02/2024 10:47 AM EDT HM COLONOSCOPY Routine 05/17/2023 THINPREP PAP, HPV MRNA E6/E7 RFX HPV 16,18/45, CHLAMYDIA/N.GONORRHOE AE Routine 12/18/2022 10:46 AM EDT Cervical cancer screening HIV 1/2 ANTIGEN/ANTIBODY, FOURTH GENERATION W/RFL Routine 01/02/2020 from Last 3 Months or Most Recently Relevant to Health Maintenance Results * (ABNORMAL) TSH W/Reflex to FT4 (08/29/2024 10:01 AM EDT) TSH reflex Free T4 4.02(H) 0.32 - 4.0 uIU/mL [facility] Blood Venous blood specimen / Unknown 08/29/2024 10:01 AM EDT 08/29/2024 11:29 AM EDT Yashira Bethea MD LAB BLOOD ORDERABLES Final Result Performing Organization Address [facility] Co de Phone Number [facility] [address] [place] [address] [phone] Hepatitis Panel, General (08/29/2024 10:01 AM EDT) Pathologist [facility] [place] Hepatitis A IgM Nonreactive Nonreactive [facility] Comment:IgM antibodies to SIERRA V not detected; does not exclude earlyacute or recovered HAV infection. ~Hepatitis B Surface Antibody GRAYZONE Nonreactive [facility] Comment:GRAYZONE: 8.00 mIU/m L TO 11.99 mIU/mLTHE IMMUNE STATUS OF THE INDIVIDUAL SHOULD BE FURTHERASSESSED BY CONSIDERING OTHER FACTORS, SUCH CLINICALSTATUS, FOLLOW-UP TESTING, ASSOCIATED RISK FACTORS, AND THEUSE OF ADDITIONAL DIAGNOSTIC INFORMATION. Hepatitis B Core Antibody Nonreactive Nonreactive [facility] Hepatitis C Antibody Nonreactive Nonreactive [facility] Comment:Antibodies to HCV no t detected; does not exclude early acuteHCV infection. Hepatitis B Surface Ag Negative Negative [facility] Blood Venous blood specimen / Unknown 08/29/2024 10:01 AM EDT 08/29/2024 11:29 AM EDT Yashira Bethea MD LAB BLOOD ORDERABLES Final Result Performing Organization Address [facility] Co de Phone Number [facility] [address] [place] [address] [phone] * (ABNORMAL) CBC auto differential (08/29/2024 10:01 AM EDT) White Blood Count 7.9 4.8 - 10.8 X10*3/uL [facility] Red Blood Count 4.72 4.20 - 5.50 X10*6/uL [facility] Hemoglobin 12.1 12.0 - 16.0 g/dl [facility] Hematocrit 37.8 37.0 - 47.0 % [facility] Mean Corpuscular Volume 80.1 80.0 - 98.0 fL [facility] Mean Corpuscular Hemoglobin 25.6(L) 27.0 - 33.0 pg [facility] Mean Corpuscular HGB Conc 32.0 31.0 - 35.0 g/dl [facility] Red Cell Distribution Width 15.2 11.0 - 16.0 % [facility] Platelet Count 225 160 - 400 X10*3/uL [facility] Mean Platelet Volume 9.9 9.4 - 12.3 fL [facility] Neutrophils Percent Auto 61.6 45 - 73 % [facility] Imm Gran Pct Auto 0.3 0.0 - 0.4 % [facility] Lymphocytes Percent Auto 27.6 20 - 40 % [facility] Monocytes Percent Auto 7.5 2 - 11 % [facility] Eosinophils Percent Auto 2.5 0 - 4 % [facility] Basophils Percent Auto 0.5 0 - 2 % [facility] NRBC Pct Auto 0.0 0.0 - 0.2 /100WBC [facility] Neutrophils Absolute Auto 4.9 2.0 - 8.3 x10*3/uL [facility] Imm Gran Abs Auto 0.02 0.00 - 0.03 X10*3/uL [facility] Lymphocytes Absolute Auto 2.2 1.2 - 4.9 X10*3/uL [facility] Monocytes Absolute Auto 0.6 0.1 - 1.2 X10*3/uL [facility] Eosinophils Absolute Auto 0.2 0.0 - 0.4 X10*3/uL [facility] Basophils Absolute Auto 0.0 0.0 - 0.2 X10*3/uL [facility] NRBC Abs Auto 0.000 0.0 - 0.012 X10*3/uL [facility] Blood Venous blood specimen / Unknown 08/29/2024 10:01 AM EDT 08/29/2024 11:29 AM EDT Yashira Bethea MD LAB BLOOD ORDERABLES Final Result Performing Organization Address [facility] Co de Phone Number [facility] [address] [place] [phone] * Alpha-Fetoprotein, Tumor Marker (08/29/2024 10:01 AM EDT) Alpha Fetoprotein 3.8 ng/mL [facility] Comment:Reference Range: <6. 1The use of AFP as a tumor marker in females is not recommended.This test was performed using the Uvaldo Coulterchemiluminescent method. Values obtained fromdifferent assay methods cannot be usedinterchangeably. AFP levels, regardless ofvalue, should not be interpreted as absoluteevidence of the presence or absence of disease.THIS TEST WAS PERFORMED AT:[facility] [place] [id number] ADAME MD Blood Venous blood specimen / Unknown 08/29/2024 10:01 AM EDT 08/29/2024 11:29 AM EDT Yashira Bethea MD LAB BLOOD ORDERABLES Final Result Performing Organization Address [facility] Co de Phone Number [facility] [address] [place] [phone] * T4, Free (08/29/2024 10:01 AM EDT) Free T4 (Free Thyroxine) 1.05 0.71 - 1.85 ng/dL [facility] 08/29/2024 10:0 1 AM EDT 08/29/2024 11:29 AM EDT Yashira Bethea MD LAB BLOOD ORDERABLES Final Result Performing Organization Address [facility] Co de Phone Number [facility] [address] [place] [phone] * (ABNORMAL) Hepatic Function Panel (08/29/2024 10:01 AM EDT) Pathologist [facility] [place] Bilirubin, Total 0.6 0.0 - 1.0 mg/dL [facility] Bilirubin, Direct 0.2 0.0 - 0.5 mg/dL [facility] Aspartate Amino Transferase 46(H) 5 - 31 U/L [facility] Alanine Aminotransferase 33(H) 0 - 31 U/L [facility] Total Protein 8.3(H) 6.5 - 8.0 g/dL [facility] Albumin Level 3.7 3.5 - 5.0 g/dL [facility] Alkaline Phosphatase 124(H) 39 - 117 U/L [facility] Blood Venous blood specimen / Unknown 08/29/2024 10:01 AM EDT 08/29/2024 11:29 AM EDT Yashira Bethea MD LAB BLOOD ORDERABLES Final Result [facility] [address] [place] [phone] * (ABNORMAL) Basic Metabolic Panel (08/29/2024 10:01 AM EDT) Pathologist [facility] [place] Sodium 138 135 - 145 mmol/L [facility] Potassium 3.9 3.3 - 5.1 mmol/L [facility] Chloride 107 96 - 108 mmol/L [facility] Carbon Dioxide 24 22 - 29 mmol/L [facility] Anion Gap 11(L) 12 - 20 [facility] Urea Nitrogen (BUN) 16 9 - 16 mg/dL [facility] Creatinine, Serum 0.78 0.5 - 1.4 mg/dL [facility] Estimated Glomerular Filt Rate >60 [facility] Comment:Chronic Kidney Disea se: Estimated GFR < 60 mL/min/1.27a0Mzxiqy Kidney Disease: Estimated GFR < 15 mL/min/1.73m2 Glucose 151(H) 60 - 115 mg/dL [facility] Calcium 8.7 8.4 - 10.2 mg/dL [facility] 08/29/2024 10:0 1 AM EDT 08/29/2024 11:29 AM EDT us Yashira Bethea MD LAB BLOOD ORDERABLES Final Result [facility] [address] [place] [address] [phone] * BI Mammogram Screening Tomosynthesis Bilateral (08/28/2024 11:30 AM EDT) Anatomical Region Laterality Modality Breast Bilateral Mammography 08/28/2024 11:3 0 AM EDT Narrative 09/04/2024 5:33 PM EDT ? [facility] ? [address] ?[place] [address] ? Mammography Report ? Signed ? Patient: Ignacio Parada,Onaida ?MR#: [id number] ?? [id number] ? : 1960 ?Acct:[id number] ? Age/Sex: 63 / F ?ADM Date: 03/10/25 ? Loc: HO.MAMMO ? Attending Dr: Yashira Bethea MD ? Ordering Physician: Neema,Yashira BUCHANAN ?Results: 1N ?? egative ? Date of Service: 03/10/25 ?Follow Up: 1 Year From Orig ?? inal Mammogram ? Procedure(s): MM tomosynthesis screening BI ?? Accession Number(s): [id number] ? cc: Yashira Bethea MD ? EXAMINATION: ?? MM SCREENING DIGITAL BREAST TOMOSYNTHESIS, BILATERAL ? CLINICAL INFORMATION: ? Screening. Asymptomatic. ? COMPARISON: ?? Mammography: Comparison is made with available priors ? TECHNIQUE: ?? Digital breast mammography with tomosynthesis is performed in both the ?? craniocaudal and mediolateral oblique views along with computer-aided ?? detection (CAD). ? FINDINGS: ?? There are scattered areas [...] due date for their next mammogram. ? Electronically signed by: ??Kassandra Black DO ??09/04/2024 05:30 PM EDT ?? RP ? Dictated By: ?Kassandra Black DO ? Signed By: ?<Electronically signed by Kassandra Black, DO in OV> ? 09/04/24 1730 ? DD/ 1130 ? TD/TT: 08/28/24 1153 ? [employer] Administrator: ? Procedure Note Qamar, Image - 09/04/2024 [facility] [address] [place] [address] [place] [address] Mammography Report Signed Patient: Benoit Mccain#: [id number] : 2Acct:[id number] Age/Sex: 63 / FADM Date: 08/28/24 Loc: MAMMO Attending Dr: Yashira Bethea MD Ordering Physician: Yashira Bethea MDResults: 1N egative Date of Service: 08/28/24Follow Up: 1 Year From Orig inal Mammogram Procedure(s): MM tomosynthesis screening BI Accession Number(s): [id number] cc: Yashira Bethea MD EXAMINATION: MM SCREENING DIGITAL BREAST TOMOSYNTHESIS, BILATERAL CLINICAL INFORMATION: Screening. Asymptomatic. COMPARISON: Mammography: Comparison is made with available priors TECHNIQUE: Digital breast mammography with tomosynthesis is performed in both the craniocaudal and mediolateral oblique views along with computer-aided detection (CAD). FINDINGS: There are scattered areas of fibroglandular [...] target due date for their next mammogram. Electronically signed by: Kassandra Black DO 09/04/2024 05:30 PM EDT Dictated By: Kassandra Black DO Signed By: <Electronically signed by Kassandra Black DO in OV> 09/04/24 1730 DD/ 1130 TD/TT: 08/28/24 1153 [employer] Administrator: Yashira Bethea MD IMG BI PROCEDURES Final Re sult * (ABNORMAL) POCT A1C (07/25/2024 11:00 AM EST) Hemoglobin A1C 7.9(A) 4.0 - 6.0 % QC Media Lot # [id number] Lot# Expiration Date Blood 07/25/2024 11:0 0 AM EST Yashira Bethea MD POINT OF CARE TEST ENTER/E DIT ORDERABLES Final Result * (ABNORMAL) Albumin, Random Urine W/Creatinine (02/02/2024 10:47 AM EDT) Creatinine, Urine 158.61 mg/dL [facility] Microalbumin Urine 57.0 mg/L H [facility] Microalbum Creatinine Ratio Ur 35.9(H) <30 ug/mg cr [facility] Comment:Albumin/Creatinine R atio Reference Ranges: Normal: < 30 ug/mg creatinine Microalbuminuria: 30 - 300 ug/mg creatinineClinical Albuminuria: > 300 ug/mg creatinine 02/02/2024 10:4 7 AM EDT 02/02/2024 11:29 AM EDT us Yashira Bethea MD LAB URINE ORDERABLES Final Result [facility] [address] [place] [phone] * Lipid Panel, Standard (02/02/2024 10:47 AM EDT) Triglycerides 102 <150 mg/dL [facility] Comment:Desirable Triglyceri de: less than 150 mg/dLBorderline High Triglyceride 150-199 mg/dLHigh Triglyceride: 200-499 mg/dLVery High Triglyceride: greater than or equal to 5OO mg/dL Cholesterol 137 <200 mg/dL [facility] Comment:Desirable Cholestero l: less than 200 mg/dLBorderline High Cholesterol: 200-239 mg/dLHigh Cholesterol: greater than 239 mg/dL LDL Cholesterol Calculated 61 <100 mg/dL [facility] Comment:Desirable LDL: less than 100 mg/dLNear Optimal/Above Optimal LDL: 110- 129 mg/dLBorderline High LDL: 130-159 mg/dLHigh LDL: 160-189 mg/dLVery High LDL: greater than or equal to 190 mg/dL HDL Cholesterol 56 >40 mg/dL [facility] Comment:Desirable HDL: great er than 40 mg/dL Note: This HDL assay may give artificially low results in patients with liver disease. 02/02/2024 10:4 7 AM EDT 02/02/2024 11:33 AM EDT Yashira Bethea MD LAB BLOOD ORDERABLES Final Result [facility] [address] [place] [address] [phone] * (ABNORMAL) Hm Colonoscopy (05/17/2023) Colonoscopy Abnormal( A) Normal Comment:tubular adenoma with [facility] Historical Provider HEALTH MAINTENANCE Final Result * Thinprep PAP, HPV mRNA E6/E7 RFX HPV 16,18/45, Chlamydia/N. Gonorrhoeae (12/18/2022 10:46 AM EDT) Clinical Information: UNABLE TO VISUALIZE CERVICAL OS D [facility] LMP: NONE GIVEN [facility] Prev. PAP: NONE GIVEN [facility] Prev. BX: NO [facility] SOURCE: None given [facility] Statement Of Adequacy: SATISFACTORY FOR EVALUATION Partially obscuring inflammation [facility] Interpretation/Re sult: [facility] Comment: Cytology Results: Negative for intraepithelial lesion or malignancy. Atrophic pattern; predominantly parabasal cells Parenting Skills Instructor: HeyKikit Comment: CMG, CT(ASCP) CT screening location: [address] ??[phone] Review Parenting Skills Instructor: [facility] Comment: SL, CT(ASCP) CT screening location: [address] ??[phone] (Always Message) [place] Comment: EXPLANATORY NOTE: The Pap is a [...] HPV nRNA E6/E7 Not Detected Not Detected [employer] Comment: Methodology: Washer Carcass-Mediated Amplification This assay detects E6/E7 viral messenger RNA (mRNA) from 14 high-risk HPV types (16,18,31,33,35,39,45,51,52,56,58,59,66,68). Cervical sources are required for HPV testing. If a vaginal source from a patient who has had a total hysterectomy with removal of cervix was submitted, please contact the testing laboratory for alternative testing options. For additional information, please refer to http://xTV.Bangbite/faq/HDG898w8 (This link if provided for information/ educational purposes only.) Chlamydia trachomatis RNA, TMA, Urogenital NOT DETECTED NOT DETECTED [facility] Neisseria gonorrhoeae RNA, TMA, Urogenital NOT DETECTED NOT DETECTED [employer] (Always Message) Que [employer] Comment: The analytical performance characteristics of this assay, when used to test SurePath(TM) specimens have been determined by [employer]. The modifications have not been cleared or approved by the FDA. This assay has been validated pursuant to the CLIA regulations and is used for clinical purposes. For additional information, please refer to https://xTV.Bangbite/faq/UAP736 (This link is being provided for information/ educational purposes only.) Swab 12/18/2022 10:4 6 AM EDT 12/21/2022 8:36 AM EDT Yashira Bethea MD LAB PATHOLOGY ORDERABLES F inal Result [facility] [address], [place] [address] [facility] [place] [facility] [address] [place] [address] * HIV-1/2 Antigen and Antibodies, Fourth Generation, with Reflexes (01/02/2020) Blood Venous blood specimen / Unknown 01/02/2020 Aung Provider LAB BLOOD ORDERABLES Dariana l Result from Last 3 Months or Most Recently Relevant to Health Maintenance Insurance MEDICARE Advance Directives Documents on File Type Date Recorded Patient National Investigative Producer Expl anation Advance Directives and Living Will 03/30/2024 1:07 PM Health Care Proxy Care Teams Supervisor Quality Control Relationship Specialty Start Date End Date Twiggs, MD Yashira [address] [place] [phone] PCP - General Family Medicine 05/02/13 Nilda Alford, MattD [address] [place] [phone] Pharmacist Internal Medicine 06/16/22 Carina Malin [address] [place] [phone] Gastroenterology 10/04/24
[2024-10-26 13:30] LABS: Estimated Average Glucose 171 mg/dL; Hemoglobin A1C 192.8285 umol/L; Hemoglobin A1c % 7.6 % (<6.0); Total Hemoglobin (HGBA1C) 3237.2736 umol/L
[2024-10-26 13:53] LABS: Alanine Aminotransferase 35 U/L (0-31); Albumin Level 3.8 g/dL (3.5-5.0); Alkaline Phosphatase 122 U/L (39-117); Anion Gap 13 (12-20); Aspartate Amino Transferase 45 U/L (5-31); Bilirubin Direct 0.2 mg/dL (0.0-0.5); Bilirubin Total 0.4 mg/dL (0.0-1.0); Blood Urea Nitrogen 13 mg/dL (9-16); Calcium 9.2 mg/dL (8.4-10.2); Carbon Dioxide 23 mmol/L (22-29); Chloride 105 mmol/L (96-108); Cholesterol 136 mg/dL (<200); Creatinine Urine 198.23 mg/dL; Estimated Glomerular Filt Rate > 60; Glucose Random 138 mg/dL (60-115); HDL Cholesterol 48 mg/dL (>40); LDL Cholesterol Calculated 65 mg/dL (<100); Microalbum/Creatinine Ratio Ur 23.7 ug/mg cr (<30); Sodium 137 mmol/L (135-145); Triglycerides 119 mg/dL (<150)
[2024-10-26 14:29] LABS: Free T4 (Free Thyroxine) 0.97 ng/dL (0.71-1.85)
== END 2024-10-26 10:57 | disposition home or self-care (01) ==
LOC: HO.HHCL 10:56
PROVIDERS: Visit Provider Family Medicine
DX: M25.511 Pain in right shoulder (principal)
CPT/HCPCS: 36415; 73030; 80048; 80061; 80076; 82043; 82570; 83036; 84439; 84443

== ENCOUNTER → 2024-10-26 11:26 | Outpatient (BNV) | payer MEDICARE, MEDICAID, SELFPAY | PROVIDERS: Visit Provider Radiology Diagnostic Radiology | DX: M19.011 Primary osteoarthritis, right shoulder (principal); M25.512 Pain in left shoulder | CPT/HCPCS: 73030 ==

== ENCOUNTER 2025-01-03 10:03 | Outpatient (AMB) | payer MEDICARE, MEDICAID, SELFPAY ==
[2025-01-03 10:08] VITALS: BMI 46.0
--- NOTE | 2025-01-03 10:08 | MHC.OFFVIS ---
Vital Signs 01/03/25 10:08 Height 4 ft 10 in Weight 220 lb BMI 46.0 Intake Visit Reasons: Left shoulder pain and weakness Intake Note: Aaron is a 64 year old left hand dominant female who presents with complaints of left shoulder pain and weakness. She also has intermittent right shoulder pain. She states that her right shoulder pain is tolerable to her. The patient describes her left shoulder pain as sharp in nature. Her pain has gotten worse over the last 6 months. She did injure her left shoulder while lifting a heavy object approximately 6 months ago. She has failed the last 6 weeks of conservative treatment which has included Tylenol, anti-inflammatory medicines, muscle relaxants and a home exercise program. The patient reports difficulty lifting her left hand above shoulder height. At this point her left shoulder pain and weakness or interfering with her activities of daily living and her ability to sleep well through the night. Weigher Bulker Required: Yes Weigher Bulker Services: Weigher Bulker Present Weigher Bulker Name: Jose ID#[id number] Allergies No Known Allergies Allergy (Verified 01/03/25 10:12) Medication List - Last Reconciled 01/03/25 by Gigi Noriega MD albuterol sulfate 90 mcg/actuation 2 puffs PO Q4-6H PRN aspirin 81 mg PO DAILY cetirizine 10 mg PO BEDTIME cholecalciferol (vitamin D3) 50 mcg PO DAILY cyclobenzaprine 5 mg PO TID PRN dulaglutide (Trulicity) mg subcut QWEEK fluticasone propionate 50 mcg/actuation (Allergy Relief (fluticasone)) 1 spray intranasal DAILY fluticasone propionate 110 mcg/actuation (Flovent HFA) 2 puffs inhalation BID insulin aspart U-100 (Novolog FlexPen U-100 Insulin aspart) subcut insulin glargine (Lantus Solostar U-100 Insulin) 48 units subcut BEDTIME levothyroxine 75 mcg PO DAILY lidocaine 5% 1 patch topical DAILY lisinopril 10 mg PO DAILY loratadine 10 mg PO DAILY pravastatin 20 mg PO DAILY [facility] Medical History (Updated 01/03/25 @ 10:28 by Gigi Noriega MD) Asthma Atypical chest pain Surgical History No pertinent past surgical history Family History Father No problems noted. Mother No problems noted. Social History (Updated 01/03/25 @ 10:14 by Gerri Kay Joyce) Alcohol intake: never Patient Tobacco Use Status: Never used Tobacco Current occupational status: unemployed Current occupation: left hand dominant Physical Exam Vital Signs: BMI result Body Mass Index 46.0 Const Other: Well-nourished well-developed very friendly female awake alert and oriented x3 in no acute distress Extrem Other: Bilateral upper extremity examination shows good capillary refill, no skin lesions noted, normal sensation light touch Left shoulder examination shows decreased range of motion when compared to her right shoulder, 4+ out of 5 strength with supraspinatus testing, positive impingement signs, tenderness over her acromioclavicular joint, no instability Results Reviewed Results Reviewed: X-rays of the patient's bilateral shoulder show severe acromioclavicular joint narrowing, type 2 acromion, no acute bony abnormalities Assessment & Plan Assessment & Plan (1) Rotator cuff insufficiency of left shoulder: Code(s): M25.312 - Other instability, left shoulder Category: Medical Plan Ms. Mateus Parada presents with left shoulder pain and weakness due to impingement syndrome and possible rotator cuff tearing. Thus, I will send the patient for an MRI of her left shoulder for further evaluation. I will see her back once the MRI is completed to discuss the findings and treatment options. Feel free to call me at any time should questions regarding her orthopedic management arise. Thank you very much for asking me to see this very friendly patient. I spent 21 minutes in reviewing the patient's records and imaging studies, seeing the patient and documenting in the medical record. Orders: Orders MR shoulder LT wo con 01/04/25 M25.312 - Other instability, left shoulder Coding Level of Care Code New Pt Level 3 (17754) Complex EM visit Add On G2211 Diagnoses Rotator cuff insufficiency of left shoulder M25.312
--- OUTSIDE RECORDS SUMMARY | 2025-01-03 10:37 | XMS_ITS | Encounter Summary ---
Author Organization [facility] [facility] Address [address] [place] [address] Care Team Providers Care Landscape Nurseryman Name Role Phone Yashira Bethea MD Primary Care Provider [phone] Nilda Alford PharmD Unavailable Carina Malin Unavailable [phone] Reason for Visit * Reason Comments Med Refill Encounter Details Date Type Department Care Team (Late st Contact Info) Description 10/07/2024 Refill [facility] [address] [place], [place] [phone] Yashira Bethea MD [address] [place], [place] [phone] Mild intermittent asthma without complication Social History [...] the past 12 months, has t he [employer], gas, oil or water [employer] threatened to shut off services in your [...] Care Team (Late st Contact Info) Description 01/10/2025 9:30 AM EDT Medication Management [facility] [address] [place] [address] Nilda Alford PharmD [address] [place] [address] 02/05/2025 11:00 AM EDT Office Visit [facility] [address] [place] [address] Ruben, Lia, OD [address] [place] [address] documented as of this encounter Goals Goal Patient Goal Type Associated Problems Recent Progress Patient-Stated? Author Blood Pressure < 140/90 Blood Pressure 132/72(2024 9:48 AM EDT) No Nilda Toney PharmD Hemoglobin A1c < 7 Result Component 7.6( 5 10:59 AM EDT) No Nilda Toney, PharmD documented as of this encounter Visit Diagnoses Diagnosis Mild intermittent asthma without complication documented in this encounter Additional Health Concerns Assessment Noted Time PHQ-9 Depression Total Score: 0 03/27/20 24 10:39 AM EDT documented as of this encounter Care Teams Landscape Nurseryman Relationship Specialty Start Date End Date Yashira Bethea MD [address] [place] [address] PCP - General Family Medicine 05/02/13 Nilda Alford, PharmD [address] [place] [phone] Pharmacist Internal Medicine 06/16/22 Carina Malin [address] [place] [phone] Gastroenterology 10/04/24 documented as of this encounter
== END 2025-01-03 10:23 | disposition home or self-care (01) ==
LOC: HO.HOS 10:04
PROVIDERS: Visit Provider Orthopaedic Surgery
DX: M25.312 Other instability, left shoulder (principal)
CPT/HCPCS: 99203; G2211

== ENCOUNTER → 2025-01-03 10:03 | Outpatient (BNVA) | payer MEDICARE, MEDICAID, SELFPAY | PROVIDERS: Visit Provider Orthopaedic Surgery | DX: M25.312 Other instability, left shoulder (principal) | CPT/HCPCS: 99202 ==

== ENCOUNTER → 2025-04-14 19:28 | Outpatient (BNV) | payer MEDICAID, SELFPAY | PROVIDERS: PCP Family Medicine; Visit Provider Radiology Diagnostic Ultrasound | DX: M25.312 Other instability, left shoulder (principal) | CPT/HCPCS: 73221 ==

== ENCOUNTER 2025-04-14 19:38 | Outpatient (REF) | payer MEDICAID, SELFPAY ==
--- NOTE | ~2025-04-14 | MR_ITS ---
EXAMINATION: MR SHOULDER WITHOUT CONTRAST, LEFT CLINICAL INFORMATION: Instability COMPARISON: None available. TECHNIQUE: MRI of the shoulder without contrast was performed on a high-field scanner. FINDINGS: Incomplete examination. MRI discontinued due to pain. Only one axial 2-D fat sat sequence obtained, which is degraded by motion artifact and suboptimal signal. Increased T2 signal in the proximal humerus, could be artifactual versus edema signal.. Humeral head is partially posterior subluxed with respect to glenoid. Small glenohumeral joint effusion. MR/MR shoulder LT wo con IMPRESSION: Incomplete examination. MRI discontinued due to pain. Question increased T2 signal in the proximal humerus. Recommend repeat MRI. Electronically signed by: Cricket Olivera MD 04/16/2025 04:32 PM EDT
--- OUTSIDE RECORDS SUMMARY | 2025-04-14 19:42 | XMS_ITS | Clinical Summary ---
Author Organization [employer] Address [address] [place] [address] [address] [place] [address] Care Team Providers Care Process Helper Name Role Phone Yashira Bethea MD Primary Care Provider + [phone] Nilda Alford PharmD Unavailable Carina Malin Unavailable [phone] Allergies Active Allergy Reactions Criticality Noted Date Comments Shellfish Allergy 09/24/2022 Protein Unknown 01/31/2023 Medications levothyroxine (Synthroid, Levoxyl) 75 MCG tabletIndication s:Acquired hypothyroidism TAKE 1 TABLET BY MOUTH EVERY MORNING 90 tablet 3 025 Active lisinopril 10 MG tabletIndication s:Primary [...] 30 tablet 025 Active insulin pen needle (UltiGuard SafePack Pen Needle) 32G x 4 mm miscIndications: 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) USE DIRECTED FOUR TIMES DAILY 100 each 11 025 Active cetirizine (ZyrTEC) 10 MG tabletIndication s:Seasonal allergies TAKE 1 TABLET BY MOUTH EVERYDAY AT NOON 90 tablet 1 025 Active Ventolin HFA 108 (90 Base) MCG/ACT inhalerIndicatio ns:Mild intermittent asthma without complication INHALE 2 PUFFS BY MOUTH EVERY 4 HOURS NEEDED FOR WHEEZING OR SHORTNESS OF BREATH 18 g 1 025 Active D3 Super Strength 50 MCG (2000 UT) capsuleIndicatio ns:Vitamin D deficiency TAKE 1 CAPSULE BY MOUTH EVERY EVENING 90 capsule 3 025 Active Aspirin Low Dose 81 MG EC tabletIndication s:Cardiomyopathy , unspecified type (CMS/HCC) (HCC) TAKE 1 TABLET BY MOUTH EVERY EVENING 90 tablet 1 025 Active metFORMIN XR (Glucophage-XR) 500 MG 24 hr tabletIndication s:Type 2 diabetes mellitus without complications, unspecified whether longterm insulin use ([facility]) Take 1 tablet (500 mg) by mouth 2 times daily. Do not crush, chew, or split. 180 tablet 1 025 Active glucose blood (FREESTYLE LITE) test stripIndications :Type 2 diabetes mellitus without complications, unspecified whether moth exterminator insulin use (HCC) USE DIRECTED TO TEST BLOOD SUGAR THREE TIMES DAILY 100 strip 11 025 Active TRUEplus Lancets 33G miscIndications: Type 2 diabetes mellitus without complications, unspecified whether longterm insulin use ([facility]) TEST BLOOD SUGAR THREE TIMES DAILY 100 each 11 025 Active insulin aspart (NovoLOG FLEXPEN) 100 UNIT/ML penIndications:T ype 2 diabetes mellitus without complications, unspecified whether moth exterminator insulin use ([facility]) Inject subcutaneously 12 units with breakfast, 14 units with lunch and 26 units with dinner. Do not use if skipping the meal. 15 mL 3 025 Active insulin glargine (Basaglar KwikPen) 100 UNIT/ML penIndications:T ype 2 diabetes mellitus without complications, unspecified whether longterm insulin use ([facility]) Inject subcutaneously 58 units once daily 15 mL 3 025 Active Dulaglutide (Trulicity) 4.5 MG/0.5ML solution auto-injectorInd ications:Type 2 diabetes mellitus without complications, unspecified whether longterm insulin use ([facility]) Inject 4.5 mg under the skin 1 (one) time per week. 2 mL 3 Active nystatin (Mycostatin) 173192 UNIT/GM powder apply by topical route 2 times every day to the affected area(s) 2024 Discontinued(M ed list cleanup (will not trigger notification to Pharmacy)) fluticasone (Flonase) 50 MCG/ACT nasal spray TAKE 1 SPRAY IN EACH NOSTRIL ONCE A DAY 2024 Discontinued(M ed list cleanup (will not trigger notification to Pharmacy)) latanoprost (Xalatan) 0.005 % ophthalmic solution INSTILL 1 DROP EVERY EVENING 2024 Discontinued(M ed list cleanup (will not trigger notification to Pharmacy)) ketoconazole (NIZOral) 2 % shampoo APPLY TO THE SCALP TWO TIMES PER WEEK. LEAVE ON FOR 5 MINUTES THEN WASH OFF. 2024 Discontinued(M ed list cleanup (will not trigger notification to Pharmacy)) hydrocortisone 2.5 % cream APPLY TOPICALLY TO AFFECTED AREA(S) TWICE DAILY. DECREASE WHEN SYMPTOMS IMPROVE. 2024 Discontinued(M ed list cleanup (will not trigger notification to Pharmacy)) alclometasone (Aclovate) 0.05 % cream APPLY TO THE AFFECTED AREA(S) UNDER BREASTS, ABDOMINAL, AND BETWEEN LEGS ONCE DAILY NEEDED. DECREASE WHEN SYMPTOMS IMPROVE 2024 Discontinued(M ed list cleanup (will not trigger notification to Pharmacy)) TRUEplus Lancets 33G miscIndications: Type 2 diabetes mellitus without complications (HCC) TEST BLOOD SUGAR THREE TIMES DAILY 100 each 11 2024 Discontinued(R eorder (will not trigger notification to Pharmacy)) glucose blood (FREESTYLE LITE) test stripIndications :Type 2 diabetes mellitus without complications (HCC) USE DIRECTED TO TEST BLOOD SUGAR THREE TIMES DAILY 100 strip 11 025 2024 Discontinued(R eorder (will not trigger notification to Pharmacy)) insulin glargine (Basaglar KwikPen) 100 UNIT/ML penIndications:T ype 2 diabetes mellitus without complication, unspecified whether moth exterminator insulin use Inject subcutaneously 58 units once daily 15 mL 3 025 2024 Discontinued(R eorder (will not trigger notification to Pharmacy)) insulin aspart (NovoLOG FLEXPEN) 100 UNIT/ML penIndications:T ype 2 diabetes mellitus without complication, unspecified whether moth exterminator insulin use Inject subcutaneously 12 units with breakfast, 14 units with lunch and 26 units with dinner. Do not use if skipping the meal. 15 mL 3 025 2024 Discontinued(R eorder (will not trigger notification to Pharmacy)) metFORMIN XR (Glucophage-XR) 500 MG 24 hr tabletIndication s:Type 2 diabetes mellitus without complication, unspecified whether longterm insulin use Take 1 tablet (500 mg) by mouth with evening meal. Do not crush, chew, or split. 90 tablet 025 2024 Discontinued(R eorder (will not trigger notification to Pharmacy)) Trulicity 4.5 MG/0.5ML solution auto-injectorInd ications:Type 2 diabetes mellitus without complication, unspecified whether moth exterminator insulin use INJECT ONE PEN (= 4.5MG) SUBCUTANEOUSLY ONCE A WEEK DIRECTED 2 mL 3 025 2024 Discontinued(R eorder (will not trigger notification to Pharmacy)) metFORMIN XR (Glucophage-XR) 500 MG 24 hr tabletIndication s:Type 2 diabetes mellitus without complications, unspecified whether longterm insulin use (HCC) Take 1 tablet (500 mg) by mouth 2 times daily. Do not crush, chew, or split. 180 tablet 1 025 2024 Discontinued(R eorder (will not trigger notification to Pharmacy)) Dulaglutide (Trulicity) 4.5 MG/0.5ML solution auto-injectorInd ications:Type 2 diabetes mellitus without complications, unspecified whether longterm insulin use (HCC) Inject 4.5 mg under the skin 1 (one) time per week. 2 mL 3 025 2024 Discontinued(R eorder (will not trigger notification to Pharmacy)) Dulaglutide (Trulicity) 4.5 MG/0.5ML solution auto-injectorInd ications:Type 2 diabetes mellitus without complications, unspecified whether longterm insulin use (HCC) Inject 4.5 mg under the skin 1 (one) time per week. 2 mL 3 025 2024 Discontinued(R eorder (will not trigger notification to Pharmacy)) Active Problems Problem Noted Date Diagnosed Date Bilateral shoulder pain 10/04/2024 Overview (10/26/2024): Acute on chronic bilateral shoulder pain. No hx of or recent trauma. No previous imaging. -Prescribed cyclobenzaprine (Flexeril) 10 MG -Declines Physical Therapy. XR right shoulder 10/26/24: Degenerative changes, and chronic clavicular joint and greater tuberosity. XR left shoulder 10/24/24 IMPRESSION: Probable old/chronic subluxation versus artifact, acromioclavicular joint. -referral to ortho placed 10/26/24 Assessment & Plan (10/26/2024 3:07 PM EDT): Acute on chronic bilateral shoulder pain. No hx of or recent trauma. No previous imaging. -Prescribed cyclobenzaprine (Flexeril) 10 MG -Declines Physical Therapy. XR right shoulder 10/26/24: Degenerative changes, and chronic clavicular joint and greater tuberosity. XR left shoulder 10/24/24 IMPRESSION: Probable old/chronic subluxation versus artifact, acromioclavicular joint. -referral to ortho placed 10/26/24 Major depressive disorder wi th single episode, in partial remission 03/24/2024 Overview (03/27/2024): -Doing well with therapist and psychiatrist. Assessment & Plan (10/04/2024 2:51 PM EDT): -Doing well with therapist and psychiatrist. Assessment & Plan (03/27/2024 8:13 PM EDT): -Doing well with therapist and psychiatrist. Transaminitis 04/19/2023 Overview (03/21/2025): Diagnosis: metabolic dysfunction-associated steatotic liver disease Lab Results Component Value Date AST 45 (H) 10/26/2024 AST 46 (H) 08/29/2024 AST 35 10/01/2022 ALT 35 (H) 10/26/2024 ALT 33 (H) 08/29/2024 ALT 31 (H) 10/01/2022 ALT 32 (H) 08/08/2021 TOTALBILIRUB 0.4 10/26/2024 TOTALBILIRUB 0.6 08/29/2024 PLT 225 08/29/2024 CREATININE 0.65 10/26/2024 NA 137 10/26/2024 Ultrasound: 03/27/24 Diffuse increased liver parenchymal echogenicity, [...] -ordered repeat [facility] 10/04/24 Assessment & Plan (03/21/2025 1:09 PM EDT): Diagnosis: metabolic dysfunction-associated steatotic liver disease Lab Results Component Value Date AST 45 (H) 10/26/2024 AST 46 (H) 08/29/2024 AST 35 10/01/2022 ALT 35 (H) 10/26/2024 ALT 33 (H) 08/29/2024 ALT 31 (H) 10/01/2022 ALT 32 (H) 08/08/2021 TOTALBILIRUB 0.4 10/26/2024 TOTALBILIRUB 0.6 08/29/2024 PLT 225 08/29/2024 CREATININE 0.65 10/26/2024 NA 137 10/26/2024 Ultrasound: 03/27/24 Diffuse increased liver parenchymal echogenicity, [...] months & FIB4 > 1.3. -ordered repeat [facility] 10/04/24 Assessment & Plan (03/27/2024 8:13 PM EDT): Lab Results Component Value Date TOTALBILIRUB 0.4 02/02/2024 AST 32 (H) 02/02/2024 AST 35 10/01/2022 ALT 38 (H) 02/02/2024 ALT 31 (H) 10/01/2022 ALP 104 02/02/2024 -us ordered 03/27/24 Other specified health status 12/16/2022 Overview (10/04/2024): -next comprehensive annual evaluation due after 10/04/25 -eye care facilitated by [facility], last 05/2022, will request note 12/18/2022. -dental home is [facility], follow up encouraged -health care proxy given and filed 03/30/24 Assessment & Plan (03/21/2025 1:09 PM EDT): -next comprehensive annual evaluation due after 10/04/25 -eye care facilitated by [facility], last 05/2022, will request note 12/18/2022. -dental home is [facility], follow up encouraged -health care proxy given and filed 03/30/24 Assessment & Plan (10/04/2024 3:06 PM EDT): -next comprehensive annual evaluation due after 10/04/25 -eye care facilitated by [facility], last 05/2022, will request note 12/18/2022. -dental home is [facility], follow up encouraged -health care proxy given and filed 03/30/24 Assessment & Plan (03/27/2024 8:13 PM EDT): -next physical exam due after 04/19/2024 -eye care facilitated by [facility], last 05/2022, will request note 12/18/2022. -dental home is [facility], follow up encouraged today. Assessment & Plan (04/19/2023 9:56 AM EDT): -next physical exam due after 04/19/2024 -eye care facilitated by [facility], last 05/2022, will request note 12/18/2022. -dental home is [facility], follow up encouraged today. Assessment & Plan (12/18/2022 10:15 AM EDT): -next physical exam due after -eye care facilitated by [facility], last 05/2022, will request note 12/18/2022. -dental home is [facility], follow up encouraged today. Primary hypertension 10/01/2022 Overview (07/31/2024): -Blood pressure is at goal -Continue lifestyle modifications -Continue current medications -lisinopril increased to 10mg once daily by [facility] 07/25/24 Assessment & Plan (03/21/2025 1:09 PM EDT): -Blood pressure is at goal -Continue lifestyle modifications -Continue current medications -lisinopril increased to 10mg once daily by [facility] 07/25/24 Assessment & Plan (10/04/2024 3:01 PM EDT): -Blood pressure is at goal -Continue lifestyle modifications -Continue current medications -lisinopril increased to 10mg once daily by [facility] 07/25/24 Assessment & Plan (03/27/2024 8:12 PM EDT): -Blood pressure is at goal -Continue lifestyle modifications -Continue current medications -lisinopril increased to 5mg by [facility] 01/04/24 Assessment & Plan (04/19/2023 9:28 AM EDT): Lisinopril increased to 5mg 10/01/2022. Assessment & Plan (12/18/2022 9:00 AM EDT): Lisinopril increased to 5mg 10/01/2022. Assessment & Plan (10/01/2022 1:26 PM EDT): Lisinopril increased to 5mg 10/01/2022. Vitamin D deficiency 07/07/2022 Overview (10/04/2024): No results found for: [id number] Acquired hypothyroidism 06/16/2022 Overview (03/21/2025): Lab Results Component Value Date TSH 4.20 (H) 10/26/2024 TSH 4.02 (H) 08/29/2024 TSH 2.50 04/26/2023 TSH 3.37 07/08/2022 -continue levothyroxine 50 mcg daily. Assessment & Plan (03/21/2025 1:09 PM EDT): Lab Results Component Value Date TSH 4.20 (H) 10/26/2024 TSH 4.02 (H) 08/29/2024 TSH 2.50 04/26/2023 TSH 3.37 07/08/2022 -continue levothyroxine 50 mcg daily. Assessment & Plan (10/04/2024 2:49 PM EDT): [...] on levothyroxine 50 mcg daily. Glaucoma 06/16/2022 Bilateral hearing loss 08/03/2021 Overview (10/04/2024): Followed [...] 02/16/2018 -Tubular adenoma in repeat colonoscopy with [facility] 05/17/23, repeat in 3 years. [...] EST): -Last colonscopy 02/16/2018 -Pt referred to [facility] 07/08/2022 Cardiomyopathy 10/28/2018 Overview (10/04/2024): [...] on occasional albuterol PRN Assessment & Plan (03/21/2025 1:09 PM EDT): -Well controlled on occasional albuterol [...] dependent type 2 diabetes mellitus 12/02 Overview (03/21/2025): Followed in [facility]. Declines CGM; SMBG with Freestyle Lite Lab Results Component Value Date HGBA1C 7.9 (A) 03/21/2025 HGBA1C 7.7 (A) 02/06/2025 HGBA1C 7.6 (H) 10/26/2024 Lab Results Component Value Date CREATININE 0.65 10/26/2024 EGFR >60 10/26/2024 MICROALBCREU 23.7 10/26/2024 MICROALBCREU 35.9 (H) 02/02/2024 LDLCHOLCAL 65 10/26/2024 -[facility] -metformin ER 500 increased to BID 03/21/25 -Brown/Arb: lisinopril 10mg -Statin therapy: pravastatin 40mg -Diabetic eye exam: [facility] in [facility], last 06/07/2019 -Diabetic foot exam: 03/27/24 done -Continue lifestyle modifications Assessment & Plan (03/21/2025 1:09 PM EDT): Followed in [facility]. Declines CGM; SMBG with Freestyle Lite Lab Results Component Value Date HGBA1C 7.9 (A) 03/21/2025 HGBA1C 7.7 (A) 02/06/2025 HGBA1C 7.6 (H) 10/26/2024 Lab Results Component Value Date CREATININE 0.65 10/26/2024 EGFR >60 10/26/2024 MICROALBCREU 23.7 10/26/2024 MICROALBCREU 35.9 (H) 02/02/2024 LDLCHOLCAL 65 10/26/2024 -Trulicity increased to 4.5mg by [facility] 10/06/24 -metformin ER 500 increased to BID 03/21/25 -Brown/Arb: lisinopril 10mg -Statin therapy: pravastatin 40mg -Diabetic eye exam: [facility] in [facility], last 06/07/2019 -Diabetic foot exam: 03/27/24 [...] to 3mg once weekly by [facility] 06/01/24 - Per [facility] most recent note 08/22/24: Basaglar kwikpen increase to 64 units once daily, Novolog kwikpen dinner dose increased to 26 units -Brown/Arb: lisinopril 10mg -Statin therapy: pravastatin 40mg -Diabetic eye exam: [facility] in [facility], last 06/07/2019 -Diabetic foot exam: 03/27/24 [...] -Diabetic eye exam: [facility] in [facility], last 06/07/2019 -Diabetic foot exam: 03/27/24 [...] -Diabetic eye exam: [facility] in [facility], last 06/07/2019-Diabetic foot exam: Done 10/01/2022. [...] -Diabetic eye exam: [facility] in [facility], last 06/07/2019-Diabetic foot exam: Done 10/01/2022. [...] therapy: provastatin 40mg -Diabetic eye exam: At [facility], Pt will call for follow up. -Diabetic foot exam: Done 10/01/2022. -Continue lifestyle modifications -Continue current medications Resolved Problems Problem Noted Date Diagnosed Date Resolved Date Dietary counseling 10/04/2024 Assessment & Plan [...] saturated fat, and sodium. Exercise counseling 10/04/2024 03/21/20 Assessment & Plan (10/04/2024 2:48 PM EDT): Exercise Recommendations: At least 150 minutes of moderate-intensity physical activity per week, or an equivalent combination of moderate- and vigorous-intensity activity. Postmenopausal 03/24/2024 03/27/2024 Overview (03/24/2024): Final Menstrual Period: Symptoms: {Menopause s/s:11989} Risk factors for osteoporosis: {sjbosteoporosisriskfactors:14072} -USPTF recommends DEXA be preformed on all [...] discussed. -Preventative care / harm reduction discussed. Radiculopathy affecting upper extremity 04/19/2023 03/21/2025 Overview (02/02/2024): -Referral to PT done 04/19/2023 for right arm Assessment & Plan (04/19/2023 10:21 AM EDT): -Referral to PT done 04/19/2023 for right arm. Atypical chest pain 03/02/2023 03/27/20 Diabetes due [...] acute abdominal, was told to increase fiber. Onychomycosis 04/17/2022 03/21/2025 Tubular adenoma of colon 02/18/201804/2023 Encounters Date Type Department Care Team Description 03/30/2025 Telephone [facility] [address] [place] [address] Yashira Bethea MD 03/21/2025 11:15 AM EDT Office Visit [facility] [address] [place] [address] Yashira Bethea MD 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) (Primary Dx); Type 2 diabetes mellitus without complications (HCC); Type 2 diabetes mellitus without complications, unspecified whether moth exterminator insulin use (HCC); Acquired hypothyroidism; Primary hypertension; Transaminitis; Other specified health status; Mild intermittent asthma without complication 03/21/2025 Travel 02/12/2025 Refill [facility] [address] [place] [address] Nilda Alford PharmD Type 2 diabetes mellitus without complication, unspecified whether moth exterminator insulin use (CMS/HCC) 02/06/2025 Travel 02/05/2025 Telephone [facility] [address] [place] [address] Lia Miranda, OD 01/12/2025 Telephone [facility] [address] [place], [place] [id number] Yashira Bethea MD March Recalls 01/12/2025 Travel from Last 3 Months Immunizations Immunization Administration Dates Next Due Hep A, Adult [...] Date Recorded Patient Health Questionnaire-9 Score 0 03/21/2025 Patient Health Questionnaire-9 Score 0 03/21/2025 Last PHQ-9: Questionnaire Data Not on file [...] Date Recorded Patient Health Questionnaire-2 Score 0 03/21/2025 Internet Access Answer Date Recorded Internet Access Q1 No 03/21/2025 Internet Access Q2 I do not want or need it 06/2024 Comments Unknown Sex and Gender Information Value Date Recorded Sex Assigned at Female 04/20/2022 10:16 AM EDT Legal Sex Female 10:16 AM EDT Gender Identity Female 04/20/2022 10:16 AM EDT Sexual Orientation Straight 04/20/2022 10 :16 AM EDT Last Filed Vital Signs Vital Sign Reading Time Taken Comments Blood Pressure 136/89 03/21/2025 11:08 AM EDT Pulse 108 03/21/2025 11:08 AM EDT Temperature 36 C (96.8 F) 03/21/2025 11:08 AM EDT Respiratory Rate 20 03/21/2025 11:08 AM EDT Oxygen Saturation 98% 03/21/2025 11:08 AM EDT Inhaled Oxygen Concentration - - Weight 99 kg (218 lb 3.2 oz) 03/21/2025 11:08 AM EDT Height 147.3 cm (4' 10 ) 10/04/2024 2:34 PM EDT Body Mass Index 45.6 10/04/2024 2:34 PM EDT Plan of Treatment Upcoming Encounters Date Type Department Care Team (Late st Contact Info) Description 04/23/2025 10:00 AM EST Medication Management [facility] [address] [place] [address] Nilda Alford, PharmD [address] [place] [address] Health Maintenance Due Date Last Done Comments CT Colonography 1961 FIT DNA/Cologuard 1961 FIT 1961 FOBT 1961 Sigmoidoscopy 1961 Influenza Vaccine (#1) 2025 , 04/19/2023, 04/17/2022, Additional history exists Diabetes: Foot Exam 03/27/2025 03/27/2024, 03/27/2024, 03/27/2024, Additional history exists Diabetes: Hemoglobin A1C 06/21/2025 025, 02/06/2025, 10/26/2024, Additional history exists Eye Exam 08/19/2025 08/20/2023, 03/0 06/2023, 08/20/2023, Additional history exists Disability Screening 10/04/2025 10/04/2024 Diabetes: Urine Protein Screening 10/26/2025 10/26/2024, 02/02/2024, 04/26/2023, Additional history exists Lipid Panel 10/26/2025 10/26/2024, 01/19, 04/26/2023, Additional history exists Alcohol/Substance Use Screening 03/21/2026 03/21/2025 Depression Screening 03/21/2026 03/21/2025, 03/21/20 25 SDOH Screening 03/21/2026 03/21/2025 Tobacco Screening 03/21/2026 03/21/2025 Mammogram 08/28/2026 08/28/2024, 0202/2024, 07/24/2022, Additional history exists Cervical Cancer Screening [...] Completed 03/27/2024, 11/2023, 12/18/2022, Additional history exists Hepatitis C Screening Completed 08/29/2024, 014 Hepatitis A Vaccines Aged Out 10/04/2024 No long er eligible based on patient's age to complete this topic HIB Vaccines Aged Out No longer eligi ble based on patient's age to complete this topic HPV Vaccines Aged Out No longer eligi ble based on patient's age to complete this topic IPV Vaccines Aged Out No longer eligi ble based on patient's age to complete this topic Meningococcal B Vaccine Aged Out No l onger eligible based on patient's age to complete [...] Author Blood Pressure < 140/90 Blood Pressure 136/89(2024 11:08 AM EDT) No Nilda Toney PharmD Hemoglobin A1c < 7 Result Component 7.9( 11:50 AM EDT) No Nilda Toney PharmD Procedures Procedure Name Priority Date/Time Associated Diagnosis Comments POCT GLUCOSE Routine 03/21/2025 11:51 AM EDT Type 2 diabetes mellitus without complications (HCC) POCT GLYCOSYLATED HEMOGLOBIN (HGB A1C) Routine 03/21/2025 11:50 AM EDT Type 2 diabetes mellitus without complications (HCC) POCT GLYCATED HEMOGLOBIN, TOTAL Routine 02/06/2025 10:31 AM EDT Type 2 diabetes mellitus without complication, unspecified whether moth exterminator insulin use (CMS/HCC) ALBUMIN, RANDOM URINE W/CREATININE Routine 10/26/2024 10:59 AM EDT Primary hypertension LIPID PANEL, STANDARD Routine 10/26/2024 10:59 AM EDT Hyperlipidemia, unspecified hyperlipidemia type HEPATITIS PANEL, GENERAL Routine 08/29/2024 10:01 AM EDT Transaminitis Abnormal liver function Disease of liver Hepatic fibrosis, unspecified Encounter for screening for other viral diseases BI MAMMOGRAM SCREENING TOMOSYNTHESIS BILATERAL Routine 08/28/2024 11:30 AM EDT HM COLONOSCOPY Routine 05/17/2023 THINPREP PAP, HPV MRNA E6/E7 RFX HPV 16,18/45, CHLAMYDIA/N.GONORRHOE AE Routine 12/18/2022 10:46 AM EDT Cervical cancer screening HIV 1/2 ANTIGEN/ANTIBODY, FOURTH GENERATION W/RFL Routine 01/02/2020 from Last 3 Months or Most Recently Relevant to Health Maintenance Results * (ABNORMAL) POCT glucose manually resulted (03/21/2025 11:51 AM EDT) Glucose Blood, POC 255(A) 60 - 200 mg/dL QC Media Lot # [id number] Lot# Expiration Date [id number] Blood Capillary blood specimen / Unknown 03/21/2025 11:51 AM EDT Yashira Bethea MD POINT OF CARE TEST ENTER/E DIT ORDERABLES Final Result * (ABNORMAL) POCT glycosylated hemoglobin (Hgb A1c) (03/21/2025 11:50 AM EDT) Hemoglobin A1C 7.9(A) 4.0 - 5.7 % QC Media Lot # [id number] Lot# Expiration Date [id number] Blood Capillary blood specimen / Unknown 03/21/2025 11:50 AM EDT us Yashira Bethea MD POINT OF CARE TEST ENTER/E DIT ORDERABLES Final Result * (ABNORMAL) POCT A1c (02/06/2025 10:31 AM EDT) Hemoglobin A1C 7.7(A) 4.0 - 5.7 % QC Media Lot # [id number] Lot# Expiration Date ,[id number] Blood 02/06/2025 10:3 1 AM EDT us Yashira Bethea MD POINT OF CARE TEST ENTER/E DIT ORDERABLES Final Result * Albumin, Random Urine W/Creatinine (10/26/2024 10:59 AM EDT) Creatinine, Urine 198.23 mg/dL [facility] Microalbumin Urine 47.0 mg/L [facility] Microalbum Creatinine Ratio Ur 23.7 <30 ug/mg cr [facility] Comment:Albumin/Creatinine R atio Reference Ranges: Normal: < 30 ug/mg creatinine Microalbuminuria: 30 - 300 ug/mg creatinineClinical Albuminuria: > 300 ug/mg creatinine Urine 10/26/2024 10:5 9 AM EDT 10/26/2024 12:59 PM EDT us Yashira Bethea MD LAB URINE ORDERABLES Final Result [facility] [address] [place] [address] [phone] * Lipid Panel, Standard (10/26/2024 10:59 AM EDT) Triglycerides 119 <150 mg/dL [facility] Comment:Desirable Triglyceri de: less than 150 mg/dLBorderline High Triglyceride 150-199 mg/dLHigh Triglyceride: 200-499 mg/dLVery High Triglyceride: greater than or equal to 5OO mg/dL Cholesterol 136 <200 mg/dL [facility] Comment:Desirable Cholestero l: less than 200 mg/dLBorderline High Cholesterol: 200-239 mg/dLHigh Cholesterol: greater than 239 mg/dL LDL Cholesterol Calculated 65 <100 mg/dL [facility] Comment:Desirable LDL: less than 100 mg/dLNear Optimal/Above Optimal LDL: 110- 129 mg/dLBorderline High LDL: 130-159 mg/dLHigh LDL: 160-189 mg/dLVery High LDL: greater than or equal to 190 mg/dL HDL Cholesterol 48 >40 mg/dL [facility] Comment:Desirable HDL: great er than 40 mg/dL Note: This HDL assay may give artificially low results in patients with liver disease. Blood Venous blood specimen / Unknown 10/26/2024 10:59 AM EDT 10/26/2024 12:58 PM EDT Yashira Bethea MD LAB BLOOD ORDERABLES Final Result Performing Organization Address [facility] Co de Phone Number [facility] [address] [place] [address] [phone] * Hepatitis Panel, General (08/29/2024 10:01 AM EDT) Hepatitis A IgM Nonreactive Nonreactive [facility] Comment:IgM antibodies to SIERRA V not detected; does not exclude earlyacute or recovered HAV infection. ~Hepatitis B Surface Antibody GRAYZONE Nonreactive [facility] Comment:GRAYZONE: 8.00 mIU/m L TO 11.99 mIU/mLTHE IMMUNE STATUS OF THE INDIVIDUAL SHOULD BE FURTHERASSESSED BY CONSIDERING OTHER FACTORS, SUCH CLINICALSTATUS, FOLLOW-UP TESTING, ASSOCIATED RISK FACTORS, AND THEUSE OF ADDITIONAL DIAGNOSTIC INFORMATION. Hepatitis B Core Antibody Nonreactive Nonreactive [facility] Hepatitis C Antibody Nonreactive Nonreactive [facility] Comment:Antibodies to HCV no t detected; does not exclude early acuteHCV infection. Hepatitis B Surface Ag Negative Negative [facility] Blood Venous blood specimen / Unknown 08/29/2024 10:01 AM EDT 08/29/2024 11:29 AM EDT Yashira Bethea MD LAB BLOOD ORDERABLES Final Result Performing Organization Address [facility] Co de Phone Number [facility] [address] [place] [address] [phone] * BI Mammogram Screening Tomosynthesis Bilateral (08/28/2024 11:30 AM EDT) Anatomical Region Laterality Modality Breast Bilateral Mammography 08/28/2024 11:3 0 AM EDT Narrative 09/04/2024 5:33 PM EDT [facility] [address] [place] [address] Mammography Report Signed Patient: Aaron Mccain MR#: [id number] : 1960 Acct:[id number] Age/Sex: 63 / F ADM Date: 08/28/24 Loc: HO.MAMMO Attending Dr: Yashira Bethea MD Ordering Physician: Yashira Bethea MD Results: 1N egative Date of Service: 08/28/24 Follow Up: 1 Year From Orig inal Mammogram Procedure(s): MM tomosynthesis screening BI Accession Number(s): [id number] cc: Yashira Bethea MD EXAMINATION: MM SCREENING [...] 09/04/24 1730 DD/ 1130 TD/TT: 08/28/24 1153 Project Accountant: Procedure Note Donotuseinterpreter, Image - 09/04/2024 [facility] [address] [place] [address] [place] [address] Mammography Report Signed Patient: Fahad MccainR#: [id number] : 1960cct:[id number] Age/Sex: 63 / FADM Date: 08/28/24 Loc: HO.MAMMO Attending Dr: Yashira Bethea MD Ordering Physician: Yashira Bethea MDResults: 1N egative Date of Service: 08/28/24Follow Up: 1 Year From Orig ina Mammogram Procedure(s): MM tomosynthesis screening BI Accession Number(s): [id number] cc: Yashira Bethea MD EXAMINATION: MM SCREENING [...] Kassandra Black DO 09/04/2024 05:30 PM EDT RP Dictated By: Kassandra Black DO Signed By: <Electronically signed by Kassandra Black DO in OV> 09/04/24 1730 DD/ 1130 TD/TT: 08/28/24 1153 Project Accountant: Yashira Bethea MD IMG BI PROCEDURES Final Re sult * (ABNORMAL) Hm Colonoscopy (05/17/2023) Colonoscopy Abnormal( A) Normal Comment:tubular adenoma with [facility] GI Historical Provider HEALTH MAINTENANCE Final Result * Thinprep PAP, HPV mRNA E6/E7 RFX HPV 16,18/45, Chlamydia/N. Gonorrhoeae (12/18/2022 10:46 AM EDT) Clinical Information: UNABLE TO VISUALIZE CERVICAL OS D [employer] Communicationt LMP: NONE GIVEN [employer] [place] [employer] [facility] Prev. PAP: NONE GIVEN [employer] [place] [email or web address] Prev. BX: NO [employer] Communicationt SOURCE: None given [employer] Communication[employer] Statement Of Adequacy: SATISFACTORY FOR EVALUATION Partially obscuring inflammation [employer] [place] [employer] Interpretation/Re sult: [employer] [place] [employer] Comment: Cytology Results: Negative for intraepithelial lesion or malignancy. 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[employer] [place] [email or web address] Comment: CMG, CT(ASCP) CT screening location: [place] [address] [address] Teacher: [employer] [place] [employer] Comment: SL, CT(ASCP) CT screening location: [place] [address] (Always Message) Que st [employer] Comment: EXPLANATORY NOTE: The Pap is a [...] HPV nRNA E6/E7 Not Detected Not Detected [employer] Comment: Methodology: Package Winder-Mediated Amplification This assay detects E6/E7 viral messenger RNA (mRNA) from 14 high-risk HPV types (16,18,31,33,35,39,45,51,52,56,58,59,66,68). Cervical sources are required for HPV testing. If a vaginal source from a patient who has had a total hysterectomy with removal of cervix was submitted, please contact the testing laboratory for alternative testing options. For additional information, please refer to http://education.StudyBlue/faq/EDU722e1 (This link if provided for information/ educational purposes only.) Chlamydia trachomatis RNA, TMA, Urogenital NOT DETECTED NOT DETECTED [employer] Neisseria gonorrhoeae RNA, TMA, Urogenital NOT DETECTED NOT DETECTED [employer] Communication[employer] Comment [facility] Comment: The analytical performance characteristics of this assay, when used to test SurePath(TM) specimens have been determined by [employer]. The modifications have not been cleared or approved by the FDA. This assay has been validated pursuant to the CLIA regulations and is used for clinical purposes. For additional information, please refer to https://education.StudyBlue/faq/QCD094 (This link is being provided for information/ educational purposes only.) Swab 12/18/2022 10:4 6 AM EDT 12/21/2022 8:36 AM EDT Yashira Bethea MD LAB PATHOLOGY ORDERABLES F inal Result [facility] [address], [place] [address] [facility] [address] [place] [address] * HIV-1/2 Antigen and Antibodies, Fourth Generation, with Reflexes (01/02/2020) Blood Venous blood specimen / Unknown 01/02/2020 Aung Provider LAB BLOOD ORDERABLES Dariana l Result from Last 3 Months or Most Recently Relevant to Health Maintenance Insurance STANDARD MEDICARE [facility] Advance Directives Documents on File Type Date Recorded Patient Monomer Recovery Operator Expl anation Advance Directives and Living Will 03/30/2024 1:07 PM Health Care Proxy Care Teams Process Helper Relationship Specialty Start Date End Date [place], MD Yashira [address] [place], [place] PCP - General Family Medicine 05/02/13 Nilda Alford PharmD [address] [place], [place] Pharmacist Internal Medicine 06/16/22 Carina Malin [facility] [address] [address] (work) Gastroenterology 10/04/24
--- OUTSIDE RECORDS SUMMARY | 2025-04-14 19:42 | XMS_ITS | Encounter Summary ---
Author Organization [employer] Address 75 [facility] 7t [place] [address] Care Team Providers Care Broadcast Field Supervisor Name Role Phone Yashira Bethea MD Primary Care Provider + [phone] Nilda Alford PharmD Unavailable Carina Malin Unavailable [phone] Reason for Visit * Reason Comments Med Refill Encounter Details Date Type Department Care Team (Late st Contact Info) Description 12/13/2023 Refill [facility] [address] [place], [place] [phone] Chasity Meyer MD [address] [place], [place] [phone] Social History Tobacco Use Types Packs/Day Years [...] Description 04/23/2025 10:00 AM EST Medication Management [facility] [address] [place] [phone] Nilda Alford PharmD [address] [place] [phone] documented as of this encounter Goals Goal Patient Goal Type Associated Problems Recent Progress Patient-Stated? Author Blood Pressure < 140/90 Blood Pressure 136/89(2024 11:08 AM EDT) No Nilda Toney, PharmD Hemoglobin A1c < 7 Result Component 7.9( 11:50 AM EDT) No Nilda Toney PharmD documented as of this encounter Visit Diagnoses Not on filedocumented in this encounter Care Teams Broadcast Field Supervisor Relationship Specialty Start Date End Date Yashira Bethea MD [address] [place] [address] [phone] PCP - General Family Medicine 05/02/13 Nilda Alford, PharmD [address] [place] [address] [phone] Pharmacist Internal Medicine 06/16/22 Carina Malin [address] [address] Gastroenterology 10/04/24 documented as of this encounter
--- OUTSIDE RECORDS SUMMARY | 2025-04-14 19:42 | XMS_ITS | Encounter Summary ---
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) Yashira Bethea MD [address] [place] [address] Phone: tel: fax: Referral ID Status Reason Start Date Expiration Date Visits Requested Visits Authorized [id number] Pending Review Consult and Treat 04/27/2024 04/27/2025 6 6 Encounter Details Date Type Department Care Team (Late st Contact Info) Description 04/27/2024 Orders Only [facility] [address] [place] [address] [phone] Yashira Bethea MD [address] [place] [address] [phone] Primary hypertension (Primary Dx); Insulin dependent type [...] Description 04/23/2025 10:00 AM EST Medication Management [facility] [address] [place] [address] Nilda Alford, PharmD [address] [place], [place] [phone] Scheduled Referrals Name Type Priority Associated Diagnoses [...] hypertension 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
--- OUTSIDE RECORDS SUMMARY | 2025-04-14 19:42 | XMS_ITS | Encounter Summary ---
Author Organization [employer] Address 75 [facility] 7t [place] [address] Care Team Providers Care Brazer Production Line Name Role Phone Yashira Bethea MD Primary Care Provider Nilda Alford PharmD Unavailable Carina Malin Unavailable [phone] Reason for Visit * Reason Comments Med Refill Encounter Details Date Type Department Care Team (Late st Contact Info) Description 10/14/2022 Refill [facility]INE [address] [place], [place] [phone] Yashira Bethea MD [address] [place], [place] [phone] Social History Tobacco Use Types Packs/Day Years [...] Description 04/23/2025 10:00 AM EST Medication Management [facility] [address] [place] [address] Nilda Alford PharmD [address] [place] [phone] documented as of this encounter Goals Goal Patient Goal Type Associated Problems Recent Progress Patient-Stated? Author Hemoglobin A1c < 7 Result Component 7.9(03/21/2025 11:50 AM EDT) No Nilda Alford PharmD documented as of this encounter Visit Diagnoses Not on filedocumented in this encounter Care Teams Brazer Production Line Relationship Specialty Start Date End Date Yashira Bethea MD [address] [place] [address] PCP - General Family Medicine 05/02/13 Nilda Alford PharmD [address] [place] [address] Pharmacist Internal Medicine 06/16/22 Carina Malin [facility] [address] [address] Gastroenterology 10/04/24 documented as of this encounter
--- OUTSIDE RECORDS SUMMARY | 2025-04-14 19:42 | XMS_ITS | Encounter Summary ---
Author Organization [employer] Address 75 [facility] 7t [place] [address] Care Team Providers Care Visual Display Manager Name Role Phone Yashira Bethea MD Primary Care Provider + [phone] Nilda Alford PharmD Unavailable Carina Malin Unavailable [phone] Reason for Visit * Reason Onset Date Comments Appointment Request 12/01/2024 Encounter Details Date Type Department Care Team (Late st Contact Info) Description 12/01/2024 Telephone [facility] MEDICINE [address] [place], [place] [phone] Yashira Bethea MD 230 [place], [place] [phone] Appointment Request Social History Tobacco Use Types Packs/Day Years [...] AM EDT documented as of this encounter Miscellaneous Notes * Telephone Encounter - Lamberto Walton - 12/01/2024 8:45 AM EDT Tc from pt requesting to reschedule CDTM visit. Please contact pt at [phone]. (Croatian Speaker) documented in this encounter Plan of Treatment Upcoming Encounters Date Type Department Care Team (Late st Contact Info) Description 04/23/2025 10:00 AM EST Medication Management [facility] MEDICINE [address] [place] [address] Nilda Alford, PharmD 230 [place] [address] documented as of this encounter Goals Goal Patient Goal Type Associated Problems Recent Progress Patient-Stated? Author Blood Pressure < 140/90 Blood Pressure 136/89(2024 11:08 AM EDT) No Nilda Toney PharmD Hemoglobin A1c < 7 Result Component 7.9( 5 11:50 AM EDT) No Nilda Toney PharmD documented as of this encounter Visit Diagnoses Not on filedocumented in this encounter Additional Health Concerns Assessment Noted Time PHQ-9 Depression Total Score: 0 03/27/20 24 10:39 AM EDT documented as of this encounter Care Teams Visual Display Manager Relationship Specialty Start Date End Date Yashira Bethea MD [address] [place] [address] PCP - General Family Medicine 05/02/13 Nilda Alford PharmD [address] [place] [address] Pharmacist Internal Medicine 06/16/22 Carina Malin [address] [place] [address] Gastroenterology 10/04/24 documented as of this encounter
--- OUTSIDE RECORDS SUMMARY | 2025-04-14 19:42 | XMS_ITS | Encounter Summary ---
Author Organization [employer] Address 75 [facility] 7t [place] [address] Care Team Providers Care Solar Project Coordination Specialist Name Role Phone Yashira Bethea MD Primary Care Provider Nilda Alford PharmD Unavailable Carina Malin Unavailable [phone] Encounter Details Date Type Department Care Team (Late st Contact Info) Description 07/29/2022 Abstract [facility] MEDICINE [address] [place], [place] [phone] Yashira Bethea MD 230 [place], [place] [phone] Social History Tobacco Use Types Packs/Day Years [...] Description 04/23/2025 10:00 AM EST Medication Management [facility] MEDICINE [address] [place] [address] Nilda Alford PharmD [address] [place] [address] documented as of this encounter Procedures Procedure Name Priority Date/Time Associated Diagnosis Comments MAMMOGRAPHY Routine 07/24/2022 documented in this encounter Results * Mammography (07/24/2022) Mammogram perfom Anatomical Region Laterality Modality Other Historical Provider HEALTH MAINTENANCE Final Result documented in this encounter Visit Diagnoses Not on filedocumented in this encounter Care Teams Solar Project Coordination Specialist Relationship Specialty Start Date End Date Yashira Bethea MD [address] [place] [address] PCP - General Family Medicine 05/02/13 Nilda Alford, Phil [address] [place] [address] Pharmacist Internal Medicine 06/16/22 Carina Malin [address] [place] [address] [address] [place] [address] Gastroenterology 10/04/24 documented as of this encounter
--- OUTSIDE RECORDS SUMMARY | 2025-04-14 19:42 | XMS_ITS | Encounter Summary ---
Author Organization [employer] Address 75 [facility] 7t [place] [address] Care Team Providers Care Phone Operator Name Role Phone Yashira Bethea MD Primary Care Provider + [phone] Nilda Alford PharmD Unavailable Carina Malin Unavailable [phone] Reason for Visit * Reason Comments Med Refill Encounter Details Date Type Department Care Team (Late st Contact Info) Description 10/07/2024 Refill [facility] MEDICINE [address] [place], [place] [phone] Yashira Bethea MD [address] [place], [place] [phone] Mild intermittent asthma without complication Social History [...] the past 12 months, has t he [employer], gas, oil or water [employer] threatened to shut off services in your [...] Description 04/23/2025 10:00 AM EST Medication Management [facility] MEDICINE [address] [place] [address] Nilda Alford PharmD [address] [place] [address] documented as of this encounter Goals Goal [...] documented as of this encounter Care Teams Phone Operator Relationship Specialty Start Date End Date Yashira Bethea MD [address] [place] [address] PCP - General Family Medicine 05/02/13 Nilda Alford PharmD [address] [place] [address] Pharmacist Internal Medicine 06/16/22 Carina Malin [address] [address] Gastroenterology 10/04/24 documented as of this encounter
--- OUTSIDE RECORDS SUMMARY | 2025-04-14 19:42 | XMS_ITS | Encounter Summary ---
Author Organization [employer] Address 75 [facility] 7t [place] [address] Care Team Providers Care Barge Pilot Name Role Phone Yashira Bethea MD Primary Care Provider Nilda Alford PharmD Unavailable Carina Malin Unavailable [phone] Encounter Details Date Type Department Care Team (Late st Contact Info) Description 03/03/2023 Orders Only [facility] MEDICINE [address] [place] [phone] Yashira Bethea MD [address] [place] [address] [phone] Mild intermittent asthma without complication (Primary Dx) [...] Description 04/23/2025 10:00 AM EST Medication Management [facility] MEDICINE [address] [place] [address] Nilda Alford PharmD [address] [place] [address] documented as of this encounter Goals Goal [...] Primary documented in this encounter Care Teams Barge Pilot Relationship Specialty Start Date End Date Yashira Bethea MD [address] [place] [address] PCP - General Family Medicine 05/02/13 Nilda Alford PharmD [address] [place] [address] Pharmacist Internal Medicine 06/16/22 Carina Malin [address] [place] [address] Gastroenterology 10/04/24 documented as of this encounter
--- OUTSIDE RECORDS SUMMARY | 2025-04-14 19:42 | XMS_ITS | Encounter Summary ---
Author Organization [employer] Address 75 [facility] 7t [place] [address] Care Team Providers Care Adolescent Counselor Name Role Phone Yashira Bethea MD Primary Care Provider + [phone] Nilda Alford PharmD Unavailable Carina Malin Unavailable [phone] Encounter Details Date Type Department Care Team (Late st Contact Info) Description 08/18/2023 Orders Only [facility] MEDICINE 230 [place], [place] [phone] Yashira Bethea MD [address] [place], [place] [phone] Social History Tobacco Use Types Packs/Day Years [...] Description 04/23/2025 10:00 AM EST Medication Management [facility] MEDICINE [address] [place] [address] [phone] Nilda Alford PharmD [address] [place] [address] [phone] documented as of this encounter Goals Goal Patient Goal Type Associated Problems Recent Progress Patient-Stated? Author Blood Pressure < 140/90 Blood Pressure 136/89(2024 11:08 AM EDT) No Nilda Toney, PharmD Hemoglobin A1c < 7 Result Component 7.9( 11:50 AM EDT) No Nilda Toney PharmD documented as of this encounter Visit Diagnoses Not on filedocumented in this encounter Care Teams Adolescent Counselor Relationship Specialty Start Date End Date Yashira Bethea MD [address] [place] [address] [phone] PCP - General Family Medicine 05/02/13 Nilda Alford PharmD [address] [place] [address] [phone] Pharmacist Internal Medicine 06/16/22 Carina Malin [address] [place] [address] Gastroenterology 10/04/24 documented as of this encounter
== END 2025-04-14 19:39 | disposition home or self-care (01) ==
LOC: HO.MRI 19:38
PROVIDERS: PCP Family Medicine; Visit Provider Orthopaedic Surgery
DX: M25.312 Other instability, left shoulder (principal)
CPT/HCPCS: 73221